=== PATIENT | female | born 1995 | race Caucasian/White ===

== ENCOUNTER 2017-02-10 19:13 | Emergency (ER) | payer MEDICAID ==
[~2017-02-10] VITALS: Ht 149.9 cm; Wt 43.1 kg
[2017-02-10 19:20] VITALS: BP 134/87
[2017-02-10] MEDS ORDERED: FAMOTIDINE 20 MG/2 ML VIAL IVP ONE (19:30)
[2017-02-10] MEDS ORDERED: ONDANSETRON 4 MG/2 ML VIAL IVP ONE (19:30)
[2017-02-10] MEDS ORDERED: NACL 0.9% 1,000 ML IV ONE (19:30)
--- NOTE | 2017-02-10 19:45 | NUR ---
BIBA BLS TO ER BED 7
--- NOTE | 2017-02-10 19:45 | NUR ---
PATIENT PRESENTS TO ED WITH C/O GENERAL WEAKNESS X 1 WEEK WITH NEAR SYNCOPE WHEN AT HOME. PT STATES SHE IS ALSO 7 WEEKS AND C/O RIB PAIN 9/10 . PT DENIES N/V/D; SKIN IS PINK/WARM/DRY; AAOX4 WITH EVEN AND STEADY GAIT; LUNGS CLEAR BL; HR EVEN AND REGULAR; PT DENIES ANY FEVER, CP, SOB, OR COUGH AT THIS TIME; PATIENT STATES PAIN OF 9/10 AT THIS TIME; VSS; PATIENT POSITIONED FOR COMFORT; HOB ELEVATED; BEDRAILS UP X2; BED DOWN. ER MD MADE AWARE OF PT STATUS.
--- NOTE | 2017-02-10 19:46 | NUR ---
PT JUST STATED SHE HAS TUMOR IS BILAT BREAST AND RIGHT ARMPIT
[2017-02-10 19:53] LABS: BASOPHILS # (AUTO) 0.1 K/uL (0.00-0.22); BASOPHILS % (AUTO) 0.8 % (0.0-2.0); EOSINOPHILS # (AUTO) 0.5 K/uL (0-0.4); EOSINOPHILS % (AUTO) 5.6 % (0.0-4.0); HEMATOCRIT 37.6 % (36-48); HEMOGLOBIN 12.5 g/dL (12.0-16.0); LYMPHOCYTES # (AUTO) 0.9 K/uL (2.5-16.5); LYMPHOCYTES % (AUTO) 10.7 % (20.5-51.1); MEAN CORPUSCULAR HEMOGLOBIN 30 pg (27-31); MEAN CORPUSCULAR HGB CONC 33 g/dL (33-37); MEAN CORPUSCULAR VOLUME 90 fL (80-94); MONOCYTES # (AUTO) 0.7 K/uL (0.8-1.0); MONOCYTES % (AUTO) 8.7 % (1.7-9.3); NEUTROPHILS # (AUTO) 6.1 K/uL (1.8-7.7); NEUTROPHILS % (AUTO) 74.2 % (42.2-75.2); PLATELET COUNT (AUTO) 191 K/uL (140-450); RED CELL DISTRIBUTION WIDTH 12.3 % (11.6-13.7); WHITE BLOOD COUNT (AUTO) 8.3 K/uL (4.5-11.0)
[2017-02-10 20:03] LABS: ANION GAP 12.7 (8-16); CARBON DIOXIDE 25.8 mmol/L (21-32); CREATININE 0.4 mg/dL (0.6-1.3); POTASSIUM 3.5 mmol/L (3.5-5.1)
--- NOTE | 2017-02-10 20:06 | NUR ---
PT LEFT FOR ULTRASOUND
--- NOTE | 2017-02-10 20:45 | NUR ---
Patient being evaluated by physician DR YEH at bedside.
[2017-02-10 21:15] VITALS: BP 127/74
--- NOTE | 2017-02-10 21:15 | NUR ---
Patient discharged with v/s stable. Written and verbal after care instructions given and explained. Patient alert, oriented and verbalized understanding of instructions. Ambulatory with steady gait. All questions addressed prior to discharge. ID band removed. Patient advised to follow up with PMD. Rx of Zofran and Macrobid given. Patient educated on indication of medication including possible reaction and side effects. Opportunity to ask questions provided and answered.
== END 2017-02-10 21:15 | disposition home or self-care (01) ==
LOC: MED 19:13
DX: O23.41 Unspecified infection of urinary tract in pregnancy, first trimester (principal); O21.0 Mild hyperemesis gravidarum; Z3A.01 Less than 8 weeks gestation of pregnancy
CPT/HCPCS: 36415; 76801; 76817; 80048; 81002; 81025; 84702; 85025; 86900; 86901; 96361; 96374; 96375; 99285; J2405; J3490; J7030

== ENCOUNTER 2020-06-09 15:27 | Emergency (ER) | payer MEDICAID, OTHER ==
[~2020-06-09] VITALS: Ht 162.6 cm; Wt 59.0 kg
[2020-06-09 15:31] VITALS: BP 161/92
--- NOTE | 2020-06-09 15:48 | NUR ---
C/O VOMITING SINCE THIS MORNING AT 4 AM, LOWER LEFT QUADRANT PAIN, PT FEELS WEAK, STATES "IT FEELS LIKE IM GONNA FAINT" LMP: 05/18/2020 NO PMH NKA
[2020-06-09] MEDS ORDERED: ONDANSETRON 4 MG/2 ML VIAL IVP ONE (16:45)
[2020-06-09] MEDS ORDERED: HALOPERIDOL IM 5 MG/ML VIAL IVP ONE (16:45)
[2020-06-09] MEDS ORDERED: NACL 0.9% 1,000 ML IV ONE (16:45)
[2020-06-09 17:09] LABS: BASOPHILS % (AUTO) 0.2 % (0.0-2.0); HEMOGLOBIN 13.5 g/dL (12.0-16.0); LYMPHOCYTES # (AUTO) 0.4 K/uL (2.5-16.5); MEAN CORPUSCULAR HEMOGLOBIN 32 pg (27-31); MEAN CORPUSCULAR HGB CONC 34 g/dL (33-37); MEAN CORPUSCULAR VOLUME 93.2 fL (80-94); MONOCYTES # (AUTO) 0.2 K/uL (0.8-1.0); MONOCYTES % (AUTO) 2.3 % (1.7-9.3); NEUTROPHILS % (AUTO) 92.5 % (42.2-75.2); PLATELET COUNT (AUTO) 204 K/uL (140-450); RED BLOOD CELL COUNT(AUTO) 4.29 MIL/uL (4.20-5.40); RED CELL DISTRIBUTION WIDTH 12.8 % (11.6-13.7); WHITE BLOOD COUNT (AUTO) 7.5 K/uL (4.8-10.8)
[2020-06-09 17:23] LABS: ALBUMIN 5.1 g/dL (3.4-5.0); ANION GAP 21.7 (8-16); CARBON DIOXIDE 18.9 mmol/L (21-32); CREATININE 0.5 mg/dL (0.6-1.3); POTASSIUM 3.6 mmol/L (3.5-5.1); TOTAL BILIRUBIN 1.1 mg/dL (0.0-1.0)
[2020-06-09 17:26] LABS: APPEARANCE,URINE CLEAR (CLEAR); BILIRUBIN,URINE NEGATIVE (NEGATIVE); BLOOD, URINE NEGATIVE (NEGATIVE); COLOR,URINE YELLOW (YELLOW); LEUKOCYTE ESTERASE ,URINE NEGATIVE (NEGATIVE); NITRITE, URINE NEGATIVE (NEGATIVE); PH,URINE 7.5 (5.0-9.0); UGLUCOSE NEGATIVE (NEGATIVE)
[2020-06-09 17:44] LABS: BARBITURATE, URINE NEGATIVE ng/ml (NEG <=200); BENZODIAZEPINE, URINE NEGATIVE ng/mL (NEG <=200); CANNABINOID, URINE POSITIVE ng/mL (NEG <=50); COCAINE, URINE NEGATIVE ng/mL (NEG <=300); OPIATE, URINE NEGATIVE ng/mL (NEG <=2000); PHENCYCLIDINE SCREEN,URINE NEGATIVE ng/mL (NEG <=25)
[2020-06-09 18:10] VITALS: BP 161/92
== END 2020-06-09 18:11 | disposition home or self-care (01) ==
LOC: MED 15:27
DX: R11.15 Cyclical vomiting syndrome unrelated to migraine (principal); F12.90 Cannabis use, unspecified, uncomplicated; R10.9 Unspecified abdominal pain; R11.2 Nausea with vomiting, unspecified
CPT/HCPCS: 36415; 80053; 80305; 81003; 82150; 83690; 85025; 96361; 96374; 96375; 99284; J1630; J2405; 81025

== ENCOUNTER 2020-06-11 09:05 | Emergency (ER) | payer OTHER ==
[~2020-06-11] VITALS: Ht 149.9 cm; Wt 44.9 kg
[2020-06-11 09:07] VITALS: BP 133/76
--- NOTE | 2020-06-11 09:13 | NUR ---
Pt ambulated to bed 07
--- NOTE | 2020-06-11 09:18 | NUR ---
PT C/O LOWER ABDOMINAL/SUPRAPUBIC PAIN WITH DYSURIA FOR 3 DAYS EXACERBATING TODAY AT 4AM ACCOMPANIED BY PERSISTANT N/V X 3 DAYS. PT WAS SEEN IN OUR ER 3 DAYS AGO AND TX WITH ZOFRAN ONLY WITH RELIEF ON THE FIRST DAY. PT STATES WARM SHOWER RELIEVES SYMPTOMS BUT ONLY WHILE IN SHOWER. NO CVAT JASPER ON PERCUSSION. ABDOMEN SOFT, FLAT, BUT TENDER TO LIGHT AND DEEP PALPATION. PT DENIES ANY FEVER, CP, SOB, OR COUGH AT THIS TIME; PATIENT STATES PAIN OF 7/10 AT THIS TIME; VSS; PATIENT POSITIONED FOR COMFORT; HOB ELEVATED; BEDRAILS UP X1; BED DOWN. ER MD MADE AWARE OF PT STATUS.
[2020-06-11] MEDS ORDERED: ONDANSETRON 4 MG/2 ML VIAL IVP ONE (09:40)
[2020-06-11] MEDS ORDERED: NACL 0.9% 1,000 ML IV ONE (09:40)
[2020-06-11] MEDS ORDERED: KETOROLAC 30 MG/ML VIAL IVP ONE (09:40)
--- NOTE | 2020-06-11 09:49 | NUR ---
20g IV placed to pts left AC. Blood drawn at this time.
[2020-06-11 10:09] LABS: APPEARANCE,URINE HAZY (CLEAR); BILIRUBIN,URINE 1+ (NEGATIVE); BLOOD, URINE NEGATIVE (NEGATIVE); COLOR,URINE YELLOW (YELLOW); LEUKOCYTE ESTERASE ,URINE TRACE (NEGATIVE); NITRITE, URINE NEGATIVE (NEGATIVE); PH,URINE 6.5 (5.0-9.0); UGLUCOSE NEGATIVE (NEGATIVE)
[2020-06-11 10:13] LABS: BASOPHILS % (AUTO) 0.5 % (0.0-2.0); HEMATOCRIT 40.8 % (36-48); HEMOGLOBIN 14.1 g/dL (12.0-16.0); LYMPHOCYTES # (AUTO) 0.6 K/uL (2.5-16.5); LYMPHOCYTES % (AUTO) 12.1 % (20.5-51.1); MEAN CORPUSCULAR HEMOGLOBIN 32 pg (27-31); MEAN CORPUSCULAR HGB CONC 35 g/dL (33-37); MEAN CORPUSCULAR VOLUME 92.4 fL (80-94); MONOCYTES # (AUTO) 0.1 K/uL (0.8-1.0); MONOCYTES % (AUTO) 2.7 % (1.7-9.3); NEUTROPHILS # (AUTO) 4.1 K/uL (1.8-7.7); NEUTROPHILS % (AUTO) 84.7 % (42.2-75.2); PLATELET COUNT (AUTO) 224 K/uL (140-450); RED BLOOD CELL COUNT(AUTO) 4.41 MIL/uL (4.20-5.40); RED CELL DISTRIBUTION WIDTH 12.8 % (11.6-13.7); WHITE BLOOD COUNT (AUTO) 4.9 K/uL (4.8-10.8)
--- NOTE | 2020-06-11 10:19 | NUR ---
U/S IS AT BEDSIDE.
[2020-06-11 10:21] LABS: ALBUMIN 5.1 g/dL (3.4-5.0); ANION GAP 18.6 (8-16); CARBON DIOXIDE 23.7 mmol/L (21-32); CREATININE 0.7 mg/dL (0.6-1.3); POTASSIUM 3.3 mmol/L (3.5-5.1)
[2020-06-11 10:22] LABS: RBC,URINE 0-5 /HPF (0-5)
--- NOTE | 2020-06-11 10:49 | NUR ---
2ND URINE SAMPLE OBTAINED AND SENT TO THE LAB.
[2020-06-11 11:50] VITALS: BP 122/71
--- NOTE | 2020-06-11 11:50 | NUR ---
Patient discharged with v/s stable. Written and verbal after care instructions given and explained. Patient alert, oriented and verbalized understanding of instructions. Ambulatory with steady gait. All questions addressed prior to discharge. ID band removed. Patient advised to follow up with PMD. Rx of Zofran, Naprosyn, and Macrobid given. Patient educated on indication of medication including possible reaction and side effects. Opportunity to ask questions provided and answered.
[2020-06-14 06:17] LABS: CHLAMYDIA TRACHOMATIS AMP DNA Negative (Negative)
== END 2020-06-11 11:50 | disposition home or self-care (01) ==
LOC: MED 09:05
DX: N83.201 Unspecified ovarian cyst, right side (principal); N39.0 Urinary tract infection, site not specified; K21.9 Gastro-esophageal reflux disease without esophagitis; F12.90 Cannabis use, unspecified, uncomplicated
CPT/HCPCS: 36415; 76830; 80053; 81001; 81025; 83690; 85025; 87086; 93976; 96361; 96374; 96375; 99284; J1885; J2405; J7030; Q0092

== ENCOUNTER 2020-09-16 08:57 | Emergency (ER) | payer OTHER ==
[~2020-09-16] VITALS: Ht 147.3 cm; Wt 45.4 kg
[2020-09-16 09:12] VITALS: BP 115/69
--- NOTE | 2020-09-16 09:16 | NUR ---
24 y/o female A&OX4 c/o N/V X1day. Pt states she has had this happen before, states she feels weak and dizziness present. Denies fever, chill. Abdomen is soft, flat, non-tender, bowel sounds active X4. PMH: R ovarian cyst Denies RX NKA
[2020-09-16] MEDS ORDERED: NACL 0.9% 1,000 ML IV ONE (09:30)
[2020-09-16] MEDS ORDERED: ONDANSETRON 4 MG/2 ML VIAL IVP ONE (09:30)
--- NOTE | 2020-09-16 09:30 | NUR ---
Established IV to right AC, good blood return noted. Pt tolerated procedure well.
[2020-09-16 09:51] LABS: BASOPHILS % (AUTO) 0.3 % (0.0-2.0); HEMATOCRIT 40.5 % (36-48); HEMOGLOBIN 13.8 g/dL (12.0-16.0); LYMPHOCYTES # (AUTO) 0.8 K/uL (2.5-16.5); LYMPHOCYTES % (AUTO) 7.1 % (20.5-51.1); MEAN CORPUSCULAR HEMOGLOBIN 31 pg (27-31); MEAN CORPUSCULAR HGB CONC 34 g/dL (33-37); MEAN CORPUSCULAR VOLUME 91.1 fL (80-94); MONOCYTES # (AUTO) 0.4 K/uL (0.8-1.0); MONOCYTES % (AUTO) 3.4 % (1.7-9.3); NEUTROPHILS # (AUTO) 10.1 K/uL (1.8-7.7); NEUTROPHILS % (AUTO) 89.2 % (42.2-75.2); PLATELET COUNT (AUTO) 202 K/uL (140-450); RED BLOOD CELL COUNT(AUTO) 4.44 MIL/uL (4.20-5.40); RED CELL DISTRIBUTION WIDTH 12.8 % (11.6-13.7); WHITE BLOOD COUNT (AUTO) 11.3 K/uL (4.8-10.8)
[2020-09-16] MEDS ORDERED: HALOPERIDOL IM 5 MG/ML VIAL IVP ONE (10:25)
[2020-09-16 10:44] LABS: ALBUMIN 5.3 g/dL (3.4-5.0); ANION GAP 20.5 (8-16); CARBON DIOXIDE 21.8 mmol/L (21-32); CREATININE 0.6 mg/dL (0.6-1.3); POTASSIUM 3.3 mmol/L (3.5-5.1); TOTAL BILIRUBIN 0.8 mg/dL (0.0-1.0)
--- NOTE | 2020-09-16 11:47 | NUR ---
Pt sleeping, visible rise and fall of chest VSS, will continue to monitor.
[2020-09-16 12:01] LABS: BILIRUBIN,URINE NEGATIVE (NEGATIVE); BLOOD, URINE NEGATIVE (NEGATIVE); COLOR,URINE YELLOW (YELLOW); LEUKOCYTE ESTERASE ,URINE NEGATIVE (NEGATIVE); NITRITE, URINE NEGATIVE (NEGATIVE); PH,URINE 7.5 (5.0-9.0); UGLUCOSE NEGATIVE (NEGATIVE)
[2020-09-16 12:11] LABS: BARBITURATE, URINE NEGATIVE ng/ml (NEG <=200); BENZODIAZEPINE, URINE NEGATIVE ng/mL (NEG <=200); CANNABINOID, URINE POS ng/mL (NEG <=50); COCAINE, URINE NEGATIVE ng/mL (NEG <=300); OPIATE, URINE NEGATIVE ng/mL (NEG <=2000); PHENCYCLIDINE SCREEN,URINE NEGATIVE ng/mL (NEG <=25)
[2020-09-16 12:13] LABS: RBC,URINE 0-5 /HPF (0-5); WBC,URINE 0-5 /HPF (0-5)
[2020-09-16 12:14] LABS: APPEARANCE,URINE SLIGHTLY HAZY (CLEAR)
--- NOTE | 2020-09-16 13:09 | NUR ---
Dr. Hunter at pt bedside.
[2020-09-16 13:26] VITALS: BP 104/58
--- NOTE | 2020-09-16 13:27 | NUR ---
Patient discharged with v/s stable. Written and verbal after care instructions given and explained. Patient alert, oriented and verbalized understanding of instructions. Ambulatory with steady gait. All questions addressed prior to discharge. ID band removed. Patient advised to follow up with PMD. Rx of Zofran 4mg given. Patient educated on indication of medication including possible reaction and side effects. Opportunity to ask questions provided and answered.
== END 2020-09-16 13:27 | disposition home or self-care (01) ==
LOC: MED 08:57
DX: R11.2 Nausea with vomiting, unspecified (principal); T40.7X5A Adverse effect of cannabis (derivatives), initial encounter; K21.9 Gastro-esophageal reflux disease without esophagitis; F12.90 Cannabis use, unspecified, uncomplicated; Y92.89 Other specified places as the place of occurrence of the external cause
CPT/HCPCS: 36415; 80053; 80305; 81001; 81025; 84702; 85025; 96361; 96374; 96375; 99284; J1630; J2405; J7030

== ENCOUNTER 2020-10-08 10:17 | Emergency (ER) | payer OTHER ==
[~2020-10-08] VITALS: Ht 149.9 cm; Wt 56.7 kg
[2020-10-08 10:27] VITALS: BP 137/84
--- NOTE | 2020-10-08 10:32 | NUR ---
PT AMB TO BED 12
--- NOTE | 2020-10-08 10:40 | NUR ---
PT C/O NAUSEA, VOMITING, AND UPPER ABDOMINAL PAIN 10/10 SINCE 5AM THIS MORNING. DENIES COVID EXPOSURE. ABDOMEN IS SOFT AND TENDER TO PALPATION. PMH: GERD
[2020-10-08] MEDS ORDERED: NACL 0.9% 1,000 ML IV SCH (10:45)
[2020-10-08] MEDS ORDERED: ONDANSETRON 4 MG/2 ML VIAL IVP ONE (10:45)
[2020-10-08] MEDS ORDERED: FAMOTIDINE 20 MG/2 ML VIAL IVP ONE (10:45)
[2020-10-08] MEDS ORDERED: HALOPERIDOL IM 5 MG/ML VIAL IM ONE (11:05)
[2020-10-08] MEDS ORDERED: HALOPERIDOL IM 5 MG/ML VIAL ONE (11:06)
[2020-10-08 11:23] LABS: BASOPHILS % (AUTO) 0.5 % (0.0-2.0); EOSINOPHILS % (AUTO) 0.1 % (0.0-4.0); HEMATOCRIT 40.1 % (36-48); HEMOGLOBIN 13.9 g/dL (12.0-16.0); LYMPHOCYTES # (AUTO) 0.7 K/uL (2.5-16.5); LYMPHOCYTES % (AUTO) 9.7 % (20.5-51.1); MEAN CORPUSCULAR HEMOGLOBIN 31 pg (27-31); MEAN CORPUSCULAR HGB CONC 35 g/dL (33-37); MEAN CORPUSCULAR VOLUME 89.4 fL (80-94); MONOCYTES # (AUTO) 0.1 K/uL (0.8-1.0); NEUTROPHILS # (AUTO) 6.2 K/uL (1.8-7.7); NEUTROPHILS % (AUTO) 87.7 % (42.2-75.2); PLATELET COUNT (AUTO) 236 K/uL (140-450); RED BLOOD CELL COUNT(AUTO) 4.49 MIL/uL (4.20-5.40); RED CELL DISTRIBUTION WIDTH 12.9 % (11.6-13.7); WHITE BLOOD COUNT (AUTO) 7.1 K/uL (4.8-10.8)
[2020-10-08 11:35] LABS: ALBUMIN 4.9 g/dL (3.4-5.0); ANION GAP 20.7 (8-16); CARBON DIOXIDE 18.4 mmol/L (21-32); CREATININE 0.7 mg/dL (0.6-1.3); POTASSIUM 3.1 mmol/L (3.5-5.1); TOTAL BILIRUBIN 0.7 mg/dL (0.0-1.0)
[2020-10-08] MEDS ORDERED: POTASSIUM CHLORIDE 10 MEQ TABER PO ONE (11:50)
[2020-10-08] MEDS ORDERED: MAGNESIUM OXIDE 400 MG TAB PO ONE (11:50)
[2020-10-08 12:31] VITALS: BP 125/85
--- NOTE | 2020-10-08 12:31 | NUR ---
Patient discharged with v/s stable. Written and verbal after care instructions given and explained. Patient alert, oriented and verbalized understanding of instructions. Ambulatory with steady gait. All questions addressed prior to discharge. ID band removed. Patient advised to follow up with PMD. Rx of ZOFRAN, PEPCID given. Patient educated on indication of medication including possible reaction and side effects. Opportunity to ask questions provided and answered.
== END 2020-10-08 12:31 | disposition home or self-care (01) ==
LOC: MED 10:17
DX: R11.2 Nausea with vomiting, unspecified (principal); F12.188 Cannabis abuse with other cannabis-induced disorder; E87.6 Hypokalemia; R03.0 Elevated blood-pressure reading, without diagnosis of hypertension
CPT/HCPCS: 36415; 80053; 81025; 83690; 85025; 96361; 96372; 96374; 96375; 99284; J1630; J2405; J3490; J7030

== ENCOUNTER 2020-10-11 11:41 | Emergency (ER) | payer OTHER ==
[2020-10-11] MEDS ORDERED: ONDANSETRON 4 MG ODT ONE (13:36)
[2020-10-11] MEDS ORDERED: KETOROLAC 30 MG/ML VIAL ONE (13:36)
[2020-10-11] MEDS ORDERED: HALOPERIDOL IM 5 MG/ML VIAL ONE (14:22)
== END 2020-10-11 14:56 | disposition home or self-care (01) ==
LOC: MED 11:41
DX: R11.10 Vomiting, unspecified (principal)
CPT/HCPCS: 96372; 99283; J1630; J1885; Q0162; 99281

== ENCOUNTER 2021-05-18 16:17 | Emergency (ER) | payer OTHER ==
[~2021-05-18] VITALS: Ht 149.9 cm; Wt 47.6 kg
[2021-05-18 16:49] VITALS: BP 146/93
--- NOTE | 2021-05-18 17:42 | NUR ---
25 Y/O FEMALE C/O VOMITING X1DAY PT STATES 10 TIMES WITH PELVIC PAIN 9/10 NON-RADIATING. PT STATES SHE SMOKED MARIJUANA A FEW DAYS AGO. DENIES FEVER/CHILLS. DENIES PMH NKA
[2021-05-18] MEDS ORDERED: KETOROLAC 15 MG/ML VIAL IVP ONE ×2 (17:50→18:40)
[2021-05-18] MEDS ORDERED: ONDANSETRON 4 MG/2 ML VIAL IVP ONE (17:50)
[2021-05-18] MEDS ORDERED: NACL 0.9% 1,000 ML IV ONE (17:50)
[2021-05-18] MEDS ORDERED: KETOROLAC 15 MG/ML VIAL ONE (17:55)
[2021-05-18] MEDS ORDERED: HALOPERIDOL IM 5 MG/ML VIAL IM ONE (18:25)
--- NOTE | 2021-05-18 19:03 | NUR ---
PT REFUSED PELVIC EXAM
[2021-05-18] MEDS ORDERED: ONDA-24 PO (19:11)
[2021-05-18] MEDS ORDERED: IBUP-2213 PO (19:11)
--- NOTE | 2021-05-18 19:12 | NUR ---
Pt report received from RUPERT Sol for continuation of care at this time.
--- NOTE | 2021-05-18 19:20 | NUR ---
ENDORSED TO DATABASE DBA FOR CONTINUOUS OF CARE
--- NOTE | 2021-05-18 19:48 | NUR ---
Patient reports she is allergic to ibuprofen. ERMD made aware.
[2021-05-18 19:50] VITALS: BP 138/87
[2021-05-19] MEDS ORDERED: CETI10SG1 PO (10:06)
[2021-05-19] MEDS ORDERED: FLUO0.0210 TP (10:06)
== END 2021-05-18 19:50 | disposition home or self-care (01) ==
LOC: MED 16:17
DX: N83.202 Unspecified ovarian cyst, left side (principal); G89.29 Other chronic pain; R11.2 Nausea with vomiting, unspecified; K21.9 Gastro-esophageal reflux disease without esophagitis; F12.90 Cannabis use, unspecified, uncomplicated; Z79.899 Other long term (current) drug therapy; Z88.6 Allergy status to analgesic agent
CPT/HCPCS: 36415; 76830; 81002; 81025; 87491; 96361; 96374; 96375; 96376; 99284; J1630; J1885; J2405; J7030; Q0163

== ENCOUNTER 2021-05-19 09:42 | Emergency (ER) | payer OTHER ==
[~2021-05-19] VITALS: Ht 149.9 cm; Wt 49.4 kg
[~2021-05-19 09:42] MED LIST: ONDA-24 PO
[2021-05-19 09:51] VITALS: BP 130/87
[2021-05-19] MEDS ORDERED: FLUO0.0210 TP (10:06)
[2021-05-19] MEDS ORDERED: CETI10SG1 PO (10:06)
[2021-05-19 10:19] VITALS: BP 130/87
--- NOTE | 2021-05-19 10:20 | NUR ---
Patient assessed, treated, and discharged with v/s stable by Dr Vasquez. Written and verbal after care instructions about contact dermatitis given and explained. Patient alert, oriented and verbalized understanding of instructions. Ambulatory with steady gait. All questions addressed prior to discharge. ID band removed. Patient advised to follow up with PMD. Rx of synalar, zyrtec given. Patient educated on indication of medication including possible reaction and side effects. Opportunity to ask questions provided and answered.
== END 2021-05-19 10:20 | disposition home or self-care (01) ==
LOC: MED 09:42
DX: L25.9 Unspecified contact dermatitis, unspecified cause (principal); K21.9 Gastro-esophageal reflux disease without esophagitis; Z88.6 Allergy status to analgesic agent; Z79.899 Other long term (current) drug therapy
CPT/HCPCS: 99283

== ENCOUNTER 2021-06-14 09:42 | Emergency (ER) | payer OTHER ==
[~2021-06-14 09:42] MED LIST changes: +CETI10SG1 PO; +FLUO0.0210 TP
--- NOTE | 2021-06-14 10:22 | NUR ---
CALLED AT 10.15 & 1022 .NO SHOW
--- NOTE | 2021-06-14 12:11 | NUR ---
LEFT WITHOUT BEING SEEN, NAME CALLED, NO ANSWER.
== END 2021-06-14 10:15 | disposition left against medical advice (07) ==
LOC: MED 09:42
DX: Z53.21 Procedure and treatment not carried out due to patient leaving prior to being seen by health care provider (principal)

== ENCOUNTER 2021-07-08 12:14 | Emergency (ER) | payer OTHER ==
[~2021-07-08] VITALS: Ht 149.9 cm; Wt 49.9 kg
--- NOTE | 2021-07-08 12:16 | NUR ---
PT BROUGHT TO BED 14 VIA [facility]
[2021-07-08 12:21] VITALS: BP 134/83
--- NOTE | 2021-07-08 13:56 | NUR ---
ADVISED RAMESH IQBAL OF PERSISTANT VOMITTING AND PATIENT'S COMPLAINT. NO ORDERS RECEIVED AT THIS TIME.
--- NOTE | 2021-07-08 14:00 | NUR ---
GWENDOLYN collected, walked to lab and handed to CPT. Marty
--- NOTE | 2021-07-08 14:09 | NUR ---
MD Busch evaluating pt at bedside
[2021-07-08] MEDS ORDERED: diphenhydrAMINE 50 MG/ML VIAL IVP ONE (14:15)
[2021-07-08] MEDS ORDERED: HALOPERIDOL IM 5 MG/ML VIAL IM ONE (14:15)
[2021-07-08] MEDS ORDERED: NACL 0.9% 1,000 ML IV ONE (14:15)
--- NOTE | 2021-07-08 16:51 | NUR ---
Patient does not wish to proceed with medical care recommended by DR ADAMSON. Patient given information related to possible complications, up to and including , which could occur as a result of leaving hospital at this time. Patient verbalizes understanding of risks involved leaving against medical advice. Patient has signed AMA form.IV REMOVED
[2021-07-08 16:52] VITALS: BP 134/83
== END 2021-07-08 16:51 | disposition left against medical advice (07) ==
LOC: MED 12:14
DX: R10.30 Lower abdominal pain, unspecified (principal); R19.7 Diarrhea, unspecified; R11.2 Nausea with vomiting, unspecified; F12.10 Cannabis abuse, uncomplicated; K21.9 Gastro-esophageal reflux disease without esophagitis; Z88.6 Allergy status to analgesic agent
CPT/HCPCS: 81002; 81025; 96372; 96374; 99284; J1200; J1630; J7030

== ENCOUNTER 2021-07-10 05:10 | Emergency (ER) | payer OTHER ==
[~2021-07-10] VITALS: Ht 149.9 cm; Wt 49.9 kg
--- NOTE | 2021-07-10 05:28 | NUR ---
[facility] TO ER BED 4
[2021-07-10 05:32] VITALS: BP 128/82
--- NOTE | 2021-07-10 05:40 | NUR ---
25 YO FEMALE BIBA TO BED 4 WITH C/O VOMITING AND ABDOMINAL PAIN X 3 DAYS. IS AWAKE AND ALERT, VERY RESTLESS. IS VOMITING UPON ARRIVAL MED HX: OVARIAN CYSTS, ABDOMINAL SURGERIES, SIEZURES, MUSCLE SPASMS ALLERGIES: IBUPROFEN
[2021-07-10 06:22] LABS: BASOPHILS % (AUTO) 0.5 % (0.0-2.0); EOSINOPHILS % (AUTO) 0.1 % (0.0-4.0); HEMATOCRIT 35.2 % (36-48); HEMOGLOBIN 12.2 g/dL (12.0-16.0); LYMPHOCYTES # (AUTO) 0.7 K/uL (2.5-16.5); LYMPHOCYTES % (AUTO) 12.7 % (20.5-51.1); MEAN CORPUSCULAR HEMOGLOBIN 31 pg (27-31); MEAN CORPUSCULAR HGB CONC 35 g/dL (33-37); MEAN CORPUSCULAR VOLUME 89.9 fL (80-94); MONOCYTES # (AUTO) 0.2 K/uL (0.8-1.0); MONOCYTES % (AUTO) 4.2 % (1.7-9.3); NEUTROPHILS # (AUTO) 4.8 K/uL (1.8-7.7); NEUTROPHILS % (AUTO) 82.5 % (42.2-75.2); PLATELET COUNT (AUTO) 224 K/uL (140-450); RED BLOOD CELL COUNT(AUTO) 3.92 MIL/uL (4.20-5.40); WHITE BLOOD COUNT (AUTO) 5.8 K/uL (4.8-10.8)
[2021-07-10] MEDS: diphenhydrAMINE 50 MG/ML VIAL IVP ONE (06:24)
[2021-07-10] MEDS: ONDANSETRON 4 MG/2 ML VIAL IVP ONE (06:25)
[2021-07-10] MEDS: HALOPERIDOL IM 5 MG/ML VIAL IVP ONE (06:27)
[2021-07-10 06:50] LABS: ANION GAP 18.3 (8-16); CARBON DIOXIDE 20.8 mmol/L (21-32); CREATININE 0.6 mg/dL (0.6-1.3); POTASSIUM 3.1 mmol/L (3.5-5.1)
[2021-07-10 06:59] LABS: ALBUMIN 4.8 g/dL (3.4-5.0); TOTAL BILIRUBIN 0.7 mg/dL (0.0-1.0)
--- NOTE | 2021-07-10 07:19 | NUR ---
RECEIVED REPORT FROM MARGOTH EMERY. ASSUMED CARE AT THIS TIME.
--- NOTE | 2021-07-10 07:21 | NUR ---
Patient appears to be resting with eyes closed. Respirations even and unlabored, on bedside bus driver/monitor. VSS. Will continue to monitor.
[2021-07-10] MEDS ORDERED: LOPE-289 PO (07:36)
[2021-07-10] MEDS ORDERED: ONDA8TAB87 PO (07:36)
[2021-07-10 07:54] VITALS: BP 110/56
--- NOTE | 2021-07-10 07:54 | NUR ---
Patient discharged with v/s stable. Written and verbal after care instructions given and explained. Patient alert, oriented and verbalized understanding of instructions. Ambulatory with steady gait. All questions addressed prior to discharge. ID band removed. Patient advised to follow up with PMD. Rx of Immodium and Zofran given. Patient educated on indication of medication including possible reaction and side effects. Opportunity to ask questions provided and answered.
[2021-07-10] MEDS ORDERED: BACL10TA4 PO (17:32)
[2021-07-11] MEDS ORDERED: ATA25 PO (18:09)
== END 2021-07-10 07:54 | disposition home or self-care (01) ==
LOC: MED 05:10
DX: R10.30 Lower abdominal pain, unspecified (principal); R11.2 Nausea with vomiting, unspecified; R19.7 Diarrhea, unspecified; K21.9 Gastro-esophageal reflux disease without esophagitis; F12.90 Cannabis use, unspecified, uncomplicated; Z98.890 Other specified postprocedural states; Z79.899 Other long term (current) drug therapy; Z88.6 Allergy status to analgesic agent
CPT/HCPCS: 36415; 80053; 81002; 81025; 83690; 85025; 96374; 96375; 99284; J1200; J1630; J2405; 99283

== ENCOUNTER 2021-07-10 15:08 | Emergency (ER) | payer OTHER ==
[~2021-07-10] VITALS: Ht 149.9 cm; Wt 49.9 kg
[~2021-07-10 15:08] MED LIST changes: +LOPE-289 PO; +ONDA8TAB87 PO
[2021-07-10 15:36] VITALS: BP 138/96
[2021-07-10] MEDS: BENZTROPINE 2 MG/2 ML AMP IM ONE (15:54)
[2021-07-10] MEDS: LORazepam 1 MG TAB PO ONE (15:55)
--- NOTE | 2021-07-10 15:57 | NUR ---
25 Y/O FEMALE C/O ANXIETY, "SHAKINESS AND NERVOUSNESS". PT STATES SHE WAS SEEN AT [facility] EARLIER THIS WEEK AND WAS TOLD "SHE DIDN'T HAVE ANYTHING". PT SEEN HERE IN ER X6HRS AGO STATES SHE IS FEELING SYMPTOMS AGAIN. DENIES N/V, DENIES FEVER/CHILLS. DENIES PMH ALLERGIES: IBUPROFEN
[2021-07-10] MEDS ORDERED: BACL10TA4 PO (17:32)
[2021-07-10 17:41] VITALS: BP 138/96
--- NOTE | 2021-07-10 17:42 | NUR ---
Patient discharged with v/s stable. Written and verbal after care instructions given and explained. Patient alert, oriented and verbalized understanding of instructions. Ambulatory with steady gait. All questions addressed prior to discharge. ID band removed. Patient advised to follow up with PMD. Rx of BACLOFEN given. Patient educated on indication of medication including possible reaction and side effects. Opportunity to ask questions provided and answered.
[2021-07-11] MEDS ORDERED: ATA25 PO (18:09)
== END 2021-07-10 17:42 | disposition home or self-care (01) ==
LOC: MED 15:08
DX: R25.8 Other abnormal involuntary movements (principal); M62.838 Other muscle spasm; R11.0 Nausea; K21.9 Gastro-esophageal reflux disease without esophagitis; F12.90 Cannabis use, unspecified, uncomplicated; Z79.899 Other long term (current) drug therapy; Z88.6 Allergy status to analgesic agent
CPT/HCPCS: 93005; 96372; 99283; J0515

== ENCOUNTER 2021-07-11 15:50 | Emergency (ER) | payer OTHER ==
[~2021-07-11] VITALS: Ht 149.9 cm; Wt 49.9 kg
[~2021-07-11 15:50] MED LIST changes: +BACL10TA4 PO
[2021-07-11 15:57] VITALS: BP 125/92
--- NOTE | 2021-07-11 16:03 | NUR ---
PT SENT TO LOBBY
[2021-07-11] MEDS ORDERED: LORazepam 1 MG TAB PO ONE (16:25)
--- NOTE | 2021-07-11 16:40 | NUR ---
25/F PRESENTS TO ED WITH C/O SHAKING AND PALPITATIONS. PATIENT STATES SHES BEEN FEELING ANXIOUS SINCE THIS MORNING STATING "I FEEL LIKE SOMETHING IS CRAWLING ON MY SKIN." DENIES ALCOHOL OR DRUG USE. STATES SHE WAS SEEN HERE YESTERDAY FOR THE SAME SYMPTOMS BUT STATES SYMPTOMS REOCCURED THIS MORNING. ALSO C/O 4/10 LEFT SIDED ABDOMINAL PAIN, DENIES N/V/D, DENIES CP, SOB, FEVER, CHILLS.
[2021-07-11 16:56] LABS: BASOPHILS % (AUTO) 0.6 % (0.0-2.0); EOSINOPHILS % (AUTO) 0.1 % (0.0-4.0); HEMATOCRIT 38.4 % (36-48); HEMOGLOBIN 13.1 g/dL (12.0-16.0); LYMPHOCYTES # (AUTO) 1.2 K/uL (2.5-16.5); LYMPHOCYTES % (AUTO) 15.5 % (20.5-51.1); MEAN CORPUSCULAR HEMOGLOBIN 31 pg (27-31); MEAN CORPUSCULAR HGB CONC 34 g/dL (33-37); MEAN CORPUSCULAR VOLUME 91.5 fL (80-94); MONOCYTES # (AUTO) 0.4 K/uL (0.8-1.0); NEUTROPHILS # (AUTO) 6.1 K/uL (1.8-7.7); NEUTROPHILS % (AUTO) 78.8 % (42.2-75.2); PLATELET COUNT (AUTO) 302 K/uL (140-450); RED CELL DISTRIBUTION WIDTH 12.9 % (11.6-13.7); WHITE BLOOD COUNT (AUTO) 7.8 K/uL (4.8-10.8)
[2021-07-11] MEDS ORDERED: BENZTROPINE 2 MG/2 ML AMP IM ONE (17:05)
[2021-07-11 17:16] LABS: ANION GAP 19.4 (8-16); CARBON DIOXIDE 22.5 mmol/L (21-32); CREATININE 0.7 mg/dL (0.6-1.3)
[2021-07-11 17:21] LABS: POTASSIUM 2.9 mmol/L (3.5-5.1)
[2021-07-11] MEDS ORDERED: ATA25 PO (18:09)
[2021-07-11 19:00] VITALS: BP 111/76
--- NOTE | 2021-07-11 19:00 | NUR ---
Patient discharged with v/s stable. Written and verbal after care instructions given and explained. Patient alert, oriented and verbalized understanding of instructions. Ambulatory with steady gait. All questions addressed prior to discharge. ID band removed. Patient advised to follow up with PMD. Rx of Atarax given. Patient educated on indication of medication including possible reaction and side effects. Opportunity to ask questions provided and answered.
[2021-07-12] MEDS ORDERED: LORA-476 PO (21:27)
== END 2021-07-11 19:00 | disposition home or self-care (01) ==
LOC: MED 15:50
DX: E87.6 Hypokalemia (principal); F41.9 Anxiety disorder, unspecified; K21.9 Gastro-esophageal reflux disease without esophagitis; Z88.6 Allergy status to analgesic agent; Z79.899 Other long term (current) drug therapy
CPT/HCPCS: 36415; 80048; 84484; 85025; 93005; 96372; 99284; J0515

== ENCOUNTER 2021-07-12 18:37 | Emergency (ER) | payer OTHER ==
[~2021-07-12] VITALS: Ht 149.9 cm; Wt 49.9 kg
[~2021-07-12 18:37] MED LIST changes: +ATA25 PO
[2021-07-12 18:44] VITALS: BP 113/68
--- NOTE | 2021-07-12 19:09 | NUR ---
BIB BOYFRIEND C/O ANXIETY, 05/03 RIVERA, BODY SHAKING X TODAY. PMH: ANXIETY, DEPRESSION, BIPOLAR.
--- NOTE | 2021-07-12 19:11 | NUR ---
PATIENT AMBULATED TO BED4.
--- NOTE | 2021-07-12 19:38 | NUR ---
Dr. Willis examining patient.
--- NOTE | 2021-07-12 19:40 | NUR ---
Patient presents c/o feeling anxious and reports similiar symptoms in the past. Seen here at [facility] Wednesday and states medication provided in ER alleviated symptoms. States left-sided chest tenderness that radiates to sternal, /10, "tender/sharp/intermittent" pain. Denies any medications prior to arrival. States recent stressors of of grandpa. Pt in no distress at this time. VSS; respirations even/unlabored. Bed locked in lowest position, side rails x 1, call light in reach. PMH: Seizures, anxiety, depression Meds: Abilify, prozac, gabapentin Sx: ovarian cyst 06/14
[2021-07-12] MEDS ORDERED: LORazepam 1 MG TAB PO ONE (19:55)
--- NOTE | 2021-07-12 20:07 | NUR ---
Lab at bedside
[2021-07-12 20:14] LABS: BASOPHILS % (AUTO) 0.8 % (0.0-2.0); EOSINOPHILS % (AUTO) 0.5 % (0.0-4.0); HEMATOCRIT 34.3 % (36-48); HEMOGLOBIN 11.9 g/dL (12.0-16.0); LYMPHOCYTES # (AUTO) 1.4 K/uL (2.5-16.5); LYMPHOCYTES % (AUTO) 23.8 % (20.5-51.1); MEAN CORPUSCULAR HEMOGLOBIN 31 pg (27-31); MEAN CORPUSCULAR HGB CONC 35 g/dL (33-37); MEAN CORPUSCULAR VOLUME 89.4 fL (80-94); MONOCYTES # (AUTO) 0.5 K/uL (0.8-1.0); MONOCYTES % (AUTO) 8.1 % (1.7-9.3); NEUTROPHILS # (AUTO) 3.9 K/uL (1.8-7.7); NEUTROPHILS % (AUTO) 66.8 % (42.2-75.2); PLATELET COUNT (AUTO) 256 K/uL (140-450); RED BLOOD CELL COUNT(AUTO) 3.83 MIL/uL (4.20-5.40); RED CELL DISTRIBUTION WIDTH 12.9 % (11.6-13.7); WHITE BLOOD COUNT (AUTO) 5.8 K/uL (4.8-10.8)
[2021-07-12 20:37] LABS: ALBUMIN 4.8 g/dL (3.4-5.0); ANION GAP 15.4 (8-16); CARBON DIOXIDE 24.1 mmol/L (21-32); CREATININE 0.6 mg/dL (0.6-1.3); POTASSIUM 3.5 mmol/L (3.5-5.1); TOTAL BILIRUBIN 0.7 mg/dL (0.0-1.0)
--- NOTE | 2021-07-12 20:37 | NUR ---
Patient reports positive relief after Ativan PO. "I feel a little better now." All pt needs met at this time.
[2021-07-12 20:47] LABS: FREE T4 (FREE THYROXINE) 1.43 ng/dL (0.76-1.46); THYROID STIMULATING HORMONE 0.69 uIU/mL (0.34-3.74)
[2021-07-12 21:00] VITALS: BP 108/72
[2021-07-12] MEDS ORDERED: LORA-476 PO (21:27)
== END 2021-07-12 21:33 | disposition home or self-care (01) ==
LOC: MED 18:37
DX: F41.0 Panic disorder [episodic paroxysmal anxiety] (principal); F32.9 Major depressive disorder, single episode, unspecified; F43.21 Adjustment disorder with depressed mood; K21.9 Gastro-esophageal reflux disease without esophagitis; Z88.6 Allergy status to analgesic agent; Z79.899 Other long term (current) drug therapy
CPT/HCPCS: 36415; 80053; 84439; 84443; 85025; 99283

== ENCOUNTER 2021-07-21 19:24 | Emergency (ER) | payer OTHER ==
[~2021-07-21] VITALS: Ht 149.9 cm; Wt 49.9 kg
[~2021-07-21 19:24] MED LIST changes: +LORA-476 PO
[2021-07-21 19:54] VITALS: BP 122/59
--- NOTE | 2021-07-21 19:57 | NUR ---
TO LOBBY A/W BED AMBULATORY
[2021-07-21] MEDS ORDERED: HYDROXYZINE HYDROCHLORIDE 25 MG TAB PO STA (20:36)
[2021-07-21] MEDS ORDERED: diphenhydrAMINE 50 MG/ML VIAL IM ONE (20:40)
--- NOTE | 2021-07-21 20:59 | NUR ---
PT TAKEN TO XRAY
--- NOTE | 2021-07-21 21:04 | NUR ---
PT RETURN TO [facility]
[2021-07-21] MEDS ORDERED: diphenhydrAMINE 50 MG/ML VIAL ONE (21:43)
[2021-07-21] MEDS ORDERED: HYDROXYZINE HYDROCHLORIDE 25 MG TAB ONE (21:43)
[2021-07-21] MEDS ORDERED: ATA25 PO (22:51)
--- NOTE | 2021-07-21 23:01 | NUR ---
Patient discharged with v/s stable. Written and verbal after care instructions given and explained. Patient alert, oriented and verbalized understanding of instructions. Ambulatory with steady gait. All questions addressed prior to discharge. ID band removed. Patient advised to follow up with PMD. Rx of ATARAX given. Patient educated on indication of medication including possible reaction and side effects. Opportunity to ask questions provided and answered.
== END 2021-07-21 23:01 | disposition home or self-care (01) ==
LOC: MED 19:24
DX: F41.9 Anxiety disorder, unspecified (principal); K21.9 Gastro-esophageal reflux disease without esophagitis; F12.90 Cannabis use, unspecified, uncomplicated; F14.90 Cocaine use, unspecified, uncomplicated; Z79.899 Other long term (current) drug therapy; Z88.8 Allergy status to other drugs, medicaments and biological substances
CPT/HCPCS: 36415; 71045; 84484; 96372; 99284; J1200

== ENCOUNTER 2021-07-23 07:17 | Emergency (ER) | payer OTHER ==
[~2021-07-23] VITALS: Ht 149.9 cm; Wt 46.7 kg
[2021-07-23 07:22] VITALS: BP 111/62
--- NOTE | 2021-07-23 07:35 | NUR ---
DR. KLINE BEDSIDE EVALUATING PT
--- NOTE | 2021-07-23 07:37 | NUR ---
25 Y F C/O CHEST PAIN SINCE LAST NIGHT THAT IS NON-RADIATING. PT STATED PAIN IS FELT LIKE "FLUTTERING IN THE MIDDLE AND RIGHT UNDER HER L BREAST." PT HAS ALSO FELT N/V AND ABDOMINAL PAIN X 4 HOURS. UPON ASSSESSMENT PT HAS TENDERNESS WITH PALPATION, BREATH SOUNDS HEARD, AND S1/S2 HEARD. PMH: ANXIETY MEDS: ATARAX ALLERGY: IBUPROFEN
[2021-07-23] MEDS ORDERED: LORazepam 2 MG/ML VIAL IM ONE (07:50)
[2021-07-23] MEDS ORDERED: ONDANSETRON 4 MG ODT PO ONE (07:50)
[2021-07-23] MEDS ORDERED: hydrOXYzine PAMOATE 25 MG CAP PO STA (07:55)
[2021-07-23 08:24] VITALS: BP 111/62
--- NOTE | 2021-07-23 08:25 | NUR ---
Patient discharged with v/s stable. Written and verbal after care instructions given and explained. Patient verbalized understanding. Ambulatory with steady gait. All questions addressed prior to discharge. Advised to follow up with PMD.
--- NOTE | 2021-07-23 08:31 | NUR ---
PT PROVIDED WITH MENTAL HEALTH RESOURCE PACKET WITH DISCHARGE PACKET
== END 2021-07-23 08:24 | disposition home or self-care (01) ==
LOC: MED 07:17
DX: F41.0 Panic disorder [episodic paroxysmal anxiety] (principal); R11.0 Nausea; K21.9 Gastro-esophageal reflux disease without esophagitis; Z86.69 Personal history of other diseases of the nervous system and sense organs; Z79.899 Other long term (current) drug therapy; Z88.6 Allergy status to analgesic agent
CPT/HCPCS: 96372; 99283; J2060; Q0162; Q0177

== ENCOUNTER 2021-07-30 07:05 | Emergency (ER) | payer OTHER ==
[~2021-07-30] VITALS: Ht 149.9 cm; Wt 52.2 kg
[2021-07-30 07:09] VITALS: BP 111/84
--- NOTE | 2021-07-30 07:09 | NUR ---
TO BED AMBULATORY
--- NOTE | 2021-07-30 07:20 | NUR ---
25 Y/O FEMALE C/O LOWER ABD PAIN, NAUSEA, AND SOB XTHIS MORNING. PT REPORTS HAVING SEVERE ANXIETY AND STATES SHE FEELS VERY ANXIOUS. PT ADMITS TO SMOKING MARIJUANA AND SNORTING COCAINE LAST NIGHT. PT STATES THAT HER PCP CHANGED HER ANXIETY MEDICATION AND SHE HASNT BEEN TAKING ANYTHING. PT A/O X4 WITH EVEN AND UNLABORED RESPIRATIONS. PMH:SEIZURES, ANXIETY ALLERGIES:IBUPROFEN
--- NOTE | 2021-07-30 07:23 | NUR ---
DR ANVARRO AT BEDSIDE EVALUATING PT
[2021-07-30] MEDS ORDERED: LORazepam 2 MG/ML VIAL IM ONE (07:35)
--- NOTE | 2021-07-30 07:38 | NUR ---
PT AMBULATED TO RESTROOM FOR URINE SAMPLE
--- NOTE | 2021-07-30 09:05 | NUR ---
PT LAYING IN BED WITH EVEN AND UNLABORED RESPIRATIONS. PT STATES ANXIETY AND NAUSEA IS MUCH BETTER
[2021-07-30 09:21] LABS: COCAINE, URINE POSITIVE ng/mL (NEG <=300)
[2021-07-30 09:22] LABS: BARBITURATE, URINE NEGATIVE ng/ml (NEG <=200); BENZODIAZEPINE, URINE NEGATIVE ng/mL (NEG <=200); CANNABINOID, URINE POSITIVE ng/mL (NEG <=50); OPIATE, URINE NEGATIVE ng/mL (NEG <=2000); PHENCYCLIDINE SCREEN,URINE NEGATIVE ng/mL (NEG <=25)
--- NOTE | 2021-07-30 10:20 | NUR ---
Patient discharged with v/s stable. Written and verbal after care instructions ABOUT PANIC ATTACK AND FINDING TREATMENT FOR ADDICTION given and explained. Patient verbalized understanding. Ambulatory with steady gait. All questions addressed prior to discharge. Advised to follow up with PMD.
[2021-07-30 10:22] VITALS: BP 128/69
[2021-07-31] MEDS ORDERED: ONDA-24 PO (11:34)
== END 2021-07-30 10:20 | disposition home or self-care (01) ==
LOC: MED 07:05
DX: F41.9 Anxiety disorder, unspecified (principal); F19.10 Other psychoactive substance abuse, uncomplicated; K21.9 Gastro-esophageal reflux disease without esophagitis; Z86.69 Personal history of other diseases of the nervous system and sense organs; Z98.890 Other specified postprocedural states; Z79.899 Other long term (current) drug therapy; Z88.6 Allergy status to analgesic agent
CPT/HCPCS: 80305; 81025; 96372; 99283; J2060

== ENCOUNTER 2021-07-31 08:16 | Emergency (ER) | payer OTHER ==
[~2021-07-31] VITALS: Ht 149.9 cm; Wt 49.9 kg
[2021-07-31 08:26] VITALS: BP 129/75
--- NOTE | 2021-07-31 08:32 | NUR ---
PATIENT AMBULATED TO BED 8.
--- NOTE | 2021-07-31 08:36 | NUR ---
Patient being evaluated by DR HORAN at bedside.
--- NOTE | 2021-07-31 08:40 | NUR ---
Lucas hanna in ED - 07/31/21 at 0904 by [email or web address] 20 G IV ESTABLISHED ON R AC. BLOOD WORK COLLECTED FROM IV
--- NOTE | 2021-07-31 08:42 | NUR ---
25 Y FEMALE WITH C/O ABDOMINAL PAIN AND N/V FOR THE PAST 2 DAYS. PER PT SHE HAS HAD SOME ANXIETY THE PAST FEW DAYS AND SMOKED SOME MARIJUANA TO HELP WITH HER ANXIETY. PT ALSO STATED SHE LAST HAD DIARRHEA YESTERDAY. BOWEL SOUNDS ARE HYPOACTIVE AND ABDOMEN IS TENDER TO TOUCH. PMH:SEVERE ANXIETY, GERD, SEIZURE, MARIJUANA SMOKING ALLERGIES: IBUPROFEN
--- NOTE | 2021-07-31 08:50 | NUR ---
20 G IV ESTABLISHED ON R AC. BLOOD WORK COLLECTED FROM IV
--- NOTE | 2021-07-31 09:03 | NUR ---
BLOOD WORK COLLECTED AND WALKED OVER TO LAB
[2021-07-31] MEDS: METOCLOPRAMIDE 10 MG/2 ML INJ VIAL IVP ONE (09:05)
[2021-07-31] MEDS: FAMOTIDINE 20 MG/2 ML VIAL IVP ONE (09:05)
[2021-07-31] MEDS: NACL 0.9% 1,000 ML IV ONE (09:06)
[2021-07-31] MEDS: diphenhydrAMINE 50 MG/ML VIAL IVP ONE ×2 (09:06→10:17)
--- NOTE | 2021-07-31 09:20 | NUR ---
UA COLLECTED AND WALKED OVER TO LAB BY RUPERT PERALTA
[2021-07-31 09:31] LABS: BILIRUBIN,URINE NEGATIVE (NEGATIVE); BLOOD, URINE NEGATIVE (NEGATIVE); COLOR,URINE YELLOW (YELLOW); LEUKOCYTE ESTERASE ,URINE 1+ (NEGATIVE); NITRITE, URINE NEGATIVE (NEGATIVE); UGLUCOSE NEGATIVE (NEGATIVE)
[2021-07-31 09:33] LABS: ANION GAP 14.5 (8-16); CARBON DIOXIDE 23.4 mmol/L (21-32); CREATININE 0.4 mg/dL (0.6-1.3); POTASSIUM 3.9 mmol/L (3.5-5.1)
[2021-07-31] MEDS: HALOPERIDOL IM 5 MG/ML VIAL IM ONE (09:35)
--- NOTE | 2021-07-31 09:35 | NUR ---
PT ACTIVELY STATING SHE IS HAVING AN AXIETY ATTACK AT THE MOMENT. PT STATED "HER HEART IS BEATING FAST AND SHE DOES NOT KNOW WHY HER ANXIETY IS GETTING WORSE AT THE MOMENT." INSTRUCTED PATIENT TO FOCUS ON BREATHING AND INFORMED ER MD
--- NOTE | 2021-07-31 09:37 | NUR ---
PT ACTIVELY VOMITTING BEDSIDE
[2021-07-31 09:43] LABS: RBC,URINE 0-5 /HPF (0-5)
[2021-07-31 09:44] LABS: WBC,URINE 0-5 /HPF (0-5)
[2021-07-31 09:45] LABS: APPEARANCE,URINE HAZY (CLEAR)
--- NOTE | 2021-07-31 09:59 | NUR ---
Patient appears to be resting comfortably in bed with eyes closed and lights off. Vital Signs within normal limits. Respirations even and unlabored. Pt anxiety seems to have resolved itself. Will continue to monitor pt status
--- NOTE | 2021-07-31 10:14 | NUR ---
PT ACTIVELY HAVING ANXIETY ATTACK IN BED. PT IS SHAKING AND STATING "SHE IS HAVING MUSCLE SPAMS AND SHE CANNOT FEEL HER FEET." PT INFORMED TO BREATH TO STRAW, BUT NON-COMPLIANT IN CALMING DOWN. ER MD MADE AWARE AND PRESCRIBED MEDICATION TO HELP
[2021-07-31] MEDS ORDERED: ONDA-24 PO (11:34)
[2021-07-31 11:39] VITALS: BP 117/64
[2021-08-01] MEDS ORDERED: BACL10TA4 PO (20:05)
== END 2021-07-31 11:40 | disposition home or self-care (01) ==
LOC: MED 08:16
DX: R11.10 Vomiting, unspecified (principal); F41.9 Anxiety disorder, unspecified; F14.90 Cocaine use, unspecified, uncomplicated; F12.90 Cannabis use, unspecified, uncomplicated; Z79.899 Other long term (current) drug therapy; Z88.6 Allergy status to analgesic agent; Z98.890 Other specified postprocedural states
CPT/HCPCS: 36415; 80048; 81001; 81025; 87086; 96361; 96372; 96374; 96375; 96376; 99284; J1200; J1630; J2765; J3490; J7030

== ENCOUNTER 2021-08-01 18:09 | Emergency (ER) | payer OTHER ==
[~2021-08-01] VITALS: Ht 149.9 cm; Wt 49.9 kg
[2021-08-01 18:43] VITALS: BP 128/89
--- NOTE | 2021-08-01 18:48 | NUR ---
PT IN LOBBY
--- NOTE | 2021-08-01 18:51 | NUR ---
PT AMBULATED TO CHAIR B.
[2021-08-01] MEDS ORDERED: LORazepam 1 MG TAB PO ONE (19:20)
--- NOTE | 2021-08-01 19:20 | NUR ---
MEDICATED PER ERMDS ORDER, TOLERATED WELL
[2021-08-01 20:05] VITALS: BP 119/81
[2021-08-01] MEDS ORDERED: BACL10TA4 PO (20:05)
== END 2021-08-01 20:05 | disposition home or self-care (01) ==
LOC: MED 18:09
DX: M62.838 Other muscle spasm (principal); K21.9 Gastro-esophageal reflux disease without esophagitis; F12.90 Cannabis use, unspecified, uncomplicated; Z79.899 Other long term (current) drug therapy; Z88.6 Allergy status to analgesic agent
CPT/HCPCS: 99283

== ENCOUNTER 2021-08-05 12:17 | Emergency (ER) | payer OTHER ==
[~2021-08-05] VITALS: Ht 149.9 cm; Wt 49.9 kg
[2021-08-05 12:32] VITALS: BP 113/62
--- NOTE | 2021-08-05 12:43 | NUR ---
PATIENT AMBULATED TO BED 6.
--- NOTE | 2021-08-05 12:49 | NUR ---
EMT AT BEDSIDE FOR EKG.
--- NOTE | 2021-08-05 12:50 | NUR ---
25 YO FEMALE BIBS WITH C/O DIFFICULTY BREATHING, 8/10 LEFT CHEST PAIN, RUNNY NOSE X TODAY. PT GOT COVID VACCINE MODERNA 2ND DOSE YESTERDAY AND FEELS S/S ARE RELATED TO VACCINE. CHEST PAIN 8/10 DESCRIBES TIGHTNESS AND CONSTANT. EKG DONE: SINUS TACHYCARDIA 104. PATIENT A&OX4, VS STABLE WITH HR OF 94 AT THIS TIME. RR EVEN AND UNLABORED. LUNG SOUNDS CLEAR THROUGHOUT. PLACED ON MONITOR FOR CONT OBSERVATION. PMH: SEIZURE, ANXIETY ALLERGY IBUPROFEN
--- NOTE | 2021-08-05 12:51 | NUR ---
DR WALKER AT BEDSIDE EVALUATING PATIENT
[2021-08-05] MEDS ORDERED: NACL 0.9% 1,000 ML IV ONE (13:00)
--- NOTE | 2021-08-05 13:15 | NUR ---
PATIENT TAKEN TO XRAY VIA W/C
[2021-08-05] MEDS ORDERED: diphenhydrAMINE 50 MG/ML VIAL IVP ONE (13:30)
[2021-08-05] MEDS ORDERED: HALOPERIDOL IM 5 MG/ML VIAL IM ONE (13:30)
[2021-08-05 13:51] LABS: BASOPHILS % (AUTO) 0.4 % (0.0-2.0); EOSINOPHILS % (AUTO) 0.1 % (0.0-4.0); HEMATOCRIT 35.3 % (36-48); HEMOGLOBIN 12.1 g/dL (12.0-16.0); LYMPHOCYTES # (AUTO) 0.4 K/uL (2.5-16.5); LYMPHOCYTES % (AUTO) 5.2 % (20.5-51.1); MEAN CORPUSCULAR HEMOGLOBIN 31 pg (27-31); MEAN CORPUSCULAR HGB CONC 34 g/dL (33-37); MEAN CORPUSCULAR VOLUME 90.8 fL (80-94); MONOCYTES # (AUTO) 0.4 K/uL (0.8-1.0); MONOCYTES % (AUTO) 4.9 % (1.7-9.3); NEUTROPHILS # (AUTO) 6.8 K/uL (1.8-7.7); NEUTROPHILS % (AUTO) 89.4 % (42.2-75.2); PLATELET COUNT (AUTO) 168 K/uL (140-450); RED BLOOD CELL COUNT(AUTO) 3.89 MIL/uL (4.20-5.40); RED CELL DISTRIBUTION WIDTH 13.2 % (11.6-13.7); WHITE BLOOD COUNT (AUTO) 7.6 K/uL (4.8-10.8)
[2021-08-05 14:06] LABS: ANION GAP 14.9 (8-16); CARBON DIOXIDE 22.6 mmol/L (21-32); CREATININE 0.5 mg/dL (0.6-1.3); POTASSIUM 3.5 mmol/L (3.5-5.1)
[2021-08-05] MEDS ORDERED: ACET-10509 PO (14:59)
[2021-08-05] MEDS ORDERED: ONDA4TAB PO (14:59)
[2021-08-05 15:42] VITALS: BP 123/84
--- NOTE | 2021-08-05 15:42 | NUR ---
Patient discharged with v/s stable. Written and verbal after care instructions given and explained. Patient alert, oriented and verbalized understanding of instructions. Ambulatory with BOYFRIEND to car. All questions addressed prior to discharge. ID band removed. Patient advised to follow up with PMD. Rx of ACETAMINOPHEN, ONDANSETRON given. Patient educated on indication of medication including possible reaction and side effects. Opportunity to ask questions provided and answered.
[2021-08-06] MEDS ORDERED: BENZ-203 PO (11:18)
== END 2021-08-05 15:42 | disposition home or self-care (01) ==
LOC: MED 12:17
DX: R07.9 Chest pain, unspecified (principal); F41.0 Panic disorder [episodic paroxysmal anxiety]; K21.9 Gastro-esophageal reflux disease without esophagitis; Z88.6 Allergy status to analgesic agent; Z79.899 Other long term (current) drug therapy
CPT/HCPCS: 36415; 71045; 80048; 81002; 81025; 82550; 84484; 85025; 93005; 96361; 96372; 96374; 99285; J1200; J1630; J7030

== ENCOUNTER 2021-08-06 08:54 | Emergency (ER) | payer OTHER ==
[~2021-08-06] VITALS: Ht 149.9 cm; Wt 45.8 kg
[~2021-08-06 08:54] MED LIST changes: +ACET-10509 PO; +ONDA4TAB PO
[2021-08-06 08:58] VITALS: BP 109/77
--- NOTE | 2021-08-06 09:05 | NUR ---
PT AMBULATED TO BED 12
--- NOTE | 2021-08-06 09:09 | NUR ---
SAID AT BEDSIDE EVALUATING PT
--- NOTE | 2021-08-06 09:10 | NUR ---
25 Y/O FEMALE BIB BOYFRIEND WITH C/O MUSCLE SPASMS THROUGHOUT BODY SINCE THIS MORNING AFTER TAKING ANXIETY MEDICATION, ATARAX. PT STATES SHE HAS HX OF SPONTANEOUS MUSCLE SPASMS IN THE PAST. PT IS DIAPHORETIC AND APPEARS VERY ANXIOUS. PT IS EXPERIENCING ACTIVE MUSCLE SPAMS/TREMORS. PT DENIES CHEST PAIN, SOB, N/V. PT WAS SEEN HERE YESTERDAY FOR HEADACHE AND WAS GIVEN HALDOL. PT REPORTS THIS HAS HAPPENED BEFORE. PT C/O 9/10 FULL BODY PAIN. PT DENIES DRUG USE. PT A/O X4. PT PLACED ON DRY MOP MAKER. MEDHX: ANXIETY ALLERGIES: IBUPROFEN
[2021-08-06] MEDS ORDERED: NACL 0.9% 1,000 ML IV ONE (09:15)
[2021-08-06] MEDS ORDERED: LORazepam 2 MG/ML VIAL IVP ONE (09:15)
[2021-08-06] MEDS ORDERED: BENZTROPINE 2 MG/2 ML AMP IVP ONE (09:15)
[2021-08-06] MEDS ORDERED: diphenhydrAMINE 50 MG/ML VIAL IVP ONE (09:15)
--- NOTE | 2021-08-06 10:15 | NUR ---
PT RESTING IN BED WITH EVEN AND UNLABORED RESPIRATIONS. PT NO LONGER HAS TREMORS. PT ON SUPERVISOR COMPONENT ASSEMBLER, VSS. WILL CONTINUE TO MONITOR
--- NOTE | 2021-08-06 10:32 | NUR ---
PT AMBULATED TO RESTROOM FOR URINE SAMPLE
[2021-08-06 11:11] LABS: BARBITURATE, URINE NEGATIVE ng/ml (NEG <=200); BENZODIAZEPINE, URINE POSITIVE ng/mL (NEG <=200); CANNABINOID, URINE POSITIVE ng/mL (NEG <=50); COCAINE, URINE POSITIVE ng/mL (NEG <=300); OPIATE, URINE NEGATIVE ng/mL (NEG <=2000); PHENCYCLIDINE SCREEN,URINE NEGATIVE ng/mL (NEG <=25)
[2021-08-06] MEDS ORDERED: BENZ-203 PO (11:18)
[2021-08-06 11:28] VITALS: BP 118/70
--- NOTE | 2021-08-06 11:28 | NUR ---
Patient discharged with v/s stable. 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 Patient alert, oriented and verbalized understanding of instructions. Ambulatory with steady gait. All questions addressed prior to discharge. ID band removed. Patient advised to follow up with PMD. Rx of COGENTIN given. Patient educated on indication of medication including possible reaction and side effects. Opportunity to ask questions provided and answered.
== END 2021-08-06 11:28 | disposition home or self-care (01) ==
LOC: MED 08:54
DX: G24.9 Dystonia, unspecified (principal); F12.90 Cannabis use, unspecified, uncomplicated; F14.90 Cocaine use, unspecified, uncomplicated; F41.9 Anxiety disorder, unspecified; K21.9 Gastro-esophageal reflux disease without esophagitis; Z88.6 Allergy status to analgesic agent; Z79.899 Other long term (current) drug therapy
CPT/HCPCS: 80305; 81025; 96361; 96374; 96375; 99284; J0515; J1200; J2060; J7030

== ENCOUNTER 2021-08-21 07:38 | Emergency (ER) | payer OTHER ==
[~2021-08-21] VITALS: Ht 149.9 cm; Wt 49.9 kg
[~2021-08-21 07:38] MED LIST changes: +BENZ-315 PO; +ONDA-188 PO; -ONDA-24 PO
[2021-08-21 07:52] VITALS: BP 105/68
--- NOTE | 2021-08-21 07:56 | NUR ---
PATIENT AMBULATED TO BED 12.
--- NOTE | 2021-08-21 08:01 | NUR ---
25 Y/O FEMALE C/O N/V/D AND ABDOMINAL PAIN XLAST NIGHT. PT REPORTS THAT SHE WAS HOMELESS FOR OVER A MONTH AND RECENTLY MOVED BACK IN WITH HER MOTHER AND NOW IS "OVER EATING" AND "EATING TOO MUCH" WHICH IS CAUSING HER TO BLOAT/PAIN. PT REPORTS SMOKING MARIJUANA XLAST NIGHT AND USING COCAINE X3 WEEKS AGO. PT REPORTS FEELING ANXIOUS. PT DENIES TAKING ANYTHING FOR ANXIETY BECAUSE SHE RAN OUT OF MEDICATION AND IS NOT ABLE TO SEE PCP. PT A/O X4 WITH EVEN AND UNLABORED RESPIRATIONS. PMH: SEIZURE, ANXIETY, GERD ALLERGIES:IBUPROFEN
--- NOTE | 2021-08-21 08:05 | NUR ---
DR CORTEZ AT BEDSIDE EVALUATING PT
--- NOTE | 2021-08-21 08:10 | NUR ---
PT IS NOW C/O L RING FINGER PAIN XYESTERDAY. PT STATES THAT SHE SLAMMED IT WHILE PLAYING WITH HER DAUGHTER YESTERDAY. NO SWELLING OR OBVIOUS DEFORMITY NOTED. PT STATES SHE IS NOT ABLE TO BEND FINGER. DR CORTEZ MADE AWARE
[2021-08-21] MEDS ORDERED: ONDANSETRON 4 MG/2 ML VIAL IVP ONE (08:15)
[2021-08-21] MEDS ORDERED: diphenhydrAMINE 50 MG/ML VIAL IVP ONE (08:15)
[2021-08-21] MEDS ORDERED: NACL 0.9% 1,000 ML IV ONE (08:15)
[2021-08-21] MEDS ORDERED: KETOROLAC 30 MG/ML VIAL IVP ONE (08:15)
[2021-08-21] MEDS ORDERED: HALOPERIDOL IM 5 MG/ML VIAL IVP ONE (08:15)
--- NOTE | 2021-08-21 08:18 | NUR ---
URINE SAMPLE COLLECTED AND WALKED TO LAB, HANDED TO CIRCULAR TANK COOPER
[2021-08-21 08:52] LABS: BASOPHILS % (AUTO) 0.4 % (0.0-2.0); EOSINOPHILS % (AUTO) 0.5 % (0.0-4.0); HEMATOCRIT 36.5 % (36-48); HEMOGLOBIN 12.3 g/dL (12.0-16.0); LYMPHOCYTES % (AUTO) 12.6 % (20.5-51.1); MEAN CORPUSCULAR HEMOGLOBIN 31 pg (27-31); MEAN CORPUSCULAR HGB CONC 34 g/dL (33-37); MEAN CORPUSCULAR VOLUME 91.7 fL (80-94); MONOCYTES # (AUTO) 0.4 K/uL (0.8-1.0); MONOCYTES % (AUTO) 4.3 % (1.7-9.3); NEUTROPHILS # (AUTO) 6.7 K/uL (1.8-7.7); NEUTROPHILS % (AUTO) 82.2 % (42.2-75.2); PLATELET COUNT (AUTO) 266 K/uL (140-450); RED BLOOD CELL COUNT(AUTO) 3.98 MIL/uL (4.20-5.40); RED CELL DISTRIBUTION WIDTH 13.2 % (11.6-13.7); WHITE BLOOD COUNT (AUTO) 8.1 K/uL (4.8-10.8)
[2021-08-21] MEDS ORDERED: LORazepam 2 MG/ML VIAL IVP ONE (09:00)
[2021-08-21 09:01] LABS: BARBITURATE, URINE NEGATIVE ng/ml (NEG <=200); BENZODIAZEPINE, URINE NEGATIVE ng/mL (NEG <=200); CANNABINOID, URINE POSITIVE ng/mL (NEG <=50); COCAINE, URINE NEGATIVE ng/mL (NEG <=300); OPIATE, URINE NEGATIVE ng/mL (NEG <=2000); PHENCYCLIDINE SCREEN,URINE NEGATIVE ng/mL (NEG <=25)
[2021-08-21 09:10] LABS: ALBUMIN 4.2 g/dL (3.4-5.0); ANION GAP 17.9 (8-16); CARBON DIOXIDE 23.9 mmol/L (21-32); CREATININE 0.5 mg/dL (0.6-1.3); POTASSIUM 3.8 mmol/L (3.5-5.1); TOTAL BILIRUBIN 0.4 mg/dL (0.0-1.0)
--- NOTE | 2021-08-21 09:50 | NUR ---
Metal finger splint placed to left ring finger.
[2021-08-21] MEDS ORDERED: METO-486 PO (10:11)
[2021-08-21] MEDS ORDERED: ACET-10509 PO (10:11)
[2021-08-21] MEDS ORDERED: IBUP-1842 PO (10:11)
[2021-08-21] MEDS ORDERED: ONDA4TAB PO (10:11)
[2021-08-21 10:55] VITALS: BP 119/60
--- NOTE | 2021-08-21 10:55 | NUR ---
Patient discharged with v/s stable. 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 Patient alert, oriented and verbalized understanding of instructions. Ambulatory with steady gait. All questions addressed prior to discharge. ID band removed. Patient advised to follow up with PMD. Rx of TYLENOL, MOTRIN, REGLAN, AND ZOFRAN given. Patient educated on indication of medication including possible reaction and side effects. Opportunity to ask questions provided and answered.
== END 2021-08-21 10:55 | disposition home or self-care (01) ==
LOC: MED 07:38
DX: S69.92XA Unspecified injury of left wrist, hand and finger(s), initial encounter (principal); R11.2 Nausea with vomiting, unspecified; F41.9 Anxiety disorder, unspecified; F12.90 Cannabis use, unspecified, uncomplicated; F14.90 Cocaine use, unspecified, uncomplicated; Z79.899 Other long term (current) drug therapy; X58.XXXA Exposure to other specified factors, initial encounter; Y93.89 Activity, other specified; Y92.89 Other specified places as the place of occurrence of the external cause; Y99.8 Other external cause status
CPT/HCPCS: 36415; 73140; 80053; 80305; 81025; 83690; 85025; 96361; 96374; 96375; 99284; J1885; J2060; J2405; J7030; Q0092; J1200; J1630

== ENCOUNTER 2021-08-22 10:21 | Emergency (ER) | payer OTHER ==
[~2021-08-22] VITALS: Ht 149.9 cm; Wt 48.1 kg
[~2021-08-22 10:21] MED LIST changes: +IBUP-1842 PO; +METO-486 PO
--- NOTE | 2021-08-22 11:26 | NUR ---
DR ADAMSON EVALUATING PT IN CHAIR A AT THIS TIME
[2021-08-22] MEDS ORDERED: diphenhydrAMINE 50 MG CAP PO ONE (11:30)
--- NOTE | 2021-08-22 12:35 | NUR ---
Patient discharged with v/s stable. Written and verbal after care instructions given and explained. Patient alert, oriented and verbalized understanding of instructions. Ambulatory with steady gait. All questions addressed prior to discharge. ID band removed. Patient advised to follow up with PMD. Opportunity to ask questions provided and answered.
== END 2021-08-22 12:35 | disposition home or self-care (01) ==
LOC: MED 10:21
DX: F41.1 Generalized anxiety disorder (principal); Z88.6 Allergy status to analgesic agent; Z79.899 Other long term (current) drug therapy
CPT/HCPCS: 99282; Q0163

== ENCOUNTER 2021-08-26 00:45 | Emergency (ER) | payer OTHER ==
--- NOTE | 2021-08-26 01:08 | NUR ---
Called pt name x3 no response at this time
--- NOTE | 2021-08-26 02:11 | NUR ---
PATIENT LEFT WITHOUT BEING SEEN BY DR. GREEN. NO FURTHER CARE PROVIDED FOR PATIENT.
== END 2021-08-26 01:08 | disposition left against medical advice (07) ==
LOC: MED 00:45
DX: Z53.21 Procedure and treatment not carried out due to patient leaving prior to being seen by health care provider (principal)

== ENCOUNTER 2021-09-25 07:28 | Emergency (ER) | payer OTHER ==
[~2021-09-25] VITALS: Ht 149.9 cm; Wt 54.4 kg
[2021-09-25 07:34] VITALS: BP 121/62
--- NOTE | 2021-09-25 07:38 | NUR ---
PT TAKEN TO ER BED 12.
[2021-09-25] MEDS ORDERED: LORazepam 2 MG/ML VIAL IVP ONE (07:40)
[2021-09-25] MEDS ORDERED: PROCHLORPERAZINE 10 MG/2 ML VIAL IVP ONE (07:40)
[2021-09-25] MEDS ORDERED: NACL 0.9% 1,000 ML IV ONE (07:40)
[2021-09-25] MEDS ORDERED: PANTOPRAZOLE 40 MG INJ VIAL IVP ONE (07:40)
--- NOTE | 2021-09-25 07:50 | NUR ---
25 Y/O FEMALE PATIENT PRESENTS TO ED WITH ABD PAIN X1 DAY. BIB BOYFRIEND. PT STATES SHE ATE SOME FOOD LAST NIGHT AND STARTED TO HAVE PAIN BEHIND HER UMBILICUS, SHARP, NON RADIATING. DENIES DIARRHEA OR BLOOD IN VOMIT OR STOOL; SKIN IS PINK/WARM/DRY; AAOX4 WITH EVEN AND STEADY GAIT; LUNGS CLEAR BL; HR EVEN AND REGULAR; PT DENIES ANY FEVER, CP, SOB, OR COUGH AT THIS TIME; PATIENT STATES PAIN OF 8/10 AT THIS TIME; VSS; PATIENT POSITIONED FOR COMFORT WITH BLANKETS; HOB ELEVATED; BEDRAILS UP X2; BED DOWN. ER MD MADE AWARE OF PT STATUS. HX: SZR, ETOH, COCAINE USE, OVARIAN CYST ALLERGY TO IBUPROFEN MED: GABAPENTIN.
[2021-09-25] MEDS ORDERED: FAMO-92 PO (09:01)
[2021-09-25] MEDS ORDERED: ONDA-188 SL (09:01)
[2021-09-25 10:03] VITALS: BP 111/84
--- NOTE | 2021-09-25 10:03 | NUR ---
Patient discharged with v/s stable. Written and verbal after care instructions given and explained. Patient alert, oriented and verbalized understanding of instructions. Ambulatory with steady gait. All questions addressed prior to discharge. ID band removed. Patient advised to follow up with PMD. Rx of Famotadine and Ondansetron given. Patient educated on indication of medication including possible reaction and side effects. Opportunity to ask questions provided and answered. pt had calm demaeano, breathing unlabored with equal chest rise and fall, pt ambulated w/o assistance.
[2021-09-25] MEDS ORDERED: ACET-8386 PO (21:08)
[2021-09-26] MEDS ORDERED: ONDA-188 SL (09:08)
[2021-09-26] MEDS ORDERED: METO-486 PO (09:08)
== END 2021-09-25 10:03 | disposition home or self-care (01) ==
LOC: MED 07:28
DX: K29.70 Gastritis, unspecified, without bleeding (principal); R11.2 Nausea with vomiting, unspecified; F12.90 Cannabis use, unspecified, uncomplicated; F14.90 Cocaine use, unspecified, uncomplicated; F41.9 Anxiety disorder, unspecified; Z79.899 Other long term (current) drug therapy
CPT/HCPCS: 81002; 81025; 96374; 96375; 99284; C9113; J0780; J2060

== ENCOUNTER 2021-09-25 19:00 | Emergency (ER) | payer OTHER ==
[~2021-09-25] VITALS: Ht 149.9 cm; Wt 54.4 kg
[~2021-09-25 19:00] MED LIST changes: +FAMO-92 PO; +ONDA-188 SL
[2021-09-25 19:20] VITALS: BP 98/71
[2021-09-25] MEDS ORDERED: NACL 0.9% 1,000 ML IV SCH (19:30)
[2021-09-25] MEDS ORDERED: ONDANSETRON 4 MG/2 ML VIAL IVP ONE (19:30)
--- NOTE | 2021-09-25 19:30 | NUR ---
PT C/O MUSCLE CRAMPING, DENIES V/N/D. PT WAS HERE IN ER EARLIER TODAY FOR VOMITING AND ABDOMINAL PAIN. PT STATES SHE IS CRAMPING IN KNEES AND TONGUE AND IS 7/10. MEDICAL HX:SEIZURES AND ANXIETY ALLERGIES: IBUPROFEN NO MEDICATIONS.
[2021-09-25 19:52] LABS: BASOPHILS % (AUTO) 0.1 % (0.0-2.0); HEMATOCRIT 35.4 % (36-48); HEMOGLOBIN 12.1 g/dL (12.0-16.0); LYMPHOCYTES # (AUTO) 0.5 K/uL (2.5-16.5); LYMPHOCYTES % (AUTO) 5.5 % (20.5-51.1); MEAN CORPUSCULAR HEMOGLOBIN 30 pg (27-31); MEAN CORPUSCULAR HGB CONC 34 g/dL (33-37); MEAN CORPUSCULAR VOLUME 88.1 fL (80-94); MONOCYTES # (AUTO) 0.4 K/uL (0.8-1.0); MONOCYTES % (AUTO) 3.7 % (1.7-9.3); NEUTROPHILS # (AUTO) 8.9 K/uL (1.8-7.7); NEUTROPHILS % (AUTO) 90.7 % (42.2-75.2); PLATELET COUNT (AUTO) 241 K/uL (140-450); RED BLOOD CELL COUNT(AUTO) 4.01 MIL/uL (4.20-5.40); RED CELL DISTRIBUTION WIDTH 13.8 % (11.6-13.7); WHITE BLOOD COUNT (AUTO) 9.8 K/uL (4.8-10.8)
[2021-09-25 20:01] LABS: ALBUMIN 4.4 g/dL (3.4-5.0); ANION GAP 16.5 (8-16); CARBON DIOXIDE 23.2 mmol/L (21-32); CREATININE 0.5 mg/dL (0.6-1.3); POTASSIUM 3.7 mmol/L (3.5-5.1); TOTAL BILIRUBIN 0.7 mg/dL (0.0-1.0)
[2021-09-25] MEDS ORDERED: MORPHINE SULFATE 4 MG/ML SYR IVP ONE (20:15)
--- NOTE | 2021-09-25 20:45 | NUR ---
Patient appears to be resting comfortably in bed. Vital Signs within normal limits. Respirations even and unlabored. BOTH BED RAILS DOWN AND BED AT LOWEST POSITION.
[2021-09-25] MEDS ORDERED: ACET-8386 PO (21:08)
[2021-09-25 21:27] VITALS: BP 101/45
--- NOTE | 2021-09-25 21:27 | NUR ---
Patient discharged with v/s stable. Written and verbal after care instructions given and explained. Patient alert, oriented and verbalized understanding of instructions. Ambulatory with steady gait. All questions addressed prior to discharge. ID band removed. Patient advised to follow up with PMD. Rx of HYDROCODONE/ACETAMINOPHEN given. Patient educated on indication of medication including possible reaction and side effects. Opportunity to ask questions provided and answered.
[2021-09-26] MEDS ORDERED: METO-486 PO (09:08)
[2021-09-26] MEDS ORDERED: ONDA-188 SL (09:08)
== END 2021-09-25 21:27 | disposition home or self-care (01) ==
LOC: MED 19:00
DX: M25.561 Pain in right knee (principal); M25.562 Pain in left knee; R11.2 Nausea with vomiting, unspecified; F41.9 Anxiety disorder, unspecified; Z88.6 Allergy status to analgesic agent; Z79.899 Other long term (current) drug therapy; Z98.890 Other specified postprocedural states
CPT/HCPCS: 36415; 80053; 81002; 81025; 83690; 85025; 96361; 96374; 96375; 99285; J2270; J2405; J7030

== ENCOUNTER 2021-09-26 07:13 | Emergency (ER) | payer OTHER ==
[~2021-09-26] VITALS: Ht 149.9 cm; Wt 49.4 kg
[~2021-09-26 07:13] MED LIST changes: -ACET-10509 PO; +ACET-8386 PO; -BACL10TA4 PO; -BENZ-315 PO; -FLUO0.0210 TP; -METO-486 PO; -ONDA-188 PO; -ONDA4TAB PO; -ONDA8TAB87 PO
[2021-09-26 07:20] VITALS: BP 114/81
--- NOTE | 2021-09-26 07:28 | NUR ---
PT AMBULATED WITH EVEN AND STEADY GAIT TO BED 3
--- NOTE | 2021-09-26 07:40 | NUR ---
25 Y/O F BIB SELF FROM HOME, PATIENT PRESENTS TO ED WITH BILATERAL LOWER QUADRANT ABD PAIN THAT STARTED THIS MORNING WITH N&V, 2 EMESIS EPISODES. PT STATES SHE HAS NOT TAKEN ANYTHING FOR PAIN RELIEF. DENIES DIARRHEA, CONSTIPATION, DYSURIA, HEMATURIA; SKIN IS PINK/WARM/DRY; AAOX4 WITH EVEN AND STEADY GAIT; LUNGS CLEAR BL; HR EVEN AND REGULAR; PT DENIES ANY FEVER, CP, SOB, OR COUGH AT THIS TIME; PATIENT STATES PAIN OF 10/10 AT THIS TIME; VSS; PATIENT POSITIONED FOR COMFORT; HOB ELEVATED; BEDRAILS UP X2; BED DOWN. ER MD MADE AWARE OF PT STATUS. ABD IS SOFT/TENDER WITH PALPATION/FLAT. PMH: SEIZURES, ANXIETY NKA MED: GABAPENTIN
[2021-09-26] MEDS ORDERED: ONDANSETRON 4 MG ODT PO ONE (08:00)
[2021-09-26] MEDS ORDERED: HALOPERIDOL IM 5 MG/ML VIAL IM ONE (08:00)
[2021-09-26] MEDS ORDERED: METOCLOPRAMIDE 10 MG TAB PO ONE (08:00)
[2021-09-26] MEDS ORDERED: LORazepam 2 MG/ML VIAL IM ONE (08:00)
[2021-09-26] MEDS ORDERED: ONDA-188 SL (09:08)
[2021-09-26] MEDS ORDERED: METO-486 PO (09:08)
[2021-09-26 09:16] VITALS: BP 114/81
--- NOTE | 2021-09-26 09:16 | NUR ---
PT UNABLE TO PROVIDE ENOUGH URINE AT THIS TIME
--- NOTE | 2021-09-26 09:16 | NUR ---
Patient discharged with v/s stable. Written and verbal after care instructions given and explained. Patient alert, oriented and verbalized understanding of instructions. Ambulatory with steady gait. All questions addressed prior to discharge. ID band removed. Patient advised to follow up with PMD. Rx of BLAKE DE DIOS (SENT) given. Patient educated on indication of medication including possible reaction and side effects. Opportunity to ask questions provided and answered.
[2021-09-26 13:04] LABS: BARBITURATE, URINE NEGATIVE ng/ml (NEG <=200); BENZODIAZEPINE, URINE POSITIVE ng/mL (NEG <=200); CANNABINOID, URINE POSITIVE ng/mL (NEG <=50); OPIATE, URINE POSITIVE ng/mL (NEG <=2000)
[2021-09-26 13:05] LABS: COCAINE, URINE NEGATIVE ng/mL (NEG <=300); PHENCYCLIDINE SCREEN,URINE NEGATIVE ng/mL (NEG <=25)
[2021-09-27] MEDS ORDERED: COG1 PO (07:57)
[2021-09-27] MEDS ORDERED: PHE25S RC (07:57)
== END 2021-09-26 09:16 | disposition home or self-care (01) ==
LOC: MED 07:13
DX: F12.188 Cannabis abuse with other cannabis-induced disorder (principal); F41.9 Anxiety disorder, unspecified; F17.200 Nicotine dependence, unspecified, uncomplicated; Z86.69 Personal history of other diseases of the nervous system and sense organs; Z79.891 Long term (current) use of opiate analgesic; Z79.1 Long term (current) use of non-steroidal anti-inflammatories (NSAID); Z79.899 Other long term (current) drug therapy
CPT/HCPCS: 80305; 81002; 81025; 96372; 99284; J1630; J2060; J8597; Q0162

== ENCOUNTER 2021-09-27 06:14 | Emergency (ER) | payer OTHER ==
[~2021-09-27] VITALS: Ht 149.9 cm; Wt 54.0 kg
[~2021-09-27 06:14] MED LIST changes: +METO-486 PO
[2021-09-27 06:19] VITALS: BP 117/86
--- NOTE | 2021-09-27 06:34 | NUR ---
25 Y/O F BIB SELF WITH C/O VOMITING SINCE 4 AM AND NAUSEA. PT HAS ABOUT 100 CC OF VOMIT IN EMESIS BAG. PT HAS BEEN HAVING MUSCLE SPASMS SINCE THIS MORNING WELL. PT HAS A HX OF ANXIETY AND DRUG (MARIJUANA) USE. PT DENIES FEVER/COUGH/SOB/CHEST PAIN. PT IS AX0X4. PT IS VERY ANXIOUS AND APPEARS TO BE TREMBLING .
[2021-09-27] MEDS ORDERED: BENZTROPINE 2 MG/2 ML AMP IVP ONE (06:55)
[2021-09-27] MEDS ORDERED: NACL 0.9% 1,500 ML IV ONE (06:55)
[2021-09-27] MEDS ORDERED: ONDANSETRON 4 MG/2 ML VIAL IVP ONE (06:55)
[2021-09-27] MEDS ORDERED: LORazepam 2 MG/ML VIAL IVP ONE (06:55)
[2021-09-27 07:28] LABS: ANION GAP 23.8 (8-16); CARBON DIOXIDE 15.3 mmol/L (21-32); CREATININE 0.6 mg/dL (0.6-1.3); POTASSIUM 4.1 mmol/L (3.5-5.1)
--- NOTE | 2021-09-27 07:50 | NUR ---
Pt report given to ASHWIN. Transfer of care at this time.
--- NOTE | 2021-09-27 07:51 | NUR ---
RECEIVED REPORT FROM DICTATING TRANSCRIBING MACHINE SERVICER NURSE. PT IS A&O X 4. PT WAS IN NO SIGN OF DISTRESS. ALL SAFETY PRECAUTIONS ARE IN PLACE. WILL CONTINUE CARE.
[2021-09-27] MEDS ORDERED: PHE25S RC (07:57)
[2021-09-27] MEDS ORDERED: COG1 PO (07:57)
--- NOTE | 2021-09-27 08:42 | NUR ---
Patient discharged with v/s stable. Written and verbal after care instructions ABOUT CYCLIC VOMITING SYNDROME AND DYSTONIC REACTIONS given and explained. Patient alert, oriented and verbalized understanding of instructions. Ambulatory with steady gait. All questions addressed prior to discharge. ID band removed. Patient advised to follow up with PMD. Rx of BENZTROPINE AND PROMETHAZINE given. Patient educated on indication of medication including possible reaction and side effects. Opportunity to ask questions provided and answered.
== END 2021-09-27 08:42 | disposition home or self-care (01) ==
LOC: MED 06:14
DX: G24.09 Other drug induced dystonia (principal); T43.4X5A Adverse effect of butyrophenone and thiothixene neuroleptics, initial encounter; R11.2 Nausea with vomiting, unspecified; M62.838 Other muscle spasm; Z88.6 Allergy status to analgesic agent; Z79.899 Other long term (current) drug therapy; Y92.89 Other specified places as the place of occurrence of the external cause
CPT/HCPCS: 36415; 80048; 96361; 96374; 96375; 99284; J0515; J2060; J2405; J7030

== ENCOUNTER 2021-09-30 06:40 | Emergency (ER) | payer OTHER ==
[~2021-09-30] VITALS: Ht 149.9 cm; Wt 54.0 kg
[~2021-09-30 06:40] MED LIST changes: +COG1 PO; +PHE25S RC
[2021-09-30 06:44] VITALS: BP 116/80
--- NOTE | 2021-09-30 06:50 | NUR ---
AMBULATED TO BR FOR UA
[2021-09-30] MEDS ORDERED: NACL 0.9% 1,000 ML IV ONE (06:55)
[2021-09-30] MEDS ORDERED: ONDANSETRON 4 MG/2 ML VIAL IVP ONE (06:55)
--- NOTE | 2021-09-30 06:57 | NUR ---
Dr. Zaidi examining patient.
--- NOTE | 2021-09-30 06:58 | NUR ---
25 YO/F BIB SELF W C/O NAUSEA X1 DAY, + VOMITING SINCE THIS MORNING X7 EPISODES YELLOW/WHITE LIQUID, +DIZZYNESS AND LOWER BACK PAIN 8/10 SHARP WHICH PT RELATES TO VOMITING. PT DENIES ANY FEVER/CHILLS, URINE OR BOWEL PROBLEMS. PT DENIES ANY BLOOD IN VOMIT. PT REPORTS HX OF MARIGUANA USE CAUSING SAME SYMPTOMS BUT LAST USE WAS X1 WEEK AGO (GUMMY). PT DENIES OTHER DRUG USE. PT TOOK .5MG OF ZOFRAN THIS MORNING W/O RELIEF OF SYMPTOMS. PT SITTING IN BED LOCKED IN LOWEST POSITION W X2 SIDERAILS UP FOR PT SAFETY. ERMD ASSISSING PT AT THIS TIME. NAD NOTED, WILL CONTINUE TO MONITOR. VSS PMH:SEIZURES ALLERGIES: IBUPROFEN
[2021-09-30] MEDS ORDERED: FAMOTIDINE 20 MG/2 ML VIAL IVP ONE (07:10)
[2021-09-30] MEDS ORDERED: METOCLOPRAMIDE 10 MG/2 ML INJ VIAL IVP ONE (07:10)
[2021-09-30] MEDS ORDERED: ALUMINUM HYD/MAG/SIMETHICONE 30 ML, DICYCLOMINE HCL LIQUID 20 MG, LIDOCAINE VISCOUS 2% ... PO ONE ×3 (07:10)
--- NOTE | 2021-09-30 07:10 | NUR ---
BLOOD WORK COLLECTED AND HANDED TO BRENDA FROM LAB.
--- NOTE | 2021-09-30 07:17 | NUR ---
Pt report given to RUPERT LEONARD. Transfer of care at this time.
--- NOTE | 2021-09-30 07:20 | NUR ---
RECEIVED REPORT FROM RUPERT SALAZAR. ASSUMED CARE AT THIS TIME.
[2021-09-30] MEDS ORDERED: ALUMINUM HYD/MAG/SIMETHICONE 30 ML UDC ONE (07:21)
[2021-09-30] MEDS ORDERED: DICYCLOMINE HCL LIQUID 10 MG/5 ML UDC ONE (07:21)
[2021-09-30 07:33] LABS: BASOPHILS % (AUTO) 0.5 % (0.0-2.0); EOSINOPHILS # (AUTO) 0.1 K/uL (0-0.4); EOSINOPHILS % (AUTO) 1.4 % (0.0-4.0); HEMATOCRIT 35.1 % (36-48); HEMOGLOBIN 11.9 g/dL (12.0-16.0); LYMPHOCYTES # (AUTO) 1.2 K/uL (2.5-16.5); MEAN CORPUSCULAR HEMOGLOBIN 30 pg (27-31); MEAN CORPUSCULAR HGB CONC 34 g/dL (33-37); MEAN CORPUSCULAR VOLUME 88.3 fL (80-94); MONOCYTES # (AUTO) 0.3 K/uL (0.8-1.0); MONOCYTES % (AUTO) 6.4 % (1.7-9.3); NEUTROPHILS # (AUTO) 2.6 K/uL (1.8-7.7); NEUTROPHILS % (AUTO) 62.7 % (42.2-75.2); PLATELET COUNT (AUTO) 224 K/uL (140-450); RED BLOOD CELL COUNT(AUTO) 3.98 MIL/uL (4.20-5.40); RED CELL DISTRIBUTION WIDTH 14.2 % (11.6-13.7); WHITE BLOOD COUNT (AUTO) 4.2 K/uL (4.8-10.8)
[2021-09-30] MEDS ORDERED: ONDA-188 PO (07:36)
[2021-09-30] MEDS ORDERED: FAMO-90 PO (07:37)
[2021-09-30] MEDS ORDERED: BEN10 PO (07:38)
[2021-09-30 07:58] LABS: ALBUMIN 4.6 g/dL (3.4-5.0); ANION GAP 13.5 (8-16); CARBON DIOXIDE 26.8 mmol/L (21-32); CREATININE 0.5 mg/dL (0.6-1.3); POTASSIUM 3.3 mmol/L (3.5-5.1); TOTAL BILIRUBIN 0.5 mg/dL (0.0-1.0)
[2021-09-30] MEDS ORDERED: KETOROLAC 30 MG/ML VIAL IVP ONE (08:00)
--- NOTE | 2021-09-30 08:00 | NUR ---
PATIENT APPEARS TO BE RESTING IN BED, PLACED ON BEDSIDE MONITOR. ALL NEEDS MET AT THIS TIME.
[2021-09-30] MEDS ORDERED: PROMETHAZINE 25 MG/ML VIAL IM ONE (08:10)
[2021-09-30] MEDS ORDERED: MORPHINE SULFATE 2 MG/ML SYR IVP ONE (08:15)
[2021-09-30 09:31] VITALS: BP 104/60
--- NOTE | 2021-09-30 09:31 | NUR ---
Patient discharged with v/s stable. Written and verbal after care instructions ABOUT CYCLIC VOMITING SYDNROME given and explained. Patient alert, oriented and verbalized understanding of instructions. Ambulatory with steady gait. All questions addressed prior to discharge. ID band removed. Patient advised to follow up with PMD. Rx of BENTYL, PEPCID AND ZOFRAN given. Patient educated on indication of medication including possible reaction and side effects. Opportunity to ask questions provided and answered.
== END 2021-09-30 09:31 | disposition home or self-care (01) ==
LOC: MED 06:40
DX: R11.15 Cyclical vomiting syndrome unrelated to migraine (principal); E87.6 Hypokalemia; Z86.69 Personal history of other diseases of the nervous system and sense organs; Z79.899 Other long term (current) drug therapy; Z79.891 Long term (current) use of opiate analgesic; Z79.1 Long term (current) use of non-steroidal anti-inflammatories (NSAID); Z88.6 Allergy status to analgesic agent
CPT/HCPCS: 36415; 80053; 81002; 81025; 83690; 85025; 96361; 96372; 96374; 96375; 99284; J2270; J2405; J2550; J2765; J3490; J7030; J1885

== ENCOUNTER 2021-10-03 03:28 | Observation (INO) | payer OTHER ==
[~2021-10-03] VITALS: Ht 147.3 cm; Wt 54.0 kg
[~2021-10-03 03:28] MED LIST changes: +BEN10 PO; +FAMO-90 PO; +ONDA-188 PO
[2021-10-03 03:32] VITALS: BP 149/79
[2021-10-03] MEDS ORDERED: LORazepam 2 MG/ML VIAL IVP ONE (03:45)
[2021-10-03] MEDS ORDERED: diphenhydrAMINE 50 MG/ML VIAL IVP ONE (03:45)
[2021-10-03] MEDS ORDERED: NACL 0.9% 1,500 ML IV ONE (03:45)
[2021-10-03] MEDS ORDERED: HALOPERIDOL IM 5 MG/ML VIAL IVP ONE (03:45)
--- NOTE | 2021-10-03 04:09 | NUR ---
patient ambulated to the bathroom for urine collection and to have a bm
[2021-10-03 04:56] LABS: BASOPHILS % (AUTO) 0.2 % (0.0-2.0); EOSINOPHILS # (AUTO) 0.1 K/uL (0-0.4); EOSINOPHILS % (AUTO) 0.6 % (0.0-4.0); HEMATOCRIT 35.2 % (36-48); HEMOGLOBIN 11.7 g/dL (12.0-16.0); LYMPHOCYTES % (AUTO) 5.8 % (20.5-51.1); MEAN CORPUSCULAR HEMOGLOBIN 30 pg (27-31); MEAN CORPUSCULAR HGB CONC 33 g/dL (33-37); MEAN CORPUSCULAR VOLUME 89.5 fL (80-94); MONOCYTES # (AUTO) 0.7 K/uL (0.8-1.0); MONOCYTES % (AUTO) 4.2 % (1.7-9.3); NEUTROPHILS # (AUTO) 14.6 K/uL (1.8-7.7); NEUTROPHILS % (AUTO) 89.2 % (42.2-75.2); PLATELET COUNT (AUTO) 221 K/uL (140-450); RED BLOOD CELL COUNT(AUTO) 3.93 MIL/uL (4.20-5.40); RED CELL DISTRIBUTION WIDTH 13.9 % (11.6-13.7); WHITE BLOOD COUNT (AUTO) 16.3 K/uL (4.8-10.8)
[2021-10-03 05:09] LABS: ALBUMIN 4.7 g/dL (3.4-5.0); ANION GAP 15.2 (8-16); ASPARTATE AMINOTRANSFERASE 17 U/L (15-37); CARBON DIOXIDE 25.6 mmol/L (21-32); CHLORIDE 101 mmol/L (98-107); CREATININE 0.6 mg/dL (0.6-1.3); GFR ARICAN-AMERICAN 159 mL/min (>90); GLUCOSE 138 mg/dL (74-106); POTASSIUM 3.8 mmol/L (3.5-5.1); SODIUM SERUM 138 mmol/L (136-145); TOTAL BILIRUBIN 0.5 mg/dL (0.0-1.0); UREA NITROGEN, BLOOD 11 mg/dL (7-18)
--- NOTE | 2021-10-03 05:12 | NUR ---
patient dry heaving, and vomiting in the emesis bag even with medication ordered. ERMD made aware
[2021-10-03] MEDS ORDERED: METOCLOPRAMIDE 10 MG/2 ML INJ VIAL IVP ONE (05:20)
[2021-10-03] MEDS ORDERED: ACET-8386 PO (05:47)
[2021-10-03] MEDS ORDERED: ARIP5TAB8 PO (05:47)
[2021-10-03] MEDS ORDERED: GABA-636 PO (05:47)
[2021-10-03] MEDS ORDERED: ACETAMINOPHEN 325 MG TAB PO PRN (05:55)
--- NOTE | 2021-10-03 06:20 | NUR ---
patient ambulated to the bathroom
--- NOTE | 2021-10-03 06:23 | NUR ---
ASSISTED PT BACK TO [facility] FROM BATHROOM. HOOKED UP LEADS AND BP PULSE OX
--- NOTE | 2021-10-03 06:26 | NUR ---
paged MD Davila for medication orders-- will receive a call back.
[2021-10-03] MEDS: NACL 0.9% 1,000 ML IV SCH ×2 (06:51→15:55)
--- NOTE | 2021-10-03 06:58 | NUR ---
paged MD Davila but referral and information aide is now MD Cochran for medication orders-- will receive a call back.
--- NOTE | 2021-10-03 07:14 | NUR ---
MD Cochran called back for patient-- received orders for Morphine 2mg Q4hr PRN for severe pain
--- NOTE | 2021-10-03 07:29 | NUR ---
REPORT RECEIVED FROM HOLGER RN FOR CONTINUITY OF CARE
--- NOTE | 2021-10-03 07:29 | NUR ---
Pt report given to Ki EMERY. Transfer of care at this time.
--- NOTE | 2021-10-03 07:30 | NUR ---
pt c/o stabbing abd pain 10/10. 2 mg Morphine adminstered.
[2021-10-03] MEDS ORDERED: MORPHINE SULFATE 2 MG/ML SYR ONE (07:36)
[2021-10-03] MEDS: MORPHINE SULFATE 2 MG/ML SYR IVP PRN (07:40)
[2021-10-03 08:00] VITALS: BP 120/76
--- NOTE | 2021-10-03 08:00 | NUR ---
Patient will be admitted to care of DR MOON MCKEON. Admited to [facility]. Will go to room 104B. Belongings list completed. Report to NIRU EMERY.
--- NOTE | 2021-10-03 08:00 | NUR ---
PATIENT ADMITTED INTO ROOM 104B FROM ED VIA WHEELCHAIR. PT ABLE TO AMBULATE FROM WHEELCHAIR TO BED WITH STEADY GAIT. CONT TO C/O NAUSEA, NO EPISODE OF VOMITING AT THIS TIME. PT C/O ABD PAIN. INFORMED PATIENT SHE HAD MORPHINE ABOUT 30-40MINS AGO. PATIENT VERBALIZED UNDERSTANDING AND STATES PAIN IS TOLERABLE AT THIS TIME. EMESIS BAG PROVIDED. ORIENTED PATIENT TO ROOM AND UNIT, VERBALIZED UNDERSTANDING. CALL LIGHT WITHIN REACH. LEFT AC IV 20G INTACT WITH ONGOING NS @ 100ML/HR.
[2021-10-03] MEDS: METOCLOPRAMIDE 10 MG/2 ML INJ VIAL IVP PRN (09:50)
[2021-10-03] MEDS: LORazepam 2 MG/ML VIAL IVP PRN ×2 (09:55→15:25)
--- NOTE | 2021-10-03 09:55 | NUR ---
PT C/O FEELING ANXIOUS. REASSURANCE PROVIDED. ATIVAN ADMINISTERED.
[2021-10-03] MEDS: ENOXAPARIN 40 MG/0.4 ML SYR SUBQ SCH (10:24)
--- NOTE | 2021-10-03 10:30 | NUR ---
PATIENT ASLEEP AT THIS TIME, RESPIRATIONS EVEN & NONLABORED, FLACC 0.
--- NOTE | 2021-10-03 10:37 | NUR ---
PATIENT HAS BEEN SCREENED AND CATEGORIZED HIGH NUTRITION RISK. PATIENT WILL BE SEEN WITHIN 1-2 DAYS OF ADMISSION. 10/02/21-10/03/[address]
[2021-10-03] MEDS: ONDANSETRON 4 MG/2 ML VIAL IVP PRN ×2 (15:24→21:26)
--- NOTE | 2021-10-03 15:25 | NUR ---
PATIENT C/O FEELING ANXIOUS AND NAUSEATED. ATIVAN AND ZOFRAN.
--- NOTE | 2021-10-03 15:58 | NUR ---
DC PLANNING: THE PATIENT PRESENTED TO ED WITH C/O INTRACTABLE N/V. H/O DAILY MARIJUANA USE, PATIENT WITH ELEVATED B/P AND HR. GIVEN IVF'S, ZOFRAN, REGLAN AND ATIVAN. B/P REMAINS ELEVATED AT 147/109. CM ATTEMPTED TO SPEAK WITH THE PATIENT AT BEDSIDE BUT SHE WAS NOT ABLE TO STAY AWAKE AND WAS NOT ABLE TO SPEAK CLEARLY DURING THE SHORT TIME SHE WAS AWAKE. CM WILL TRY TO F/U WHEN PATIENT IS MORE ALERT.
[2021-10-03 16:00] VITALS: BP 127/65
--- NOTE | 2021-10-03 16:13 | NUR ---
10/03/21 RD INITIAL ASSESSMENT COMPLETED PLEASE REFER TO NUTRITION ASSESSMENT UNDER CARE ACTIVITY FOR ESTIMATED NUTRITIONAL NEEDS. 1. RECOMMEND FULL LIQUID DIET -WHEN/IF MEDICALLY APPROPRIATE, ADVANCE TO REGULAR DIET -RECOMMEND SWALLOW EVAL BEFORE ADVANCE TO REGULAR DIET 2. RD TO FOLLOW-UP 2-3 DAYS, HIGH RISK JORJE PARKS, RD
--- NOTE | 2021-10-03 16:25 | NUR ---
PATIENT ASLEEP, FLACC 0, RESPIRATIONS EVEN & NONLABORED.
--- NOTE | 2021-10-03 19:25 | NUR ---
RECEIVED REPORT FROM AM SHIFT NURSE FOR CONTINUITY OF CARE. PT ON BED, SLEEPING. NO S/S OF DISTRESS. ON ROOM AIR. RESPIRATIONS EVEN AND UNLABORED. SKIN IS WARM, DRY AND INTACT. IV ON LEFT AC 20G RUNNING NS @ 100ML/HR. CALL LIGHT WITHIN REACH. ALL SAFETY MEASURES IN PLACE. WILL CONTINUE TO MONITOR.
[2021-10-03 20:00] VITALS: BP 126/75
--- NOTE | 2021-10-03 21:26 | NUR ---
PT HAD EPISODE OF VOMITING, ZOFRAN IVP ADMINISTERED ORDERED. NEW EMESIS BAG PROVIDED TO PT. WILL CONTINUE TO MONITOR.
[2021-10-03 22:20] LABS: BARBITURATE, URINE NEGATIVE ng/ml (NEG <=200); BENZODIAZEPINE, URINE NEGATIVE ng/mL (NEG <=200); CANNABINOID, URINE POSITIVE ng/mL (NEG <=50); COCAINE, URINE NEGATIVE ng/mL (NEG <=300); PHENCYCLIDINE SCREEN,URINE NEGATIVE ng/mL (NEG <=25)
[2021-10-03 22:21] LABS: OPIATE, URINE POSITIVE ng/mL (NEG <=2000)
[2021-10-04] MEDS: LORazepam 2 MG/ML VIAL IVP PRN ×2 (00:23→12:41)
--- NOTE | 2021-10-04 00:23 | NUR ---
PT C/O FEELING ANXIOUS. ADMINISTERED ATIVAN ORDERED. WILL CONTINUE TO MONITOR.
[2021-10-04] MEDS: NACL 0.9% 1,000 ML IV SCH ×3 (01:55→22:09)
--- NOTE | 2021-10-04 02:30 | NUR ---
MADE ROUNDS ON PT, SLEEPING. NO S/S OF DISTRESS. RESPIRATIONS EVEN AND UNLABORED. ALL SAFETY MEASURES IN PLACE. WILL CONTINUE TO MONITOR.
[2021-10-04 04:00] VITALS: BP 127/87
[2021-10-04] MEDS: ONDANSETRON 4 MG/2 ML VIAL IVP PRN ×3 (04:05→13:10)
[2021-10-04] MEDS: MORPHINE SULFATE 2 MG/ML SYR IVP PRN ×4 (04:31→21:32)
--- NOTE | 2021-10-04 04:31 | NUR ---
PT C/O OF ABDOMINAL PAIN, PT IS CRYING AND REQUESTED PAIN MEDICATION. ADMINISTERED MORPHINE ORDERED. PT TOLERATED IT WELL. WILL CONTINUE TO MONITOR.
--- NOTE | 2021-10-04 06:32 | NUR ---
MADE ROUNDS ON PT, PT IS SLEEPING. NO S/S OF DISTRESS. RESPIRATIONS EVEN AND UNLABORED. CALL LIGHT WITHIN REACH. ALL SAFETY PRECAUTIONS IN PLACE.
[2021-10-04 06:56] LABS: BASOPHILS % (AUTO) 0.1 % (0.0-2.0); HEMATOCRIT 33.8 % (36-48); HEMOGLOBIN 11.6 g/dL (12.0-16.0); LYMPHOCYTES # (AUTO) 0.6 K/uL (2.5-16.5); LYMPHOCYTES % (AUTO) 9.7 % (20.5-51.1); MEAN CORPUSCULAR HEMOGLOBIN 30 pg (27-31); MEAN CORPUSCULAR HGB CONC 34 g/dL (33-37); MEAN CORPUSCULAR VOLUME 87.8 fL (80-94); MONOCYTES # (AUTO) 0.4 K/uL (0.8-1.0); MONOCYTES % (AUTO) 6.6 % (1.7-9.3); NEUTROPHILS # (AUTO) 4.8 K/uL (1.8-7.7); NEUTROPHILS % (AUTO) 83.6 % (42.2-75.2); PLATELET COUNT (AUTO) 231 K/uL (140-450); RED BLOOD CELL COUNT(AUTO) 3.86 MIL/uL (4.20-5.40); RED CELL DISTRIBUTION WIDTH 14.3 % (11.6-13.7); WHITE BLOOD COUNT (AUTO) 5.7 K/uL (4.8-10.8)
[2021-10-04 07:06] LABS: ANION GAP 17.2 (8-16); CARBON DIOXIDE 24.4 mmol/L (21-32); CREATININE 0.6 mg/dL (0.6-1.3); PHOSPHORUS 3.6 mg/dL (2.5-4.9); POTASSIUM 3.6 mmol/L (3.5-5.1); TOTAL BILIRUBIN 0.6 mg/dL (0.0-1.0)
--- NOTE | 2021-10-04 07:10 | NUR ---
ENDORSED PT TO AM SHIFT NURSE FOR CONTINUITY OF CARE. PT IS STABLE.
--- NOTE | 2021-10-04 07:57 | NUR ---
RECEIVED REPORT FROM DIE MOUNTER AT BEDSIDE FOR CONTINUITY OF CARE. PATIENT ALERT AWAKE ORIENTED X4, COMPLAINING OF ABDOMINAL PAIN AND NAUSEA, NO VOMITING NOTED. WITH IVF ON GOING AND INFUSING WELL. DISCUSSED THE PLAN OF CARE. NEEDS ATTENDED. WILL CONTINUE TO MONITOR.
[2021-10-04 08:00] VITALS: BP 121/69
[2021-10-04] MEDS: ENOXAPARIN 40 MG/0.4 ML SYR SUBQ SCH (08:12)
--- NOTE | 2021-10-04 12:00 | NUR ---
SEEN BY DR. MUSTAFA AND DISCUSSED THE PLAN OF CARE.
--- NOTE | 2021-10-04 12:41 | NUR ---
PATIENT VERY ANXIOUS, MEDICATED WITH ATIVAN ORDER. WILL CONTINUE TO MONITOR.
[2021-10-04 16:00] VITALS: BP 127/87
--- NOTE | 2021-10-04 18:20 | NUR ---
PATIENT TOLERATING DIET, NO NAUSEA AND VOMITING NOTED. WILL CONTINUE TO MONITOR.
--- NOTE | 2021-10-04 19:28 | NUR ---
REPORT GIVEN TO THE NEXT SHIFT FOR CONTINUITY OF CARE. PATIENT IN STABLE CONDITION.
--- NOTE | 2021-10-04 19:29 | NUR ---
RECEIVED REPORT FROM MORNING SHIFT NURSE FOR CONTINUITY OF CARE. PT IS AWAKE AND ALERT. A&OX4. VERBALLY RESPONSIVE AND ABLE TO COMMUNICATE NEEDS. DENIES PAIN AT THIS TIME. NO APPARENT S/SX OF ACUTE DISTRESS. ON RA WITH BREATHING UNLABORED. PT IS AMBULATORY. CONTINENT OF BOWEL AND BLADDER. SKIN IS WARM AND DRY. IV SITE IS ON THE LEFT AC 20G PATENT/INTACT. PLAN OF CARE AND WHITE COMMUNICATION BOARD UPDATED. BED IN LOW/LOCKED POSITION. CALL LIGHT WITHIN REACH. WILL CONTINUE TO MONITOR.
--- NOTE | 2021-10-04 19:45 | NUR ---
PATIENT PLAN OF CARE DISCUSSED AND REVIEWED WITH CALDERON DOW.
--- NOTE | 2021-10-04 21:05 | NUR ---
ANSWERED CALL LIGHT. PATIENT IS C/O GENERALIZED PAIN 06/03. WILL ENDORSE TO RN REHAN REGARDING PRN IVP. RESPIRATIONS EVEN AND UNLABORED. NO APPARENT S/SX OF ACUTE DISTRESS. WHITE BOARD COMMUNICATION UPDATED. ALL SAFETY MEASURES IN PLACE. CALL LIGHT WITHIN REACH. WILL CONTINUE TO MONITOR.
--- NOTE | 2021-10-04 23:05 | NUR ---
CHECKED PATIENT. STABLE AND RESTING COMFORTABLY IN BED. CHEST IS RISING AND FALLING. RESPIRATIONS EVEN AND UNLABORED. NO APPARENT S/SX OF ACUTE DISTRESS. WHITE COMMUNICATION BOARD UPDATED. ALL SAFETY MEASURES IN PLACE. CALL LIGHT WITHIN REACH. WILL CONTINUE TO MONITOR.
--- NOTE | 2021-10-05 01:05 | NUR ---
ROUNDED ON PATIENT. STABLE AND SLEEPING COMFORTABLY IN BED. CHEST IS RISING AND FALLING. RESPIRATIONS EVEN AND UNLABORED. NO APPARENT S/SX OF ACUTE DISTRESS. WHITE COMMUNICATION BOARD UPDATED. ALL SAFETY MEASURES IN PLACE. CALL LIGHT WITHIN REACH. WILL CONTINUE TO MONITOR.
--- NOTE | 2021-10-05 03:05 | NUR ---
CHECKED PATIENT. STABLE AND SLEEPING COMFORTABLY IN BED. CHEST RISING AND FALLING. RESPIRATIONS EVEN AND UNLABORED. NO APPARENT S/SX OF ACUTE DISTRESS. WHITE COMMUNICATION BOARD UPDATED. ALL SAFETY MEASURES IN PLACE. CALL LIGHT WITHIN REACH. WILL CONTINUE TO MONITOR.
[2021-10-05 04:00] VITALS: BP 115/75
[2021-10-05] MEDS: MORPHINE SULFATE 2 MG/ML SYR IVP PRN (06:31)
[2021-10-05] MEDS: METOCLOPRAMIDE 10 MG/2 ML INJ VIAL IVP PRN (06:33)
--- NOTE | 2021-10-05 07:05 | NUR ---
ENDORSED PATIENT TO MORNING SHIFT NURSE FOR CONTINUITY OF CARE. PATIENT IS STABLE.
--- NOTE | 2021-10-05 07:20 | NUR ---
RECEIVED REPORT FROM PM SHIFT RN FOR CONTINUITY OF CARE. PT. ALERT AND ORIENTED. RESP. NORMAL ON ROOM AIR. SAFETY MEASURES IN PLACED . WILL CONTINUE TO MONITOR THE PT. DURING SHIFT.
[2021-10-05] MEDS ORDERED: ACET-1182 PO (07:39)
[2021-10-05] MEDS ORDERED: METO-485 PO (07:39)
[2021-10-05] MEDS ORDERED: ONDA4TAB PO (07:39)
[2021-10-05] MEDS ORDERED: LORA-476 PO (07:41)
[2021-10-05] MEDS ORDERED: ACET-8386 PO (07:43)
[2021-10-05 08:00] VITALS: BP 126/58
[2021-10-05] MEDS: ENOXAPARIN 40 MG/0.4 ML SYR SUBQ SCH (08:32)
--- NOTE | 2021-10-05 09:05 | NUR ---
PATIENT IS DISCHARGED AT HOME TODAY@0905. WITH FAMILY (PRIYANK).IN STABLE CONDITION . PT. ALERT AND ORIENTED. NOT IN DISTRESSON ROOM AIR. ALL DISCHARGE INSTRUCTION AND EDUCATION PROVIDED. . VERBALIZED FULL UNDERSTANDING. D/C PIV ACCESS. DRY GAUZE DRESSING APPLIED. NO BLEEDING AT SITE. BELONGINGS HAND OVER TO PT. . PATIENT LEFT UNIT @0905..
== END 2021-10-05 10:04 | disposition home or self-care (01) ==
LOC: MED 03:28 → MMU 05:58 → UNDOADMIN 05:58 → MTU 06:21
PROVIDERS: ADMIT Student in an Organized Health Care Education/Training Program; ATTEND Student in an Organized Health Care Education/Training Program
DX: R11.2 Nausea with vomiting, unspecified (principal); F12.129 Cannabis abuse with intoxication, unspecified; D72.829 Elevated white blood cell count, unspecified; E86.1 Hypovolemia; R00.0 Tachycardia, unspecified; Z79.899 Other long term (current) drug therapy
CPT/HCPCS: 36415; 80053; 80305; 83735; 84100; 85025; 87081; 96361; 96372; 96374; 96375; 96376; G0378; G0482; J1200; J1630; J1650; J2060; J2270; J2405; J2765

== ENCOUNTER 2021-10-15 06:37 | Emergency (ER) | payer OTHER ==
[~2021-10-15] VITALS: Ht 147.3 cm; Wt 49.9 kg
[~2021-10-15 06:37] MED LIST changes: +ACET-1182 PO; +ARIP5TAB8 PO; -COG1 PO; -FAMO-90 PO; +GABA-636 PO; -IBUP-1842 PO; +METO-485 PO; -METO-486 PO; -ONDA-188 PO; -ONDA-188 SL; +ONDA4TAB PO; -PHE25S RC
[2021-10-15 06:50] VITALS: BP 126/75
--- NOTE | 2021-10-15 06:50 | NUR ---
TO BED AMBULATORY
[2021-10-15] MEDS ORDERED: ACETAMINOPHEN 325 MG TAB PO ONE (07:10)
[2021-10-15] MEDS ORDERED: METOCLOPRAMIDE 10 MG/2 ML INJ VIAL IM ONE (07:10)
[2021-10-15] MEDS ORDERED: LORazepam 1 MG TAB PO ONE (07:10)
--- NOTE | 2021-10-15 07:20 | NUR ---
Report and continuation of care received from RUPERT Boston
--- NOTE | 2021-10-15 07:30 | NUR ---
25 y/o F BIB self from home c/o anxiety, suprapubic pain x 2 days. Patient A&Ox4 ambulatory, reports low abdomen pain x 2 days 05/03, sharp/stabbing/intermittent, non-radiating. Patient also reports nausea + 4 episodes of vomiting today -blood. Abd soft/round/tender to palpation. Denies dysuria, chest pain, back pain, headache, dysuria. Denies meds prior to arrival. Bed locked in lowest position, side rails x 1. PMH: severe anxiety, muscle spasms, seizures Meds: gabapentin, ativan A: ibuprofen
[2021-10-15] MEDS ORDERED: MORPHINE SULFATE 4 MG/ML SYR IM ONE (08:05)
--- NOTE | 2021-10-15 08:12 | NUR ---
Pt states still feels nauseous and is in pain. Morphine IM to be given.
--- NOTE | 2021-10-15 08:35 | NUR ---
Pt states + relief to pain 05/03. Denies nausea/vomiting.
--- NOTE | 2021-10-15 08:40 | NUR ---
Pt states pain 5/10 + relief
[2021-10-15 08:45] VITALS: BP 126/75
== END 2021-10-15 08:42 | disposition home or self-care (01) ==
LOC: MED 06:37
DX: F41.9 Anxiety disorder, unspecified (principal); R10.30 Lower abdominal pain, unspecified; F12.10 Cannabis abuse, uncomplicated; Z88.6 Allergy status to analgesic agent
CPT/HCPCS: 81002; 81025; 96372; 99284; J2270; J2765; 96374; 96375

== ENCOUNTER 2021-11-04 21:04 | Emergency (ER) | payer OTHER ==
[~2021-11-04] VITALS: Ht 149.9 cm; Wt 49.9 kg
[2021-11-04 21:10] VITALS: BP 117/80
--- NOTE | 2021-11-04 21:21 | NUR ---
TO TENT FOLLOWING TRIAGE
--- NOTE | 2021-11-04 22:43 | NUR ---
PT CAME UP TO SAY SHE WAS IN TENT
[2021-11-05] MEDS ORDERED: ONDANSETRON 4 MG TAB PO ONE (01:55)
[2021-11-05] MEDS ORDERED: NAPR-54 PO (01:55)
[2021-11-05] MEDS ORDERED: KETOROLAC 60 MG/2 ML VIAL IM ONE (01:55)
[2021-11-05] MEDS ORDERED: MORPHINE SULFATE 2 MG/ML SYR IM ONE (01:55)
[2021-11-05] MEDS ORDERED: ACETAMINOPHEN EXTRA STRENGTH 500 MG TAB PO ONE (02:40)
[2021-11-05] MEDS ORDERED: ACETAMINOPHEN EXTRA STRENGTH 500 MG TAB ONE (02:41)
[2021-11-05 02:46] VITALS: BP 128/79
== END 2021-11-05 02:49 | disposition home or self-care (01) ==
LOC: MED 21:04
DX: R10.32 Left lower quadrant pain (principal); R11.2 Nausea with vomiting, unspecified; Z88.5 Allergy status to narcotic agent; Z88.6 Allergy status to analgesic agent; Z88.8 Allergy status to other drugs, medicaments and biological substances; Z79.899 Other long term (current) drug therapy
CPT/HCPCS: 99283; Q0162; J1885

== ENCOUNTER 2021-11-17 02:30 | Emergency (ER) | payer OTHER ==
[~2021-11-17] VITALS: Ht 149.9 cm; Wt 49.9 kg
[~2021-11-17 02:30] MED LIST changes: +NAPR-54 PO
[2021-11-17 02:37] VITALS: BP 155/117
--- NOTE | 2021-11-17 02:42 | NUR ---
PATIENT TO THE LOBBY
[2021-11-17] MEDS ORDERED: ONDANSETRON 4 MG/2 ML VIAL IVP ONE (02:45)
[2021-11-17] MEDS ORDERED: NACL 0.9% 1,000 ML IV ONE ×2 (02:45→04:40)
--- NOTE | 2021-11-17 02:55 | NUR ---
PATIENT TO CHAIR D
[2021-11-17] MEDS ORDERED: diphenhydrAMINE 50 MG/ML VIAL IVP ONE (03:05)
[2021-11-17] MEDS ORDERED: FAMOTIDINE 20 MG/2 ML VIAL ONE (03:11)
[2021-11-17] MEDS ORDERED: FAMOTIDINE 20 MG/2 ML VIAL IVP ONE (03:15)
[2021-11-17 03:18] LABS: BASOPHILS # (AUTO) 0.1 K/uL (0.00-0.22); BASOPHILS % (AUTO) 0.6 % (0.0-2.0); EOSINOPHILS # (AUTO) 0.1 K/uL (0-0.4); EOSINOPHILS % (AUTO) 0.6 % (0.0-4.0); HEMATOCRIT 38.1 % (36-48); HEMOGLOBIN 12.7 g/dL (12.0-16.0); LYMPHOCYTES # (AUTO) 1.5 K/uL (2.5-16.5); LYMPHOCYTES % (AUTO) 13.7 % (20.5-51.1); MEAN CORPUSCULAR HEMOGLOBIN 29 pg (27-31); MEAN CORPUSCULAR HGB CONC 33 g/dL (33-37); MEAN CORPUSCULAR VOLUME 86.7 fL (80-94); MONOCYTES # (AUTO) 0.4 K/uL (0.8-1.0); MONOCYTES % (AUTO) 3.5 % (1.7-9.3); NEUTROPHILS # (AUTO) 9.1 K/uL (1.8-7.7); NEUTROPHILS % (AUTO) 81.6 % (42.2-75.2); PLATELET COUNT (AUTO) 265 K/uL (140-450); RED CELL DISTRIBUTION WIDTH 14.9 % (11.6-13.7); WHITE BLOOD COUNT (AUTO) 11.1 K/uL (4.8-10.8)
--- NOTE | 2021-11-17 03:54 | NUR ---
Dr. Bond examining patient.
[2021-11-17] MEDS ORDERED: LORazepam 2 MG/ML VIAL IVP ONE (03:55)
[2021-11-17 04:16] LABS: ALBUMIN 4.9 g/dL (3.4-5.0); ANION GAP 18.2 (8-16); CARBON DIOXIDE 24.5 mmol/L (21-32); CREATININE 0.6 mg/dL (0.6-1.3); POTASSIUM 3.7 mmol/L (3.5-5.1); TOTAL BILIRUBIN 0.3 mg/dL (0.0-1.0)
[2021-11-17] MEDS ORDERED: METOCLOPRAMIDE 10 MG/2 ML INJ VIAL IVP ONE (04:25)
[2021-11-17 04:35] VITALS: BP 149/100
[2021-11-17] MEDS ORDERED: ONDA4TAB PO (05:21)
[2021-11-17 05:29] LABS: BARBITURATE, URINE NEGATIVE ng/ml (NEG <=200); BENZODIAZEPINE, URINE NEGATIVE ng/mL (NEG <=200); COCAINE, URINE NEGATIVE ng/mL (NEG <=300)
[2021-11-17 05:30] LABS: CANNABINOID, URINE POSITIVE ng/mL (NEG <=50); OPIATE, URINE NEGATIVE ng/mL (NEG <=2000); PHENCYCLIDINE SCREEN,URINE NEGATIVE ng/mL (NEG <=25)
--- NOTE | 2021-11-17 05:38 | NUR ---
d/c with VSS. d/c education given. opportunity to ask questions given and answered. rx of zofran given. IV site removed, bleeding controlled with sterile gauze and reinforced with tape.
== END 2021-11-17 05:38 | disposition home or self-care (01) ==
LOC: MED 02:30
DX: R11.15 Cyclical vomiting syndrome unrelated to migraine (principal); F12.10 Cannabis abuse, uncomplicated; Z88.6 Allergy status to analgesic agent; Z88.8 Allergy status to other drugs, medicaments and biological substances; Z79.899 Other long term (current) drug therapy
CPT/HCPCS: 36415; 80053; 80305; 85025; 96361; 96374; 96375; 99284; J1200; J2060; J2405; J2765; J3490; J7030

== ENCOUNTER 2021-11-19 14:27 | Emergency (ER) | payer OTHER ==
--- NOTE | 2021-11-19 14:43 | NUR ---
PT STATES SHE IS LEAVING BECAUSE SHE DOES NOT WANT TO WAIT.
== END 2021-11-19 14:43 | disposition left against medical advice (07) ==
LOC: MED 14:27
DX: R10.9 Unspecified abdominal pain (principal); Z53.21 Procedure and treatment not carried out due to patient leaving prior to being seen by health care provider

== ENCOUNTER 2021-12-12 06:40 | Emergency (ER) | payer OTHER ==
[~2021-12-12] VITALS: Ht 147.3 cm; Wt 49.9 kg
[2021-12-12 06:44] VITALS: BP 150/91
[2021-12-12] MEDS ORDERED: diphenhydrAMINE 50 MG/ML VIAL IVP ONE (06:50)
[2021-12-12] MEDS ORDERED: LORazepam 2 MG/ML VIAL IVP ONE (06:50)
[2021-12-12] MEDS ORDERED: METOCLOPRAMIDE 10 MG/2 ML INJ VIAL IVP ONE (06:50)
[2021-12-12] MEDS ORDERED: NACL 0.9% 1,000 ML IV ONE (06:50)
--- NOTE | 2021-12-12 06:58 | NUR ---
PT TAKEN TO BED 04.
--- NOTE | 2021-12-12 07:04 | NUR ---
26 YO F BIB SELF WITH C/C OF VOMITING X 4 HRS , ABDOMINAL PAIN, MUSCLE SPASMS , AND ANXIETY. "I HAVE SEVERE ANXIETY". HX:SEIZURES, ANXIETY ALLERGIES:HALOPERIDOL, IBUPROFEN AND TORADOL
--- NOTE | 2021-12-12 07:15 | NUR ---
Report and continuation of care received from RUPERT Boston.
--- NOTE | 2021-12-12 07:18 | NUR ---
Received patient in semi-fowlers position. Pt with one episode of muscle spasms. Reports 05/03 abdominal pain x 1 day and states vomiting since 299. quality assurance monitor chassis in place, HR 114. Bed locked in lowest position, side rails x 2. Seizure precautions in place.
[2021-12-12] MEDS ORDERED: GABAPENTIN 300 MG CAP PO ONE (07:45)
--- NOTE | 2021-12-12 08:05 | NUR ---
Dr. Singer is evaluating patient at bedside Addendum: 12/12/[address] Singer is reevaluating patient at bedside
[2021-12-12 08:06] VITALS: BP 118/75
== END 2021-12-12 08:11 | disposition home or self-care (01) ==
LOC: MED 06:40
DX: M62.838 Other muscle spasm (principal); E86.0 Dehydration; F41.9 Anxiety disorder, unspecified; R11.2 Nausea with vomiting, unspecified; F12.90 Cannabis use, unspecified, uncomplicated; Z79.899 Other long term (current) drug therapy; Z88.5 Allergy status to narcotic agent; Z88.6 Allergy status to analgesic agent; Z88.8 Allergy status to other drugs, medicaments and biological substances
CPT/HCPCS: 96361; 96374; 96375; 99284; J1200; J2060; J2765; J7030

== ENCOUNTER 2021-12-26 13:49 | Emergency (ER) | payer OTHER ==
[~2021-12-26] VITALS: Ht 149.9 cm; Wt 49.0 kg
[2021-12-26 13:54] VITALS: BP 135/100
--- NOTE | 2021-12-26 14:18 | NUR ---
VERÓNICA LITTLEJOHN AT BEDSIDE EXAMINING PT
[2021-12-26] MEDS ORDERED: ONDANSETRON 4 MG ODT PO ONE (14:20)
[2021-12-26] MEDS ORDERED: NACL 0.9% 1,000 ML IV ONE (14:20)
[2021-12-26] MEDS ORDERED: LORazepam 2 MG/ML VIAL IVP ONE (14:20)
[2021-12-26] MEDS ORDERED: diphenhydrAMINE 50 MG/ML VIAL IVP ONE (14:20)
--- NOTE | 2021-12-26 14:25 | NUR ---
26 y/o female bib self c/o anxiety, and lower right leg muscle spasm x 1 day. Pt reports taking benadryl yesterday but has run out of medication. PT reports feeling anxious due to family . Pt is A&Ox4 with steady gait. Pt denies n/v/d, fever, chest pain, sob at this time. PEMEDHX: anxiety, mdd Allergies: haloperidol, ibuprofen, ketorolac
--- NOTE | 2021-12-26 14:26 | NUR ---
urine collected and walked to lab
[2021-12-26] MEDS ORDERED: ONDA-188 SL (15:27)
[2021-12-26] MEDS ORDERED: ATA25 PO (15:27)
[2021-12-26 15:50] VITALS: BP 106/61
--- NOTE | 2021-12-26 15:51 | NUR ---
Patient discharged with v/s stable. Written and verbal after care instructions given and explained about generalized anxiety disorder. Patient alert, oriented and verbalized understanding of instructions. Ambulatory with steady gait. All questions addressed prior to discharge. ID band removed. Patient advised to follow up with PMD. Rx of atarax and zofran given. Patient educated on indication of medication including possible reaction and side effects. Opportunity to ask questions provided and answered.
== END 2021-12-26 15:50 | disposition home or self-care (01) ==
LOC: MED 13:49
DX: F41.9 Anxiety disorder, unspecified (principal); R11.2 Nausea with vomiting, unspecified; M62.838 Other muscle spasm; F17.200 Nicotine dependence, unspecified, uncomplicated; F12.90 Cannabis use, unspecified, uncomplicated; Z79.899 Other long term (current) drug therapy; Z88.5 Allergy status to narcotic agent; Z88.6 Allergy status to analgesic agent; Z88.8 Allergy status to other drugs, medicaments and biological substances
CPT/HCPCS: 81002; 81025; 96361; 96374; 96375; 99284; J1200; J2060; Q0162

== ENCOUNTER 2021-12-29 06:33 | Emergency (ER) | payer OTHER ==
[~2021-12-29] VITALS: Ht 149.9 cm; Wt 49.9 kg
[~2021-12-29 06:33] MED LIST changes: +ONDA-188 SL
[2021-12-29 06:37] VITALS: BP 137/86
--- NOTE | 2021-12-29 06:47 | NUR ---
Ambulatory to bed 4.
--- NOTE | 2021-12-29 06:56 | NUR ---
Dr. Knowles examining patient.
[2021-12-29] MEDS ORDERED: ONDANSETRON 4 MG ODT PO ONE (07:00)
[2021-12-29] MEDS ORDERED: LORazepam 2 MG/ML VIAL IM ONE (07:00)
[2021-12-29] MEDS ORDERED: ACETAMINOPHEN 325 MG TAB PO ONE (07:05)
--- NOTE | 2021-12-29 07:25 | NUR ---
RECEIVED 26 Y/O F IN BED 4, C/O Anxiety and muscle spasms x 1 day Hx: Seizure, Anxiety ALLERGIES: HADOL, TRAMDOL, MOTRIN
[2021-12-29] MEDS ORDERED: ONDA-188 PO (08:12)
--- NOTE | 2021-12-29 08:22 | NUR ---
Patient discharged with v/s stable. Written and verbal after care instructions ABOUT PANIC ATTACK AND CYCLIC VOMITING SYNDROME given and explained. Patient alert, oriented and verbalized understanding of instructions. Ambulatory with steady gait. All questions addressed prior to discharge. ID band removed. Patient advised to follow up with PMD. Rx of ZOFRAN given. Patient educated on indication of medication including possible reaction and side effects. Opportunity to ask questions provided and answered.
== END 2021-12-29 08:22 | disposition home or self-care (01) ==
LOC: MED 06:33
DX: F41.9 Anxiety disorder, unspecified (principal); R11.15 Cyclical vomiting syndrome unrelated to migraine; F12.10 Cannabis abuse, uncomplicated; Z88.8 Allergy status to other drugs, medicaments and biological substances; Z88.6 Allergy status to analgesic agent; Z79.899 Other long term (current) drug therapy
CPT/HCPCS: 81025; 96372; 99283; J2060; Q0162

== ENCOUNTER 2022-01-06 07:46 | Emergency (ER) | payer OTHER ==
[~2022-01-06] VITALS: Ht 149.9 cm; Wt 50.1 kg
[~2022-01-06 07:46] MED LIST changes: +ONDA-188 PO
[2022-01-06 07:49] VITALS: BP 126/84
--- NOTE | 2022-01-06 07:53 | NUR ---
PATIENT AMBULATED TO BED 11.
--- NOTE | 2022-01-06 08:09 | NUR ---
PATIENT PRESENTS TO ED WITH C/O 8/10 LOWER AND UPPER ABD PAIN, N/V X TODAY. DENIES DYSURIA. AAOX4 WITH EVEN AND STEADY GAIT;SKIN IS PINK/WARM/DRY;VSS; PATIENT POSITIONED FOR COMFORT; HOB ELEVATED; BEDRAILS UP X2; BED DOWN. ER MD MADE AWARE OF PT STATUS. PMH: SEVERE ANXIETY, SEIZURE.
[2022-01-06] MEDS: FAMOTIDINE 20 MG TAB PO ONE (08:12)
[2022-01-06] MEDS: ACETAMINOPHEN 325 MG TAB PO ONE (08:12)
[2022-01-06] MEDS: ONDANSETRON 4 MG ODT PO ONE (08:13)
--- NOTE | 2022-01-06 09:25 | NUR ---
PATIENT ELOPED FROM FACILITY. DISCHARGE INSTRUCTIONS NOT GIVEN TO PATIENT. DR. HORAN NOTIFIED.
== END 2022-01-06 09:25 | disposition left against medical advice (07) ==
LOC: MED 07:46
DX: R11.2 Nausea with vomiting, unspecified (principal); R19.7 Diarrhea, unspecified; Z88.8 Allergy status to other drugs, medicaments and biological substances; Z88.6 Allergy status to analgesic agent; Z79.899 Other long term (current) drug therapy
CPT/HCPCS: 81002; 81025; 99284; Q0162

== ENCOUNTER 2022-01-20 07:29 | Emergency (ER) | payer OTHER ==
[~2022-01-20] VITALS: Ht 149.9 cm; Wt 50.1 kg
[2022-01-20 07:34] VITALS: BP 114/74
--- NOTE | 2022-01-20 07:40 | NUR ---
26 Y/O F AMBULATED TO BED 7, C/O ABD 06/03 PAIN WITH N/V SINCE 3AM, TOOK ZOFRAN AT 4AM BEFORE COMINIG WITH NO RELEIF. MEDHX: ANXIETY, CYCLIC VOMITING, SEIZURE, MUSCLE SPAMS ALLERIGES: IBUPROFEN, HALDOL, TORADOL
--- NOTE | 2022-01-20 08:01 | NUR ---
UA SAMPLE WALKED TO LAB, HANDED TO ABAD
--- NOTE | 2022-01-20 08:18 | NUR ---
DR FELIPE AT BEDSIDE\
[2022-01-20] MEDS ORDERED: MORPHINE SULFATE 4 MG/ML SYR IVP ONE (08:20)
[2022-01-20] MEDS ORDERED: NACL 0.9% 1,000 ML IV ONE (08:20)
[2022-01-20] MEDS ORDERED: ONDANSETRON 4 MG/2 ML VIAL IVP ONE (08:20)
[2022-01-20 08:28] LABS: APPEARANCE,URINE SL CLOUDY (CLEAR); BILIRUBIN,URINE NEGATIVE (NEGATIVE); BLOOD, URINE TRACE-I (NEGATIVE); COLOR,URINE ORANGE (YELLOW); LEUKOCYTE ESTERASE ,URINE 2+ (NEGATIVE); NITRITE, URINE NEGATIVE (NEGATIVE); UGLUCOSE NEGATIVE (NEGATIVE)
[2022-01-20 09:13] LABS: RBC,URINE 0-5 /HPF (0-5)
[2022-01-20 09:15] LABS: TRICHOMONAS,URINE None Seen /HPF (None Seen); YEAST,URINE None Seen /HPF (None Seen)
[2022-01-20 09:16] LABS: CALCIUM OXALATE CRYSTALS,UR None Seen /HPF (None Seen); FINE GRANULAR CASTS,URINE None Seen /LPF (None Seen); HYALINE CASTS, URINE None Seen /LPF (None Seen); OTHER CRYSTALS,URINE None Seen /HPF (None Seen); TRIPLE PHOSPHATE CRYSTAL,UR None Seen /HPF (None Seen); URIC ACID CRYSTALS,URINE None Seen /HPF (None Seen); URINE AMORPHOUS URATE None Seen /HPF (None Seen)
[2022-01-20 09:17] LABS: COARSE GRANULAR CASTS,URINE None Seen /LPF (None Seen); RED BLOOD CELL CASTS,URINE None Seen /LPF (None Seen); WAXY CASTS,URINE None Seen /LPF (None Seen)
--- NOTE | 2022-01-20 09:25 | NUR ---
NOTED DECREASE IN PAIN 02/01
[2022-01-20] MEDS ORDERED: ONDA8TAB87 PO (10:07)
[2022-01-20] MEDS ORDERED: LOPE-289 PO (10:09)
[2022-01-20] MEDS ORDERED: CIPR500T4 PO (10:09)
[2022-01-20 10:18] VITALS: BP 109/62
--- NOTE | 2022-01-20 10:20 | NUR ---
Patient discharged with v/s stable. Written and verbal after care instructions given and explained. Patient alert, oriented and verbalized understanding of instructions. Ambulatory with steady gait. All questions addressed prior to discharge. ID band removed. Patient advised to follow up with PMD. Rx of CIPROFLOXACIN, LOPERAMIDE, ZOFRAN given. Patient educated on indication of medication including possible reaction and side effects. Opportunity to ask questions provided and answered.
--- NOTE | 2022-01-23 12:39 | NUR ---
LATE ENTRY, POSITIVE URINE CULTURE. DISCREPANCY CALL BACK LOG SIGNED BY DR FELIPE, TREATMENT APPROPRIATE. FORM SENT TO INFECTION CONTROL AND PLACED IN BINDER.
== END 2022-01-20 10:18 | disposition home or self-care (01) ==
LOC: MED 07:29
DX: R11.2 Nausea with vomiting, unspecified (principal); R19.7 Diarrhea, unspecified; N39.0 Urinary tract infection, site not specified; Z86.69 Personal history of other diseases of the nervous system and sense organs; Z98.890 Other specified postprocedural states; Z79.899 Other long term (current) drug therapy; Z79.1 Long term (current) use of non-steroidal anti-inflammatories (NSAID); Z79.891 Long term (current) use of opiate analgesic; Z88.6 Allergy status to analgesic agent; Z88.8 Allergy status to other drugs, medicaments and biological substances
CPT/HCPCS: 81001; 81025; 87086; 96361; 96374; 96375; 99284; J2270; J2405; J7030

== ENCOUNTER 2022-01-21 07:18 | Emergency (ER) | payer OTHER ==
[~2022-01-21] VITALS: Ht 149.9 cm; Wt 49.9 kg
[~2022-01-21 07:18] MED LIST changes: +CIPR500T4 PO; +ONDA8TAB87 PO
[2022-01-21 07:21] VITALS: BP 131/73
--- NOTE | 2022-01-21 07:29 | NUR ---
PATIENT AMBULATED TO BED 8.
--- NOTE | 2022-01-21 07:39 | NUR ---
PLACED PT ON BEDSIDE MONITOR, SEIZURE PRECAUTIONS PUT INTO PLACE, WILL CONTINUE TO MONITOR
--- NOTE | 2022-01-21 07:45 | NUR ---
26 Y/O FEMALE C/O N/V, 05/03 MID CHEST PAIN X TODAY. PT STATED SHE HAD LAST SEIZURE AT HOME 5 MINS THIS AM. DENIES LOC, RIVERA. PT DENIES DIARRHEA, CONSTIPATION. PMH: SEIZURE, ANXIETY MEDS: GABAPENTIN, ATIVAN ALLERGIES: IBUPROFEN, HALADOL, TERMIDAL
[2022-01-21] MEDS ORDERED: NACL 0.9% 1,000 ML IV ONE (07:50)
[2022-01-21] MEDS ORDERED: LORazepam 2 MG/ML VIAL IVP ONE (07:50)
--- NOTE | 2022-01-21 08:35 | NUR ---
LAB AT PATIENT BEDSIDE, URINE SAMPLE HANDED TO ABAD.
[2022-01-21] MEDS ORDERED: ONDANSETRON 4 MG/2 ML VIAL IVP ONE (08:40)
--- NOTE | 2022-01-21 08:40 | NUR ---
PATIENT REPORTS INCREASE IN NAUSEA, REQUESTING MEDS FOR SYMPTOM RELIEF. MD MADE AWARE.
[2022-01-21 08:53] LABS: APPEARANCE,URINE SL CLOUDY (CLEAR); BILIRUBIN,URINE NEGATIVE (NEGATIVE); BLOOD, URINE TRACE-L (NEGATIVE); COLOR,URINE AMBER (YELLOW); LEUKOCYTE ESTERASE ,URINE 1+ (NEGATIVE); NITRITE, URINE NEGATIVE (NEGATIVE); UGLUCOSE NEGATIVE (NEGATIVE)
--- NOTE | 2022-01-21 08:55 | NUR ---
MEDICATED PT PER ORDER, PT TOLERATED WELL, WILL REASSESS.
[2022-01-21 09:06] LABS: BASOPHILS % (AUTO) 0.3 % (0.0-2.0); EOSINOPHILS % (AUTO) 0.2 % (0.0-4.0); HEMATOCRIT 31.2 % (36-48); HEMOGLOBIN 10.6 g/dL (12.0-16.0); LYMPHOCYTES # (AUTO) 0.5 K/uL (2.5-16.5); LYMPHOCYTES % (AUTO) 9.3 % (20.5-51.1); MEAN CORPUSCULAR HEMOGLOBIN 29 pg (27-31); MEAN CORPUSCULAR HGB CONC 34 g/dL (33-37); MEAN CORPUSCULAR VOLUME 86.1 fL (80-94); MONOCYTES # (AUTO) 0.2 K/uL (0.8-1.0); NEUTROPHILS % (AUTO) 86.2 % (42.2-75.2); PLATELET COUNT (AUTO) 187 K/uL (140-450); RED BLOOD CELL COUNT(AUTO) 3.63 MIL/uL (4.20-5.40); WHITE BLOOD COUNT (AUTO) 5.7 K/uL (4.8-10.8)
--- NOTE | 2022-01-21 09:15 | NUR ---
REASSESSED PT, PT RESTING, NAUSEA SYMPTOMS SUBSIDED
[2022-01-21 09:16] LABS: ALBUMIN 3.8 g/dL (3.4-5.0); ANION GAP 12.9 (8-16); CARBON DIOXIDE 24.7 mmol/L (21-32); CREATININE 0.5 mg/dL (0.6-1.3); POTASSIUM 3.6 mmol/L (3.5-5.1); TOTAL BILIRUBIN 0.5 mg/dL (0.0-1.0)
[2022-01-21 09:39] LABS: RBC,URINE 0-5 /HPF (0-5)
[2022-01-21 09:41] LABS: CALCIUM OXALATE CRYSTALS,UR None Seen /HPF (None Seen); TRICHOMONAS,URINE None Seen /HPF (None Seen); TRIPLE PHOSPHATE CRYSTAL,UR None Seen /HPF (None Seen); URIC ACID CRYSTALS,URINE None Seen /HPF (None Seen); YEAST,URINE Few /HPF (None Seen)
[2022-01-21 09:42] LABS: FINE GRANULAR CASTS,URINE None Seen /LPF (None Seen); HYALINE CASTS, URINE None Seen /LPF (None Seen); OTHER CRYSTALS,URINE None Seen /HPF (None Seen); URINE AMORPHOUS URATE None Seen /HPF (None Seen)
[2022-01-21 09:43] LABS: COARSE GRANULAR CASTS,URINE None Seen /LPF (None Seen); OTHER CASTS, URINE None Seen /LPF (None Seen); RED BLOOD CELL CASTS,URINE None Seen /LPF (None Seen); WAXY CASTS,URINE None Seen /LPF (None Seen)
[2022-01-21] MEDS ORDERED: FLUCONAZOLE 100 MG TAB PO ONE (09:55)
--- NOTE | 2022-01-21 10:12 | NUR ---
PATIENT AMBULATED TO RESTROOM W/ STEADY GAIT.
--- NOTE | 2022-01-21 10:15 | NUR ---
PATIENT AMBULATED TO BED W/ STEADY GAIT.
[2022-01-21 10:32] VITALS: BP 113/66
== END 2022-01-21 10:32 | disposition home or self-care (01) ==
LOC: MED 07:18
DX: F41.9 Anxiety disorder, unspecified (principal); R07.89 Other chest pain; R56.9 Unspecified convulsions; R11.15 Cyclical vomiting syndrome unrelated to migraine; R00.0 Tachycardia, unspecified; Z98.890 Other specified postprocedural states; Z79.899 Other long term (current) drug therapy; Z79.2 Long term (current) use of antibiotics; Z79.891 Long term (current) use of opiate analgesic; Z79.1 Long term (current) use of non-steroidal anti-inflammatories (NSAID); Z88.8 Allergy status to other drugs, medicaments and biological substances; Z88.6 Allergy status to analgesic agent
CPT/HCPCS: 36415; 80053; 81001; 81025; 85025; 87086; 96361; 96374; 96375; 99284; J2060; J2405; J7030

== ENCOUNTER 2022-01-23 07:06 | Emergency (ER) | payer OTHER ==
[~2022-01-23] VITALS: Ht 149.9 cm; Wt 49.0 kg
[2022-01-23 07:15] VITALS: BP 120/68
--- NOTE | 2022-01-23 07:19 | NUR ---
Patient ambulated with steady gait to bed 4.
[2022-01-23] MEDS ORDERED: NACL 0.9% 1,000 ML IV ONE (07:30)
[2022-01-23] MEDS ORDERED: ONDANSETRON 4 MG/2 ML VIAL IVP ONE (07:30)
--- NOTE | 2022-01-23 07:40 | NUR ---
DOCTOR FELIPE AT BEDSIDE
[2022-01-23] MEDS ORDERED: LORazepam 2 MG/ML VIAL IVP ONE (08:05)
[2022-01-23] MEDS ORDERED: PROM25TA27 PO (08:09)
[2022-01-23] MEDS ORDERED: ATA25 PO (08:09)
--- NOTE | 2022-01-23 09:33 | NUR ---
Patient discharged with v/s stable. Written and verbal after care instructions given and explained. Patient alert, oriented and verbalized understanding of instructions. Ambulatory with steady gait. All questions addressed prior to discharge. ID band removed. IV DISCONTINUED AND REMOVED, TRIPP APPLIED WITH TAPE. Patient advised to follow up with PMD. Rx of ATARAX HCL AND PROMETHAZINE HCL given. Patient educated on indication of medication including possible reaction and side effects. Opportunity to ask questions provided and answered.
[2022-01-23 09:35] VITALS: BP 120/68
== END 2022-01-23 09:33 | disposition home or self-care (01) ==
LOC: MED 07:06
DX: R11.2 Nausea with vomiting, unspecified (principal); R19.7 Diarrhea, unspecified; Z88.5 Allergy status to narcotic agent; Z88.6 Allergy status to analgesic agent; Z88.8 Allergy status to other drugs, medicaments and biological substances; Z79.899 Other long term (current) drug therapy; Z98.890 Other specified postprocedural states
CPT/HCPCS: 81002; 81025; 96361; 96374; 96375; 99284; J2060; J2405; J7030

== ENCOUNTER 2022-02-17 10:26 | Emergency (ER) | payer OTHER ==
[~2022-02-17] VITALS: Ht 147.3 cm; Wt 50.8 kg
[~2022-02-17 10:26] MED LIST changes: +PROM25TA27 PO
[2022-02-17 10:31] VITALS: BP 114/44
[2022-02-17] MEDS ORDERED: BEN10 PO (11:05)
[2022-02-17] MEDS: NACL 0.9% 1,000 ML IV ONE (11:20)
[2022-02-17] MEDS: ONDANSETRON 4 MG/2 ML VIAL IVP ONE (11:27)
[2022-02-17] MEDS: MORPHINE SULFATE 4 MG/ML SYR IVP ONE (11:28)
[2022-02-17] MEDS: LORazepam 2 MG/ML VIAL IVP ONE (11:30)
[2022-02-17 12:15] VITALS: BP 114/44
== END 2022-02-17 12:15 | disposition home or self-care (01) ==
LOC: MED 10:26
DX: R10.2 Pelvic and perineal pain (principal); F17.200 Nicotine dependence, unspecified, uncomplicated; Z86.69 Personal history of other diseases of the nervous system and sense organs; Z98.890 Other specified postprocedural states; Z79.899 Other long term (current) drug therapy; Z79.2 Long term (current) use of antibiotics; Z79.1 Long term (current) use of non-steroidal anti-inflammatories (NSAID); Z88.8 Allergy status to other drugs, medicaments and biological substances; Z88.6 Allergy status to analgesic agent
CPT/HCPCS: 81002; 81025; 96361; 96374; 96375; 99284; J2060; J2270; J2405; J7030

== ENCOUNTER 2022-03-03 05:57 | Emergency (ER) | payer OTHER ==
[~2022-03-03] VITALS: Ht 147.3 cm; Wt 50.8 kg
[2022-03-03 06:01] VITALS: BP 116/79
--- NOTE | 2022-03-03 06:11 | NUR ---
PT TAKEN TO BED 12
--- NOTE | 2022-03-03 06:13 | NUR ---
26 YO F BIB SELF WITH C/C OF 9/10 PELVIC PAIN X3DAYS. PT REPORTS N/V XTHIS MORNING, STATES SHE THREW UP 4-5TIMES ALREADY. PT DENIES FEVER AND DIARRHEA. PT STATES SHE HAS ANXIETY WELL. PT STATES SHE HAS 2 OVARIAN CYSTS, ONE IN EACH OVARY. HX:OVARIAN CYSTS ALLERGY:HALOPERIDOL, IBUPROFEN AND TORADOL
--- NOTE | 2022-03-03 06:22 | NUR ---
Dr. Knowles examining patient.
[2022-03-03] MEDS ORDERED: ONDANSETRON 4 MG TAB PO ONE (06:30)
[2022-03-03] MEDS ORDERED: LORazepam 2 MG/ML VIAL IM ONE (06:30)
[2022-03-03] MEDS ORDERED: FAMOTIDINE 20 MG TAB PO ONE (06:30)
[2022-03-03] MEDS ORDERED: ACETAMINOPHEN EXTRA STRENGTH 500 MG TAB PO ONE (06:30)
[2022-03-03] MEDS ORDERED: ONDANSETRON 4 MG/2 ML VIAL ONE (06:38)
[2022-03-03] MEDS ORDERED: ONDANSETRON 4 MG/2 ML VIAL IM ONE (06:40)
--- NOTE | 2022-03-03 07:10 | NUR ---
Pt report given to mervat gonzalez. Transfer of care at this time.
--- NOTE | 2022-03-03 07:11 | NUR ---
RECEIVED REPORT FROM RUPERT ROUSSEAU. TRANSFER OF CARE AT THIS TIME.
[2022-03-03 08:14] VITALS: BP 102/57
--- NOTE | 2022-03-03 08:15 | NUR ---
Patient discharged with v/s stable. Written and verbal after care instructions given FOR PANIC ATTACKS AND CANNIBINOID HYPEREMESIS SYNDROME and explained. Patient verbalized understanding. Ambulatory with steady gait. All questions addressed prior to discharge. Advised to follow up with PMD.
== END 2022-03-03 08:14 | disposition home or self-care (01) ==
LOC: MED 05:57
DX: R11.2 Nausea with vomiting, unspecified (principal); F41.9 Anxiety disorder, unspecified; F12.10 Cannabis abuse, uncomplicated; Z88.5 Allergy status to narcotic agent; Z88.6 Allergy status to analgesic agent; Z88.8 Allergy status to other drugs, medicaments and biological substances; Z79.899 Other long term (current) drug therapy
CPT/HCPCS: 81002; 81025; 96372; 99284; J2060; J2405; Q0162

== ENCOUNTER 2022-03-04 08:36 | Emergency (ER) | payer OTHER ==
[~2022-03-04] VITALS: Ht 160 cm; Wt 60.3 kg
[2022-03-04 08:41] VITALS: BP 113/90
--- NOTE | 2022-03-04 08:47 | NUR ---
26 Y/O FEMALE BIBA FROM HOME PER EMT STATED PT HAD A SEIZURE AND WAS POSTICTAL [id number]. UPON EMS ARRIVAL NO INCONTINENCE NOTED, PT A&OX3, GCS14. DENIES FEVER/CHILLS. DENIES N/V/D. PMH: SEIZURES, HYPEREMESIS CANNIBINOID SYNDROME ALLERGIES: IBUPROFEN, HALDOL, AND TORADOL
[2022-03-04] MEDS ORDERED: METOCLOPRAMIDE 10 MG/2 ML INJ VIAL IVP ONE (09:20)
[2022-03-04] MEDS ORDERED: diphenhydrAMINE 50 MG/ML VIAL IVP ONE (09:20)
--- NOTE | 2022-03-04 09:23 | NUR ---
LAB AT PT BEDSIDE
[2022-03-04 09:43] LABS: BASOPHILS % (AUTO) 0.1 % (0.0-2.0); EOSINOPHILS % (AUTO) 0.1 % (0.0-4.0); HEMATOCRIT 37.7 % (36-48); HEMOGLOBIN 12.5 g/dL (12.0-16.0); LYMPHOCYTES # (AUTO) 0.7 K/uL (2.5-16.5); LYMPHOCYTES % (AUTO) 10.8 % (20.5-51.1); MEAN CORPUSCULAR HEMOGLOBIN 29 pg (27-31); MEAN CORPUSCULAR HGB CONC 33 g/dL (33-37); MEAN CORPUSCULAR VOLUME 86.7 fL (80-94); MONOCYTES # (AUTO) 0.3 K/uL (0.8-1.0); MONOCYTES % (AUTO) 3.9 % (1.7-9.3); NEUTROPHILS # (AUTO) 5.7 K/uL (1.8-7.7); NEUTROPHILS % (AUTO) 85.1 % (42.2-75.2); PLATELET COUNT (AUTO) 257 K/uL (140-450); RED BLOOD CELL COUNT(AUTO) 4.35 MIL/uL (4.20-5.40); RED CELL DISTRIBUTION WIDTH 15.5 % (11.6-13.7); WHITE BLOOD COUNT (AUTO) 6.7 K/uL (4.8-10.8)
--- NOTE | 2022-03-04 09:52 | NUR ---
US AT PT BEDSIDE
[2022-03-04 09:56] LABS: ALBUMIN 4.8 g/dL (3.4-5.0); CARBON DIOXIDE 22.8 mmol/L (21-32); CREATININE 0.6 mg/dL (0.6-1.3); POTASSIUM 3.8 mmol/L (3.5-5.1); TOTAL BILIRUBIN 0.9 mg/dL (0.0-1.0)
--- NOTE | 2022-03-04 10:16 | NUR ---
Patient does not wish to proceed with medical care recommended by . Patient given information related to possible complications, up to and including , which could occur as a result of leaving hospital at this time. Patient verbalizes understanding of risks involved leaving against medical advice. Patient has signed AMA form.
[2022-03-04 14:05] LABS: APPEARANCE,URINE CLEAR (CLEAR); COLOR,URINE YELLOW (YELLOW)
[2022-03-04 14:06] LABS: UGLUCOSE NEGATIVE (NEGATIVE)
[2022-03-04 14:07] LABS: BLOOD, URINE TRACE (NEGATIVE)
[2022-03-04 14:12] LABS: BILIRUBIN,URINE NEGATIVE (NEGATIVE); LEUKOCYTE ESTERASE ,URINE TRACE (NEGATIVE); NITRITE, URINE NEGATIVE (NEGATIVE)
[2022-03-04 14:13] LABS: RBC,URINE 0-5 /HPF (0-5); YEAST,URINE Moderate /HPF (None Seen)
[2022-03-04 14:14] LABS: CALCIUM OXALATE CRYSTALS,UR None Seen /HPF (None Seen); COARSE GRANULAR CASTS,URINE None Seen /LPF (None Seen); FINE GRANULAR CASTS,URINE None Seen /LPF (None Seen); HYALINE CASTS, URINE None Seen /LPF (None Seen); OTHER CASTS, URINE None Seen /LPF (None Seen); OTHER CRYSTALS,URINE None Seen /HPF (None Seen); RED BLOOD CELL CASTS,URINE None Seen /LPF (None Seen); TRICHOMONAS,URINE None Seen /HPF (None Seen); TRIPLE PHOSPHATE CRYSTAL,UR None Seen /HPF (None Seen); URIC ACID CRYSTALS,URINE None Seen /HPF (None Seen); URINE AMORPHOUS URATE None Seen /HPF (None Seen); WAXY CASTS,URINE None Seen /LPF (None Seen)
== END 2022-03-04 10:15 | disposition left against medical advice (07) ==
LOC: MED 08:36
DX: R10.31 Right lower quadrant pain (principal); R56.9 Unspecified convulsions; Z79.899 Other long term (current) drug therapy; Z88.5 Allergy status to narcotic agent; Z88.6 Allergy status to analgesic agent; Z88.8 Allergy status to other drugs, medicaments and biological substances
CPT/HCPCS: 36415; 80053; 81001; 81025; 82948; 83690; 85025; 87086; 96374; 96375; 99284; J1200; J2765

== ENCOUNTER 2022-06-13 04:54 | Emergency (ER) | payer OTHER ==
[~2022-06-13] VITALS: Ht 147.3 cm; Wt 49.9 kg
[2022-06-13 04:54] VITALS: BP 110/65
--- NOTE | 2022-06-13 04:59 | NUR ---
PT BIBA BLS ER BED 6
[2022-06-13] MEDS ORDERED: ONDANSETRON 4 MG/2 ML VIAL IVP ONE (05:25)
[2022-06-13] MEDS ORDERED: NACL 0.9% 1,000 ML IV ONE (05:25)
--- NOTE | 2022-06-13 06:00 | NUR ---
PATIENT ELOPED FROM FACILITY. DISCHARGE INSTRUCTIONS NOT GIVEN TO PATIENT. DR. NAVARRO NOTIFIED.
== END 2022-06-13 06:00 | disposition left against medical advice (07) ==
LOC: MED 04:54
DX: R11.2 Nausea with vomiting, unspecified (principal); F10.10 Alcohol abuse, uncomplicated; Z53.21 Procedure and treatment not carried out due to patient leaving prior to being seen by health care provider
CPT/HCPCS: 81002; 81025; 96361; 96374; 99283; J2405; J7030

== ENCOUNTER 2023-03-30 19:07 | Emergency (ER) | payer OTHER ==
[~2023-03-30] VITALS: Ht 147.3 cm; Wt 49.9 kg
[~2023-03-30 19:07] MED LIST changes: -ACET-8386 PO; +ACET-8905 PO
[2023-03-30 19:16] VITALS: BP 157/77
--- NOTE | 2023-03-30 19:21 | NUR ---
TO LOBBY FOLLOWING TRIAGE
[2023-03-30] MEDS ORDERED: ONDANSETRON 4 MG/2 ML VIAL IVP ONE (20:25)
[2023-03-30] MEDS ORDERED: NACL 0.9% 1,000 ML IV ONE (20:25)
--- NOTE | 2023-03-30 20:26 | NUR ---
Dr. Thomason examining patient.
--- NOTE | 2023-03-30 20:31 | NUR ---
PT TAKEN TO BED 11
[2023-03-30] MEDS ORDERED: LORazepam 2 MG/ML VIAL IVP ONE (20:50)
[2023-03-30 20:54] LABS: BASOPHILS % (AUTO) 0.1 % (0.0-2.0); HEMATOCRIT 36.9 % (36-48); HEMOGLOBIN 12.8 g/dL (12.0-16.0); LYMPHOCYTES # (AUTO) 0.4 K/uL (2.5-16.5); LYMPHOCYTES % (AUTO) 3.6 % (20.5-51.1); MEAN CORPUSCULAR HEMOGLOBIN 31 pg (27-31); MEAN CORPUSCULAR HGB CONC 35 g/dL (33-37); MEAN CORPUSCULAR VOLUME 88.9 fL (80-94); MONOCYTES # (AUTO) 0.2 K/uL (0.8-1.0); MONOCYTES % (AUTO) 1.6 % (1.7-9.3); NEUTROPHILS # (AUTO) 10.6 K/uL (1.8-7.7); NEUTROPHILS % (AUTO) 94.7 % (42.2-75.2); PLATELET COUNT (AUTO) 226 K/uL (140-450); RED BLOOD CELL COUNT(AUTO) 4.15 MIL/uL (4.20-5.40); RED CELL DISTRIBUTION WIDTH 14.1 % (11.6-13.7); WHITE BLOOD COUNT (AUTO) 11.2 K/uL (4.8-10.8)
[2023-03-30 21:14] LABS: ALBUMIN 5.3 g/dL (3.4-5.0); ANION GAP 18.3 (8-16); CARBON DIOXIDE 22.2 mmol/L (21-32); CREATININE 0.5 mg/dL (0.6-1.3); POTASSIUM 3.5 mmol/L (3.5-5.1); TOTAL BILIRUBIN 0.8 mg/dL (0.0-1.0)
--- NOTE | 2023-03-30 21:30 | NUR ---
PT RESTING, CALM. NO S/S OF DISTRESS NOTED.
[2023-03-30] MEDS ORDERED: ONDA-188 SL (21:58)
[2023-03-30 22:16] VITALS: BP 127/84
--- NOTE | 2023-03-30 22:16 | NUR ---
Patient discharged with v/s stable. Written and verbal after care instructions given and explained. Patient alert, oriented and verbalized understanding of instructions. Ambulatory with steady gait. All questions addressed prior to discharge. ID band removed. Patient advised to follow up with PMD. Rx of ZOFRAN ODT given. Patient educated on indication of medication including possible reaction and side effects. Opportunity to ask questions provided and answered.
--- NOTE | 2023-03-30 22:16 | NUR ---
IV DC'D, CATHETER INTACT. SMALL PRESSURE DRESSING APPLIED.
== END 2023-03-30 22:16 | disposition home or self-care (01) ==
LOC: MED 19:07
DX: R11.2 Nausea with vomiting, unspecified (principal); F41.9 Anxiety disorder, unspecified; R19.7 Diarrhea, unspecified; F12.90 Cannabis use, unspecified, uncomplicated; Z86.69 Personal history of other diseases of the nervous system and sense organs; Z79.899 Other long term (current) drug therapy; Z79.2 Long term (current) use of antibiotics; Z88.8 Allergy status to other drugs, medicaments and biological substances; Z88.6 Allergy status to analgesic agent
CPT/HCPCS: 36415; 80053; 83690; 84703; 85025; 96361; 96374; 96375; 99284; J2060; J2405; J7030

== ENCOUNTER 2023-04-01 13:22 | Emergency (ER) | payer OTHER ==
[~2023-04-01] VITALS: Ht 147.3 cm; Wt 47.6 kg
[2023-04-01 14:27] VITALS: BP 147/84
[2023-04-01] MEDS ORDERED: LORazepam 2 MG/ML VIAL IM ONE (15:10)
[2023-04-01] MEDS ORDERED: ONDANSETRON 4 MG/2 ML VIAL IM ONE (15:10)
[2023-04-01 15:31] LABS: HEMATOCRIT 35.8 % (36-48); HEMOGLOBIN 12.6 g/dL (12.0-16.0); MEAN CORPUSCULAR HEMOGLOBIN 31 pg (27-31); MEAN CORPUSCULAR HGB CONC 35 g/dL (33-37); PLATELET COUNT (AUTO) 231 K/uL (140-450); RED BLOOD CELL COUNT(AUTO) 4.06 MIL/uL (4.20-5.40); WHITE BLOOD COUNT (AUTO) 9.1 K/uL (4.8-10.8)
[2023-04-01 15:54] LABS: ALBUMIN 4.6 g/dL (3.4-5.0); ANION GAP 16.1 (8-16); CARBON DIOXIDE 22.5 mmol/L (21-32); CREATININE 0.4 mg/dL (0.6-1.3); POTASSIUM 3.6 mmol/L (3.5-5.1); TOTAL BILIRUBIN 0.9 mg/dL (0.0-1.0)
[2023-04-01 16:12] LABS: BASOPHILS % (MANUAL) 1 % (0-2); EOSINOPHILS % (MANUAL) 0 % (0-4); LYMPHOCYTES % (MANUAL) 8 % (20-46); MONOCYTES % (MANUAL) 3 % (5-12)
[2023-04-01] MEDS ORDERED: MORPHINE SULFATE 4 MG/ML SYR IM ONE (16:20)
[2023-04-01 16:34] LABS: APPEARANCE,URINE CLEAR (CLEAR); BILIRUBIN,URINE NEGATIVE (NEGATIVE); BLOOD, URINE TRACE-I (NEGATIVE); COLOR,URINE YELLOW (YELLOW); LEUKOCYTE ESTERASE ,URINE NEGATIVE (NEGATIVE); NITRITE, URINE NEGATIVE (NEGATIVE); UGLUCOSE NEGATIVE (NEGATIVE)
[2023-04-01 16:44] LABS: RBC,URINE 0-5 /HPF (0-5)
[2023-04-01] MEDS ORDERED: LID5T TP (17:14)
[2023-04-01] MEDS ORDERED: ATA25 PO (17:14)
[2023-04-01] MEDS ORDERED: ACET-10509 PO (17:14)
[2023-04-01] MEDS ORDERED: LIDOCAINE 5% 1 EA PATCH TP ONE (17:15)
[2023-04-01 18:37] VITALS: BP 118/76
--- NOTE | 2023-04-01 18:40 | NUR ---
Patient discharged with v/s stable. Written and verbal after care instructions given and explained. Patient alert, oriented and verbalized understanding of instructions. Ambulatory with steady gait. All questions addressed prior to discharge. ID band removed. Patient advised to follow up with PMD. Rx of TYLENOL, ATARAX, LIDODERM given. Patient educated on indication of medication including possible reaction and side effects. Opportunity to ask questions provided and answered.
== END 2023-04-01 18:40 | disposition home or self-care (01) ==
LOC: MED 13:22
DX: R10.32 Left lower quadrant pain (principal); R11.2 Nausea with vomiting, unspecified; F41.9 Anxiety disorder, unspecified; Z86.69 Personal history of other diseases of the nervous system and sense organs; Z98.890 Other specified postprocedural states; Z79.899 Other long term (current) drug therapy; Z79.2 Long term (current) use of antibiotics; Z88.8 Allergy status to other drugs, medicaments and biological substances; Z88.6 Allergy status to analgesic agent
CPT/HCPCS: 36415; 71045; 74018; 76856; 80053; 81001; 81025; 85025; 93976; 96372; 99285; J2060; J2270; J2405

== ENCOUNTER 2023-04-26 10:03 | Emergency (ER) | payer OTHER ==
[~2023-04-26] VITALS: Ht 149.9 cm; Wt 49.9 kg
[~2023-04-26 10:03] MED LIST changes: +ACET-10509 PO; +LID5T TP
[2023-04-26 10:19] VITALS: BP 115/96; PULSE 96; RESP 20; TEMP 97.6; O2SAT 98
--- NOTE | 2023-04-26 10:28 | NUR ---
27 yo/f w c/o anxiety, n/v (dark red), gen abd pain pressure 8/10 and dizziness since 0300 has happened in the past and told it was her anxiety. pmh: anxiety, seizures, muscle spasms allergies: haldol, ibuprofen, haldol
[2023-04-26 10:54] LABS: BILIRUBIN,URINE NEGATIVE (NEGATIVE); BLOOD, URINE 2+ (NEGATIVE); COLOR,URINE YELLOW (YELLOW); LEUKOCYTE ESTERASE ,URINE 1+ (NEGATIVE); NITRITE, URINE NEGATIVE (NEGATIVE); PH,URINE 7.5 (5.0-9.0); UGLUCOSE NEGATIVE (NEGATIVE)
[2023-04-26 11:07] LABS: APPEARANCE,URINE HAZY (CLEAR)
[2023-04-26 11:08] LABS: CALCIUM OXALATE CRYSTALS,UR None Seen /HPF (None Seen); COARSE GRANULAR CASTS,URINE None Seen /LPF (None Seen); FINE GRANULAR CASTS,URINE None Seen /LPF (None Seen); HYALINE CASTS, URINE None Seen /LPF (None Seen); OTHER CASTS, URINE None Seen /LPF (None Seen); OTHER CRYSTALS,URINE None Seen /HPF (None Seen); RED BLOOD CELL CASTS,URINE None Seen /LPF (None Seen); TRICHOMONAS,URINE None Seen /HPF (None Seen); TRIPLE PHOSPHATE CRYSTAL,UR None Seen /HPF (None Seen); URIC ACID CRYSTALS,URINE None Seen /HPF (None Seen); URINE AMORPHOUS URATE None Seen /HPF (None Seen); WAXY CASTS,URINE None Seen /LPF (None Seen); YEAST,URINE None Seen /HPF (None Seen)
[2023-04-26] MEDS ORDERED: diphenhydrAMINE 50 MG/ML VIAL IVP ONE (11:20)
[2023-04-26] MEDS ORDERED: FAMOTIDINE 20 MG/2 ML VIAL IVP ONE (11:20)
[2023-04-26] MEDS ORDERED: ONDANSETRON 4 MG/2 ML VIAL IVP ONE (11:20)
[2023-04-26] MEDS ORDERED: NACL 0.9% 1,000 ML IV ONE (11:20)
[2023-04-26 11:49] VITALS: O2SAT 98
[2023-04-26 11:49] LABS: BASOPHILS % (AUTO) 0.2 % (0.0-2.0); EOSINOPHILS % (AUTO) 0.2 % (0.0-4.0); HEMOGLOBIN 12.9 g/dL (12.0-16.0); LYMPHOCYTES # (AUTO) 0.5 K/uL (2.5-16.5); LYMPHOCYTES % (AUTO) 4.4 % (20.5-51.1); MEAN CORPUSCULAR HEMOGLOBIN 31 pg (27-31); MEAN CORPUSCULAR HGB CONC 35 g/dL (33-37); MEAN CORPUSCULAR VOLUME 88.5 fL (80-94); MONOCYTES # (AUTO) 0.3 K/uL (0.8-1.0); MONOCYTES % (AUTO) 2.8 % (1.7-9.3); NEUTROPHILS # (AUTO) 11.2 K/uL (1.8-7.7); NEUTROPHILS % (AUTO) 92.4 % (42.2-75.2); PLATELET COUNT (AUTO) 252 K/uL (140-450); RED BLOOD CELL COUNT(AUTO) 4.18 MIL/uL (4.20-5.40); RED CELL DISTRIBUTION WIDTH 13.6 % (11.6-13.7); WHITE BLOOD COUNT (AUTO) 12.1 K/uL (4.8-10.8)
[2023-04-26 12:03] LABS: ALBUMIN 4.6 g/dL (3.4-5.0); ANION GAP 15.1 (8-16); CARBON DIOXIDE 25.6 mmol/L (21-32); CREATININE 0.5 mg/dL (0.6-1.3); POTASSIUM 3.7 mmol/L (3.5-5.1); TOTAL BILIRUBIN 0.7 mg/dL (0.0-1.0)
--- NOTE | 2023-04-26 12:54 | NUR ---
pt reports feeling better, no ongoing n/v. however abdominal pain 06/03 requesting pain meds,. rajendra kuhn made aware.
[2023-04-26] MEDS ORDERED: ONDA-188 PO (13:18)
[2023-04-26] MEDS ORDERED: ALPR0.5T2 PO (13:18)
[2023-04-26] MEDS ORDERED: FAMO-92 PO (13:18)
[2023-04-26 13:37] VITALS: BP 111/78; PULSE 83; RESP 20
== END 2023-04-26 13:37 | disposition home or self-care (01) ==
LOC: MED 10:03
DX: R11.2 Nausea with vomiting, unspecified (principal); F12.90 Cannabis use, unspecified, uncomplicated; F41.9 Anxiety disorder, unspecified; Z86.69 Personal history of other diseases of the nervous system and sense organs; Z86.39 Personal history of other endocrine, nutritional and metabolic disease; Z98.890 Other specified postprocedural states; Z79.899 Other long term (current) drug therapy; Z79.2 Long term (current) use of antibiotics; Z79.1 Long term (current) use of non-steroidal anti-inflammatories (NSAID); Z88.8 Allergy status to other drugs, medicaments and biological substances; Z88.6 Allergy status to analgesic agent
CPT/HCPCS: 36415; 80053; 81001; 81025; 83690; 85025; 87086; 96361; 96374; 96375; 99284; J1200; J2405; J3490; J7030

== ENCOUNTER 2023-04-27 08:07 | Emergency (ER) | payer OTHER ==
[~2023-04-27] VITALS: Ht 149.9 cm; Wt 47.6 kg
[~2023-04-27 08:07] MED LIST changes: +ALPR0.5T2 PO
[2023-04-27 08:11] VITALS: BP 133/76; PULSE 94; RESP 20; TEMP 98; O2SAT 98
[2023-04-27] MEDS ORDERED: FAMOTIDINE 20 MG/2 ML VIAL IVP ONE (08:45)
[2023-04-27] MEDS ORDERED: NACL 0.9% 1,000 ML IV ONE (08:45)
[2023-04-27] MEDS ORDERED: ONDANSETRON 4 MG/2 ML VIAL IVP ONE (08:45)
[2023-04-27] MEDS ORDERED: DICYCLOMINE HCL LIQUID 20 MG, ALUMINUM HYD/MAG/SIMETHICONE 30 ML, LIDOCAINE VISCOUS 2% ... PO ONE ×3 (08:50)
[2023-04-27 08:55] LABS: BASOPHILS % (AUTO) 0.7 % (0.0-2.0); EOSINOPHILS % (AUTO) 0.9 % (0.0-4.0); HEMATOCRIT 35.9 % (36-48); HEMOGLOBIN 12.3 g/dL (12.0-16.0); LYMPHOCYTES # (AUTO) 0.8 K/uL (2.5-16.5); MEAN CORPUSCULAR HEMOGLOBIN 31 pg (27-31); MEAN CORPUSCULAR HGB CONC 34 g/dL (33-37); MEAN CORPUSCULAR VOLUME 89.7 fL (80-94); MONOCYTES # (AUTO) 0.2 K/uL (0.8-1.0); MONOCYTES % (AUTO) 3.5 % (1.7-9.3); NEUTROPHILS % (AUTO) 79.9 % (42.2-75.2); PLATELET COUNT (AUTO) 229 K/uL (140-450); RED BLOOD CELL COUNT(AUTO) 4.01 MIL/uL (4.20-5.40); RED CELL DISTRIBUTION WIDTH 13.8 % (11.6-13.7)
[2023-04-27 09:03] VITALS: O2SAT 99
--- NOTE | 2023-04-27 09:06 | NUR ---
PATIENT PRESENTS TO ED WITH WITH MIDLINE ABD PAIN . PT STATES SHE HAS BEEN HAVING THIS PAIN FOR 2 DAYS. . PT HAS SYMPTOMS OF N/V/ BUT DEINIES ANY SYMPTOMS OF DIARREHA; SKIN IS PINK/WARM/DRY; AAOX4 WITH EVEN AND STEADY GAIT; LUNGS CLEAR BL; HR EVEN AND REGULAR; PT DENIES ANY FEVER, CP, SOB, OR COUGH AT THIS TIME; PATIENT STATES PAIN OF 8/10 AT THIS TIME; VSS; PATIENT POSITIONED FOR COMFORT; HOB ELEVATED; BEDRAILS UP X2; BED DOWN. ER MD MADE AWARE OF PT STATUS.
[2023-04-27 09:11] LABS: ALBUMIN 4.3 g/dL (3.4-5.0); ANION GAP 15.7 (8-16); CARBON DIOXIDE 24.1 mmol/L (21-32); CREATININE 0.5 mg/dL (0.6-1.3); POTASSIUM 3.8 mmol/L (3.5-5.1); TOTAL BILIRUBIN 0.6 mg/dL (0.0-1.0)
[2023-04-27] MEDS ORDERED: DICYCLOMINE HCL LIQUID 10 MG/5 ML UDC ONE (09:14)
[2023-04-27] MEDS ORDERED: ALUMINUM HYD/MAG/SIMETHICONE 30 ML UDC ONE (09:14)
--- NOTE | 2023-04-27 09:46 | NUR ---
Pt has been medicated per providers orders. Pts family at bedside.
--- NOTE | 2023-04-27 10:22 | NUR ---
PT STATES PAIN HAS REDUCED 11/03
--- NOTE | 2023-04-27 10:56 | NUR ---
Patient discharged with v/s stable. IV removed. Written and verbal after care instructions given and explained. Patient verbalized understanding. Ambulatory with steady gait. All questions addressed prior to discharge. Advised to follow up with PMD.
[2023-04-27 10:57] VITALS: BP 110/77; PULSE 75; RESP 14; TEMP 97.3; O2SAT 99
--- NOTE | 2023-04-27 12:33 | NUR ---
The patient's care was reviewed and supervised by DEBBY JESUS RN.
== END 2023-04-27 10:56 | disposition home or self-care (01) ==
LOC: MED 08:07
DX: R10.13 Epigastric pain (principal); R11.2 Nausea with vomiting, unspecified; F41.9 Anxiety disorder, unspecified; E05.90 Thyrotoxicosis, unspecified without thyrotoxic crisis or storm; Z86.69 Personal history of other diseases of the nervous system and sense organs; Z79.899 Other long term (current) drug therapy; Z88.8 Allergy status to other drugs, medicaments and biological substances; Z88.6 Allergy status to analgesic agent
CPT/HCPCS: 36415; 74177; 80053; 81025; 83690; 84703; 85025; 96361; 96374; 96375; 99285; J2405; J3490; J7030; Q9967

== ENCOUNTER 2023-05-02 07:56 | Emergency (ER) | payer OTHER ==
[~2023-05-02] VITALS: Ht 147.3 cm; Wt 47.6 kg
[2023-05-02 07:58] VITALS: BP 124/101; PULSE 105; RESP 20; TEMP 97.8; O2SAT 96
--- NOTE | 2023-05-02 08:05 | NUR ---
pt ambulated to bed 11 with spouse.
--- NOTE | 2023-05-02 08:29 | NUR ---
Pt bibs for epigastric pain with nausea since last night. Pt has this issue regularly. Pt states she was seen in ED last Wednesday for the same reason. Pt is a/o x 4, vss, no ss of acute distress, breathing equal and unlabored, speech clear. Pain is 9/10, burning, non radiating, constant. IV started, labs handed to laborer at bedside.
[2023-05-02 08:33] LABS: BASOPHILS % (AUTO) 0.3 % (0.0-2.0); EOSINOPHILS % (AUTO) 0.1 % (0.0-4.0); HEMATOCRIT 38.7 % (36-48); HEMOGLOBIN 13.3 g/dL (12.0-16.0); LYMPHOCYTES # (AUTO) 0.8 K/uL (2.5-16.5); LYMPHOCYTES % (AUTO) 9.6 % (20.5-51.1); MEAN CORPUSCULAR HEMOGLOBIN 31 pg (27-31); MEAN CORPUSCULAR HGB CONC 34 g/dL (33-37); MEAN CORPUSCULAR VOLUME 90.4 fL (80-94); MONOCYTES # (AUTO) 0.3 K/uL (0.8-1.0); MONOCYTES % (AUTO) 3.7 % (1.7-9.3); NEUTROPHILS # (AUTO) 6.9 K/uL (1.8-7.7); NEUTROPHILS % (AUTO) 86.3 % (42.2-75.2); PLATELET COUNT (AUTO) 279 K/uL (140-450); RED BLOOD CELL COUNT(AUTO) 4.28 MIL/uL (4.20-5.40); RED CELL DISTRIBUTION WIDTH 13.9 % (11.6-13.7)
[2023-05-02] MEDS ORDERED: FAMOTIDINE 20 MG/2 ML VIAL IVP ONE (08:40)
[2023-05-02] MEDS ORDERED: diphenhydrAMINE 50 MG/ML VIAL IVP ONE ×2 (08:40→09:15)
[2023-05-02] MEDS ORDERED: NACL 0.9% 1,000 ML IV ONE (08:40)
[2023-05-02] MEDS ORDERED: METOCLOPRAMIDE 10 MG/2 ML INJ VIAL IVP ONE (08:40)
[2023-05-02 08:48] LABS: ALBUMIN 4.9 g/dL (3.4-5.0); ANION GAP 12.8 (8-16); CARBON DIOXIDE 26.1 mmol/L (21-32); CREATININE 0.6 mg/dL (0.6-1.3); POTASSIUM 3.9 mmol/L (3.5-5.1); TOTAL BILIRUBIN 0.8 mg/dL (0.0-1.0)
[2023-05-02] MEDS ORDERED: LORazepam 2 MG/ML VIAL IVP ONE (09:15)
[2023-05-02 09:39] LABS: APPEARANCE,URINE CLEAR (CLEAR); BILIRUBIN,URINE NEGATIVE (NEGATIVE); BLOOD, URINE NEGATIVE (NEGATIVE); COLOR,URINE YELLOW (YELLOW); LEUKOCYTE ESTERASE ,URINE TRACE (NEGATIVE); NITRITE, URINE NEGATIVE (NEGATIVE); UGLUCOSE NEGATIVE (NEGATIVE)
[2023-05-02] MEDS ORDERED: ONDA-188 SL (10:01)
[2023-05-02 10:28] VITALS: BP 118/91; PULSE 92; RESP 16; O2SAT 98
--- NOTE | 2023-05-02 10:31 | NUR ---
Patient discharged with v/s stable. Written and verbal after care instructions given and explained. Patient alert, oriented and verbalized understanding of instructions. Ambulatory with steady gait. All questions addressed prior to discharge. ID band removed. Patient advised to follow up with PMD. Rx reviewed with pt. Patient educated on indication of medication including possible reaction and side effects. Opportunity to ask questions provided and answered.
== END 2023-05-02 10:28 | disposition home or self-care (01) ==
LOC: MED 07:56
DX: R11.2 Nausea with vomiting, unspecified (principal); R10.13 Epigastric pain; E03.9 Hypothyroidism, unspecified; G40.909 Epilepsy, unspecified, not intractable, without status epilepticus; Z88.5 Allergy status to narcotic agent; Z79.1 Long term (current) use of non-steroidal anti-inflammatories (NSAID); Z88.8 Allergy status to other drugs, medicaments and biological substances; Z79.899 Other long term (current) drug therapy
CPT/HCPCS: 36415; 80053; 81001; 81025; 83690; 85025; 87086; 96361; 96374; 96375; 96376; 99284; J1200; J2060; J2765; J3490

== ENCOUNTER 2023-05-02 21:39 | Emergency (ER) | payer OTHER ==
[~2023-05-02] VITALS: Ht 149.9 cm; Wt 50.3 kg
[2023-05-02 21:47] VITALS: BP 135/93; PULSE 90; RESP 20; TEMP 98.2; O2SAT 96
--- NOTE | 2023-05-02 21:59 | NUR ---
Pt to bed 4
--- NOTE | 2023-05-02 22:14 | NUR ---
Patient resting in bed, A/Ox4, chest rise and fall symmetrical, no s/s of distress, on monitor.
--- NOTE | 2023-05-02 22:15 | NUR ---
ER physician at bedside assessing patient.
[2023-05-02] MEDS ORDERED: ONDANSETRON 4 MG/2 ML VIAL IVP ONE (22:30)
[2023-05-02] MEDS ORDERED: LORazepam 2 MG/ML VIAL IVP ONE (22:30)
[2023-05-02] MEDS ORDERED: diphenhydrAMINE 50 MG/ML VIAL IVP ONE (22:30)
[2023-05-02] MEDS ORDERED: NACL 0.9% 1,000 ML IV ONE (22:30)
[2023-05-02 22:56] LABS: BASOPHILS % (AUTO) 0.3 % (0.0-2.0); EOSINOPHILS % (AUTO) 0.1 % (0.0-4.0); HEMATOCRIT 37.3 % (36-48); HEMOGLOBIN 12.8 g/dL (12.0-16.0); LYMPHOCYTES # (AUTO) 0.5 K/uL (2.5-16.5); LYMPHOCYTES % (AUTO) 4.4 % (20.5-51.1); MEAN CORPUSCULAR HEMOGLOBIN 31 pg (27-31); MEAN CORPUSCULAR HGB CONC 34 g/dL (33-37); MONOCYTES # (AUTO) 0.2 K/uL (0.8-1.0); MONOCYTES % (AUTO) 1.8 % (1.7-9.3); NEUTROPHILS # (AUTO) 11.5 K/uL (1.8-7.7); NEUTROPHILS % (AUTO) 93.4 % (42.2-75.2); PLATELET COUNT (AUTO) 158 K/uL (140-450); RED BLOOD CELL COUNT(AUTO) 4.14 MIL/uL (4.20-5.40); RED CELL DISTRIBUTION WIDTH 14.1 % (11.6-13.7); WHITE BLOOD COUNT (AUTO) 12.3 K/uL (4.8-10.8)
[2023-05-02 23:21] LABS: ANION GAP 16.9 (8-16); CARBON DIOXIDE 22.6 mmol/L (21-32); CREATININE 0.5 mg/dL (0.6-1.3); POTASSIUM 3.5 mmol/L (3.5-5.1); TOTAL BILIRUBIN 0.8 mg/dL (0.0-1.0)
--- NOTE | 2023-05-02 23:29 | NUR ---
Patient resting in bed with eyes closed, A/Ox4, chest rise and fall symmetrical, no c/o pain or s/s of distress, on monitor. Addendum: 05/03/23 at 0127 by [id number] Patient resting in bed with eyes closed, A/Ox4, chest rise and fall symmetrical, no c/o pain or s/s of distress, on monitor, seizure pads in place.
--- NOTE | 2023-05-03 01:00 | NUR ---
Patient resting in bed with eyes closed, A/Ox4, chest rise and fall symmetrical, no c/o pain or s/s of distress, on monitor. Addendum: 05/03/23 at 0127 by [id number] Patient resting in bed with eyes closed, A/Ox4, chest rise and fall symmetrical, no c/o pain or s/s of distress, on monitor, seizure pads in place.
[2023-05-03 01:35] VITALS: BP 121/85; PULSE 91; RESP 18; TEMP 98.3; O2SAT 99
== END 2023-05-03 01:35 | disposition home or self-care (01) ==
LOC: MED 21:39
DX: R11.15 Cyclical vomiting syndrome unrelated to migraine (principal); G40.909 Epilepsy, unspecified, not intractable, without status epilepticus; E03.9 Hypothyroidism, unspecified; Z88.5 Allergy status to narcotic agent; Z79.1 Long term (current) use of non-steroidal anti-inflammatories (NSAID); Z88.8 Allergy status to other drugs, medicaments and biological substances; Z79.899 Other long term (current) drug therapy
CPT/HCPCS: 36415; 80053; 81002; 81025; 83690; 85025; 96361; 96374; 96375; 99284; J1200; J2060; J2405; J7030

== ENCOUNTER 2023-06-02 05:50 | Emergency (ER) | payer OTHER ==
[~2023-06-02] VITALS: Ht 147.3 cm; Wt 49.9 kg
[~2023-06-02 05:50] MED LIST changes: +CEPH-588 PO; +OMEP20EC11 PO
[2023-06-02 06:07] VITALS: BP 133/90; PULSE 90; RESP 18; TEMP 97.6; O2SAT 100
--- NOTE | 2023-06-02 06:07 | NUR ---
to bed ambulatory
[2023-06-02] MEDS ORDERED: NACL 0.9% 1,000 ML IV ONE (06:20)
[2023-06-02] MEDS ORDERED: ONDANSETRON 4 MG/2 ML VIAL IVP ONE (06:20)
--- NOTE | 2023-06-02 06:30 | NUR ---
UA collected and sent to lab
[2023-06-02 06:31] LABS: APPEARANCE,URINE CLEAR (CLEAR); BILIRUBIN,URINE NEGATIVE (NEGATIVE); BLOOD, URINE NEGATIVE (NEGATIVE); COLOR,URINE YELLOW (YELLOW); LEUKOCYTE ESTERASE ,URINE NEGATIVE (NEGATIVE); NITRITE, URINE NEGATIVE (NEGATIVE); UGLUCOSE NEGATIVE (NEGATIVE)
--- NOTE | 2023-06-02 06:39 | NUR ---
27 YO F BIB SELF C/O ABD PAIN, NAUSEA, VOMITING, AND ANXIETY SINCE 3AM THIS MORNING. PT STATES SHE WOKE UP FROM SLEEP FEELING ANXIETY AND BEGAN VOMITING. STATES SHE HAS HX OF ANXIETY ATTACKS. PT ACTIVELY VOMITING AT BEDSIDE. BED IN LOWEST POSITION. SAFETY MEASURES IN PLACE. CALL LIGHT WITHIN REACH. ALLERGIES: HALOPERIDOL, IBUPROFEN, KETOROLAC PMHX: ANXIETY
[2023-06-02 06:41] LABS: BASOPHILS % (AUTO) 0.9 % (0.0-2.0); EOSINOPHILS # (AUTO) 0.1 K/uL (0-0.4); EOSINOPHILS % (AUTO) 1.1 % (0.0-4.0); HEMATOCRIT 34.2 % (36-48); HEMOGLOBIN 11.7 g/dL (12.0-16.0); LYMPHOCYTES # (AUTO) 1.1 K/uL (2.5-16.5); MEAN CORPUSCULAR HEMOGLOBIN 31 pg (27-31); MEAN CORPUSCULAR HGB CONC 34 g/dL (33-37); MEAN CORPUSCULAR VOLUME 89.7 fL (80-94); MONOCYTES # (AUTO) 0.3 K/uL (0.8-1.0); MONOCYTES % (AUTO) 6.1 % (1.7-9.3); NEUTROPHILS # (AUTO) 3.8 K/uL (1.8-7.7); NEUTROPHILS % (AUTO) 70.9 % (42.2-75.2); PLATELET COUNT (AUTO) 286 K/uL (140-450); RED BLOOD CELL COUNT(AUTO) 3.82 MIL/uL (4.20-5.40); RED CELL DISTRIBUTION WIDTH 12.7 % (11.6-13.7); WHITE BLOOD COUNT (AUTO) 5.3 K/uL (4.8-10.8)
[2023-06-02 06:50] LABS: ALBUMIN 4.3 g/dL (3.4-5.0); ANION GAP 15.7 (8-16); CARBON DIOXIDE 23.8 mmol/L (21-32); CREATININE 0.6 mg/dL (0.6-1.3); POTASSIUM 3.5 mmol/L (3.5-5.1); TOTAL BILIRUBIN 0.5 mg/dL (0.0-1.0)
[2023-06-02] MEDS ORDERED: METOCLOPRAMIDE 10 MG/2 ML INJ VIAL IVP ONE (06:55)
--- NOTE | 2023-06-02 07:26 | NUR ---
Pt report given to CALDERON GIL. Transfer of care at this time.
[2023-06-02 07:35] VITALS: O2SAT 98
[2023-06-02] MEDS ORDERED: LORazepam 2 MG/ML VIAL IVP ONE (07:35)
[2023-06-02] MEDS ORDERED: diphenhydrAMINE 50 MG/ML VIAL ONE (07:42)
[2023-06-02] MEDS ORDERED: diphenhydrAMINE 50 MG/ML VIAL IVP ONE (07:45)
[2023-06-02 07:52] LABS: BARBITURATE, URINE NEGATIVE ng/ml (NEG <=200); BENZODIAZEPINE, URINE NEGATIVE ng/mL (NEG <=200); CANNABINOID, URINE POSITIVE ng/mL (NEG <=50); COCAINE, URINE NEGATIVE ng/mL (NEG <=300); OPIATE, URINE POSITIVE ng/mL (NEG <=2000); PHENCYCLIDINE SCREEN,URINE NEGATIVE ng/mL (NEG <=25)
[2023-06-02 08:01] VITALS: PULSE 78; RESP 24; TEMP 97.1; O2SAT 99
--- NOTE | 2023-06-02 08:01 | NUR ---
PT AT BEDSIDE ANXIOUS STATING SHE NEEDS ATIVAN AND BENADRYL BECAUSE HER TONGUE IS SPASMING. PT HYPERVERBAL, HYPERACTIVE, UNEASE. PT ON PHYSICIAN CHIEF OF PATHOLOGY, SAFETY MAINTAINED, CALL LIGHT WITHIN REACH.
--- NOTE | 2023-06-02 08:31 | NUR ---
PT DEMANDING MORE BENADRYL AND ATIVAN. AWARE
[2023-06-02] MEDS ORDERED: ONDA-188 SL (08:40)
--- NOTE | 2023-06-02 08:40 | NUR ---
The patient's care was reviewed and supervised by BRYAN NEVILLE RN.
[2023-06-02 09:42] VITALS: BP 128/88
== END 2023-06-02 08:40 | disposition home or self-care (01) ==
LOC: MED 05:50
DX: R11.2 Nausea with vomiting, unspecified (principal); R10.9 Unspecified abdominal pain; E86.0 Dehydration; G40.909 Epilepsy, unspecified, not intractable, without status epilepticus; Z88.5 Allergy status to narcotic agent; Z79.1 Long term (current) use of non-steroidal anti-inflammatories (NSAID); Z88.8 Allergy status to other drugs, medicaments and biological substances; Z79.899 Other long term (current) drug therapy
CPT/HCPCS: 36415; 80053; 80305; 81003; 81025; 83690; 85025; 96361; 96374; 96375; 99285; J1200; J2060; J2405; J2765; J7030

== ENCOUNTER 2023-08-14 05:07 | Emergency (ER) | payer OTHER ==
[~2023-08-14] VITALS: Ht 147.3 cm; Wt 68.0 kg
[2023-08-14 06:05] VITALS: BP 140/105; PULSE 84; RESP 18; TEMP 97.4; O2SAT 100
[2023-08-14] MEDS ORDERED: NACL 0.9% 1,000 ML IV SCH (06:30)
[2023-08-14] MEDS ORDERED: METOCLOPRAMIDE 10 MG/2 ML INJ VIAL IVP ONE (06:30)
[2023-08-14] MEDS ORDERED: LORazepam 2 MG/ML VIAL IVP ONE (07:20)
[2023-08-14 07:29] LABS: APPEARANCE,URINE CLEAR (CLEAR); BILIRUBIN,URINE NEGATIVE (NEGATIVE); BLOOD, URINE NEGATIVE (NEGATIVE); COLOR,URINE YELLOW (YELLOW); LEUKOCYTE ESTERASE ,URINE NEGATIVE (NEGATIVE); NITRITE, URINE NEGATIVE (NEGATIVE); PH,URINE 6.5 (5.0-9.0); PROTEIN,URINE 1+ (NEGATIVE); UGLUCOSE NEGATIVE (NEGATIVE); UROBILINOGEN,URINE 0.2 EU/dL (0.2 - 1)
[2023-08-14] MEDS ORDERED: diphenhydrAMINE 50 MG/ML VIAL IVP ONE ×2 (07:45→08:30)
[2023-08-14] MEDS ORDERED: NACL 0.9% 1,000 ML IV ONE ×2 (08:40→11:00)
[2023-08-14] MEDS ORDERED: PROCHLORPERAZINE 10 MG/2 ML VIAL IVP ONE (08:40)
[2023-08-14] MEDS ORDERED: PROCHLORPERAZINE 10 MG/2 ML VIAL ONE (09:41)
[2023-08-14] MEDS ORDERED: PROC-87 PO (11:10)
[2023-08-14 11:25] VITALS: BP 121/64; PULSE 78; RESP 16; TEMP 97.5; O2SAT 98
[2023-08-14] MEDS ORDERED: HYDR25CA1 PO (20:13)
== END 2023-08-14 11:48 | disposition home or self-care (01) ==
LOC: MED 05:07
DX: R11.10 Vomiting, unspecified (principal); E86.0 Dehydration; R10.30 Lower abdominal pain, unspecified; F41.9 Anxiety disorder, unspecified; Z86.69 Personal history of other diseases of the nervous system and sense organs; Z79.899 Other long term (current) drug therapy; Z79.2 Long term (current) use of antibiotics; Z79.1 Long term (current) use of non-steroidal anti-inflammatories (NSAID); Z88.8 Allergy status to other drugs, medicaments and biological substances; Z88.6 Allergy status to analgesic agent
CPT/HCPCS: 81003; 81025; 96361; 96374; 96375; 96376; 99285; J0780; J1200; J2060; J2765

== ENCOUNTER 2023-08-14 17:01 | Emergency (ER) | payer OTHER ==
[~2023-08-14] VITALS: Ht 147.3 cm; Wt 45.4 kg
[~2023-08-14 17:01] MED LIST changes: +PROC-87 PO
[2023-08-14 17:15] VITALS: BP 157/98; PULSE 84; RESP 20; TEMP 97.9; O2SAT 98
[2023-08-14 17:30] VITALS: BP 157/98; PULSE 84; RESP 20; TEMP 97.9
[2023-08-14] MEDS ORDERED: LORazepam 1 MG TAB PO ONE (17:45)
[2023-08-14 18:15] VITALS: O2SAT 98
[2023-08-14] MEDS ORDERED: NACL 0.9% 1,000 ML IV ONE (19:00)
[2023-08-14] MEDS ORDERED: diphenhydrAMINE 50 MG/ML VIAL IVP ONE (19:00)
[2023-08-14] MEDS ORDERED: METOCLOPRAMIDE 10 MG/2 ML INJ VIAL IVP ONE (19:00)
[2023-08-14] MEDS ORDERED: HYDR25CA1 PO (20:13)
== END 2023-08-14 20:30 | disposition home or self-care (01) ==
LOC: MED 17:01
DX: F41.0 Panic disorder [episodic paroxysmal anxiety] (principal); Z88.5 Allergy status to narcotic agent; Z88.8 Allergy status to other drugs, medicaments and biological substances; Z79.899 Other long term (current) drug therapy
CPT/HCPCS: 81025; 96361; 96374; 96375; 99284; J1200; J2765; J7030; Q0163

== ENCOUNTER 2023-09-07 11:19 | Emergency (ER) | payer OTHER ==
[~2023-09-07] VITALS: Ht 165.1 cm; Wt 46.3 kg
[~2023-09-07 11:19] MED LIST changes: +HYDR25CA1 PO
[2023-09-07 11:23] VITALS: BP 156/99; PULSE 84; RESP 20; TEMP 97.7; O2SAT 98
[2023-09-07 11:41] VITALS: BP 156/99; PULSE 84; RESP 20; TEMP 97.7; O2SAT 98
[2023-09-07] MEDS ORDERED: NACL 0.9% 1,000 ML IV ONE (12:20)
[2023-09-07] MEDS ORDERED: ONDANSETRON 4 MG/2 ML VIAL IVP ONE (12:35)
[2023-09-07] MEDS ORDERED: diphenhydrAMINE 50 MG/ML VIAL IVP ONE (12:35)
[2023-09-07 12:54] LABS: BASOPHILS % (AUTO) 0.2 % (0.0-2.0); HEMATOCRIT 38.2 % (36-48); HEMOGLOBIN 12.7 g/dL (12.0-16.0); LYMPHOCYTES # (AUTO) 0.8 K/uL (2.5-16.5); LYMPHOCYTES % (AUTO) 7.3 % (20.5-51.1); MEAN CORPUSCULAR HEMOGLOBIN 29 pg (27-31); MEAN CORPUSCULAR HGB CONC 33 g/dL (33-37); MEAN CORPUSCULAR VOLUME 87.9 fL (80-94); MONOCYTES # (AUTO) 0.4 K/uL (0.8-1.0); MONOCYTES % (AUTO) 3.7 % (1.7-9.3); NEUTROPHILS # (AUTO) 10.3 K/uL (1.8-7.7); NEUTROPHILS % (AUTO) 88.8 % (42.2-75.2); PLATELET COUNT (AUTO) 293 K/uL (140-450); RED BLOOD CELL COUNT(AUTO) 4.34 MIL/uL (4.20-5.40); WHITE BLOOD COUNT (AUTO) 11.6 K/uL (4.8-10.8)
[2023-09-07 13:10] LABS: APPEARANCE,URINE CLEAR (CLEAR); BILIRUBIN,URINE NEGATIVE (NEGATIVE); BLOOD, URINE NEGATIVE (NEGATIVE); COLOR,URINE YELLOW (YELLOW); LEUKOCYTE ESTERASE ,URINE NEGATIVE (NEGATIVE); NITRITE, URINE NEGATIVE (NEGATIVE); PROTEIN,URINE NEGATIVE (NEGATIVE); UGLUCOSE NEGATIVE (NEGATIVE); UROBILINOGEN,URINE 0.2 EU/dL (0.2 - 1)
[2023-09-07 13:19] LABS: BACTERIA,URINE OCCASSIONAL /HPF (None Seen); CANNABINOID, URINE POSITIVE ng/mL (NEG <=50); RBC,URINE 0-5 /HPF (0-5); SQUAMOUS EPITHELIAL CELL,UR 0-3 (FEW) /LPF (0-3 (FEW)); WBC,URINE 0-5 /HPF (0-5)
[2023-09-07 13:20] LABS: AMPHETAMINE, URINE NEGATIVE ng/ml (NEG <=1000); BARBITURATE, URINE NEGATIVE ng/ml (NEG <=200); BENZODIAZEPINE, URINE NEGATIVE ng/mL (NEG <=200); COCAINE, URINE NEGATIVE ng/mL (NEG <=300); OPIATE, URINE NEGATIVE ng/mL (NEG <=2000); PHENCYCLIDINE SCREEN,URINE NEGATIVE ng/mL (NEG <=25)
[2023-09-07] MEDS ORDERED: LORazepam 1 MG TAB PO ONE (13:20)
[2023-09-07 13:23] LABS: ALBUMIN 4.8 g/dL (3.4-5.0); CALCIUM 9.3 mg/dL (8.5-10.1); CARBON DIOXIDE 24.9 mmol/L (21-32); CREATININE 0.6 mg/dL (0.6-1.3); POTASSIUM 3.9 mmol/L (3.5-5.1); THYROID STIMULATING HORMONE 0.4 uIU/mL (0.34-3.74); TOTAL BILIRUBIN 0.6 mg/dL (0.0-1.0); TOTAL PROTEIN, SERUM 8.2 g/dL (6.4-8.2)
[2023-09-07] MEDS ORDERED: METOCLOPRAMIDE 10 MG/2 ML INJ VIAL IM ONE (14:30)
[2023-09-07] MEDS ORDERED: METOCLOPRAMIDE 10 MG/2 ML INJ VIAL IVP ONE (14:30)
[2023-09-08] MEDS ORDERED: METO-485 PO (03:20)
[2023-09-08] MEDS ORDERED: ATI.5 PO ×2 (03:20→18:13)
[2023-09-08] MEDS ORDERED: ATA10 PO (18:13)
[2023-09-08] MEDS ORDERED: LEVE100021 PO (18:13)
[2023-09-08] MEDS ORDERED: TRAZ-466 PO (18:13)
== END 2023-09-07 14:45 | disposition left against medical advice (07) ==
LOC: MED 11:19
DX: F41.9 Anxiety disorder, unspecified (principal); R11.2 Nausea with vomiting, unspecified; G40.909 Epilepsy, unspecified, not intractable, without status epilepticus; Z88.5 Allergy status to narcotic agent; Z88.8 Allergy status to other drugs, medicaments and biological substances; Z79.1 Long term (current) use of non-steroidal anti-inflammatories (NSAID); Z79.899 Other long term (current) drug therapy
CPT/HCPCS: 36415; 80053; 80305; 81001; 81025; 84443; 85025; 93005; 96361; 96374; 96375; 99284; G0482; J1200; J2405; J7030

== ENCOUNTER 2023-09-08 00:45 | Emergency (ER) | payer OTHER ==
[~2023-09-08] VITALS: Ht 147.3 cm; Wt 47.6 kg
[2023-09-08 00:50] VITALS: BP 140/75; PULSE 90; RESP 16; TEMP 98.2; O2SAT 100
[2023-09-08] MEDS ORDERED: LORazepam 2 MG/ML VIAL IVP ONE (02:10)
[2023-09-08] MEDS ORDERED: diphenhydrAMINE 50 MG/ML VIAL IVP ONE (02:10)
[2023-09-08] MEDS ORDERED: NACL 0.9% 1,000 ML IV ONE (02:10)
[2023-09-08] MEDS ORDERED: METOCLOPRAMIDE 10 MG/2 ML INJ VIAL IVP ONE (02:10)
[2023-09-08 02:40] VITALS: O2SAT 100
[2023-09-08] MEDS ORDERED: METO-485 PO (03:20)
[2023-09-08] MEDS ORDERED: ATI.5 PO ×2 (03:20→18:13)
[2023-09-08] MEDS ORDERED: TRAZ-466 PO (18:13)
[2023-09-08] MEDS ORDERED: ATA10 PO (18:13)
[2023-09-08] MEDS ORDERED: LEVE100021 PO (18:13)
== END 2023-09-08 04:01 | disposition home or self-care (01) ==
LOC: MED 00:45
DX: R11.2 Nausea with vomiting, unspecified (principal); F12.90 Cannabis use, unspecified, uncomplicated; Z71.6 Tobacco abuse counseling; Z86.69 Personal history of other diseases of the nervous system and sense organs; Z79.899 Other long term (current) drug therapy; Z79.2 Long term (current) use of antibiotics; Z79.1 Long term (current) use of non-steroidal anti-inflammatories (NSAID); Z88.8 Allergy status to other drugs, medicaments and biological substances; Z88.6 Allergy status to analgesic agent
CPT/HCPCS: 96361; 96374; 96375; 99284; J1200; J2060; J2765; J7030

== ENCOUNTER 2023-09-08 14:15 | Inpatient (IN) | payer OTHER ==
[~2023-09-08] VITALS: Ht 147.3 cm; Wt 47.6 kg
[~2023-09-08 14:15] MED LIST changes: +ATI.5 PO
[2023-09-08 14:30] VITALS: BP 115/50; PULSE 105; RESP 16; TEMP 98.4; O2SAT 100
[2023-09-08] MEDS ORDERED: NACL 0.9% 1,000 ML IV ONE (15:00)
[2023-09-08] MEDS ORDERED: diphenhydrAMINE 50 MG/ML VIAL IVP ONE (15:00)
[2023-09-08] MEDS ORDERED: ONDANSETRON 4 MG/2 ML VIAL IVP ONE (15:00)
[2023-09-08 15:39] LABS: BASOPHILS % (AUTO) 0.1 % (0.0-2.0); HEMATOCRIT 37.7 % (36-48); HEMOGLOBIN 12.8 g/dL (12.0-16.0); LYMPHOCYTES # (AUTO) 0.8 K/uL (2.5-16.5); LYMPHOCYTES % (AUTO) 8.5 % (20.5-51.1); MEAN CORPUSCULAR HEMOGLOBIN 30 pg (27-31); MEAN CORPUSCULAR HGB CONC 34 g/dL (33-37); MEAN CORPUSCULAR VOLUME 87.4 fL (80-94); MONOCYTES # (AUTO) 0.5 K/uL (0.8-1.0); MONOCYTES % (AUTO) 6.1 % (1.7-9.3); NEUTROPHILS # (AUTO) 7.6 K/uL (1.8-7.7); NEUTROPHILS % (AUTO) 85.3 % (42.2-75.2); PLATELET COUNT (AUTO) 287 K/uL (140-450); RED BLOOD CELL COUNT(AUTO) 4.32 MIL/uL (4.20-5.40); RED CELL DISTRIBUTION WIDTH 15.2 % (11.6-13.7); WHITE BLOOD COUNT (AUTO) 8.9 K/uL (4.8-10.8)
[2023-09-08 15:52] LABS: ALBUMIN 4.8 g/dL (3.4-5.0); ANION GAP 14.3 (8-16); CALCIUM 9.3 mg/dL (8.5-10.1); CARBON DIOXIDE 24.2 mmol/L (21-32); CREATININE 0.6 mg/dL (0.6-1.3); POTASSIUM 3.5 mmol/L (3.5-5.1); TOTAL PROTEIN, SERUM 8.4 g/dL (6.4-8.2)
[2023-09-08] MEDS ORDERED: diphenhydrAMINE 50 MG/ML VIAL ONE (16:44)
[2023-09-08] MEDS ORDERED: ONDANSETRON 4 MG/2 ML VIAL ONE (16:44)
[2023-09-08 16:55] VITALS: O2SAT 100
[2023-09-08 17:20] VITALS: TEMP 98.3
[2023-09-08] MEDS ORDERED: LORazepam 1 MG TAB PO PRN (18:05)
[2023-09-08] MEDS ORDERED: ONDANSETRON 4 MG/2 ML VIAL IVP PRN (18:05)
[2023-09-08] MEDS ORDERED: ZOLPIDEM 5 MG TAB PO PRN (18:05)
[2023-09-08] MEDS ORDERED: ACETAMINOPHEN 325 MG TAB PO PRN (18:05)
[2023-09-08] MEDS ORDERED: MAGNESIUM OXIDE 400 MG TAB PO PRN (18:05)
[2023-09-08] MEDS ORDERED: MAG SULF 2000 MG/WATER PREMIX 50 ML IV PRN (18:05)
[2023-09-08] MEDS ORDERED: HYDROcodone/APAP 5/325 MG 1 TAB TAB PO PRN (18:05)
[2023-09-08] MEDS ORDERED: KCL 20 MEQ IN 100 mL PREMIX 200 ML IV PRN (18:05)
[2023-09-08] MEDS ORDERED: ATI.5 PO (18:13)
[2023-09-08] MEDS ORDERED: ATA10 PO (18:13)
[2023-09-08] MEDS ORDERED: LEVE100021 PO (18:13)
[2023-09-08] MEDS ORDERED: TRAZ-466 PO (18:13)
[2023-09-08 19:34] VITALS: O2SAT 100
[2023-09-08 19:42] VITALS: BP 110/59; PULSE 84; RESP 18; O2SAT 100
[2023-09-09] MEDS ORDERED: GABAPENTIN 100 MG CAP PO SCH (09:00)
[2023-09-09] MEDS ORDERED: ARIPiprazole 10 MG TAB PO SCH (09:00)
[2023-09-09] MEDS ORDERED: DOCUSATE SODIUM 100 MG GELCAP PO SCH (09:00)
[2023-09-09] MEDS ORDERED: LIDOCAINE 5% 1 EA PATCH TP SCH (09:00)
== END 2023-09-08 20:06 | disposition left against medical advice (07) | DRG 249 ==
LOC: MED 14:15 → MMU 18:30
PROVIDERS: ADMIT Student in an Organized Health Care Education/Training Program; ATTEND Student in an Organized Health Care Education/Training Program
DX: R11.2 Nausea with vomiting, unspecified (principal); E86.1 Hypovolemia; F12.10 Cannabis abuse, uncomplicated; F41.9 Anxiety disorder, unspecified; Z53.29 Procedure and treatment not carried out because of patient's decision for other reasons; Z88.1 Allergy status to other antibiotic agents; Z88.8 Allergy status to other drugs, medicaments and biological substances; Z79.899 Other long term (current) drug therapy; Z79.1 Long term (current) use of non-steroidal anti-inflammatories (NSAID)
CPT/HCPCS: 36415; 80053; 83690; 85025; 96361; 96374; 96375; 99285; J1200; J2405

== ENCOUNTER 2023-09-22 19:20 | Emergency (ER) | payer OTHER ==
[~2023-09-22] VITALS: Ht 147.3 cm; Wt 45.4 kg
[~2023-09-22 19:20] MED LIST changes: +ATA10 PO; +LEVE100021 PO; +TRAZ-466 PO
[2023-09-22 20:00] VITALS: BP 150/90; PULSE 109; RESP 18; TEMP 98.3
[2023-09-22] MEDS ORDERED: METOCLOPRAMIDE 10 MG/2 ML INJ VIAL IM ONE (22:40)
[2023-09-22 23:26] LABS: AMPHETAMINE, URINE NEGATIVE ng/ml (NEG <=1000); BARBITURATE, URINE NEGATIVE ng/ml (NEG <=200); BENZODIAZEPINE, URINE POSITIVE ng/mL (NEG <=200)
[2023-09-22 23:27] LABS: CANNABINOID, URINE POSITIVE ng/mL (NEG <=50); COCAINE, URINE NEGATIVE ng/mL (NEG <=300); OPIATE, URINE NEGATIVE ng/mL (NEG <=2000); PHENCYCLIDINE SCREEN,URINE NEGATIVE ng/mL (NEG <=25)
[2023-09-22] MEDS ORDERED: NACL 0.9% 1,000 ML IV ONE (23:55)
[2023-09-22] MEDS ORDERED: LORazepam 2 MG/ML VIAL IVP ONE (23:55)
[2023-09-22] MEDS ORDERED: METOCLOPRAMIDE 10 MG/2 ML INJ VIAL IVP ONE (23:55)
[2023-09-22] MEDS ORDERED: diphenhydrAMINE 50 MG/ML VIAL IVP ONE (23:55)
[2023-09-23 00:08] LABS: BASOPHILS % (AUTO) 0.4 % (0.0-2.0); EOSINOPHILS % (AUTO) 0.2 % (0.0-4.0); HEMATOCRIT 35.6 % (36-48); HEMOGLOBIN 12.1 g/dL (12.0-16.0); LYMPHOCYTES # (AUTO) 0.6 K/uL (2.5-16.5); LYMPHOCYTES % (AUTO) 6.5 % (20.5-51.1); MEAN CORPUSCULAR HEMOGLOBIN 30 pg (27-31); MEAN CORPUSCULAR HGB CONC 34 g/dL (33-37); MEAN CORPUSCULAR VOLUME 87.5 fL (80-94); MONOCYTES # (AUTO) 0.2 K/uL (0.8-1.0); NEUTROPHILS # (AUTO) 8.5 K/uL (1.8-7.7); NEUTROPHILS % (AUTO) 90.9 % (42.2-75.2); PLATELET COUNT (AUTO) 293 K/uL (140-450); RED BLOOD CELL COUNT(AUTO) 4.06 MIL/uL (4.20-5.40); RED CELL DISTRIBUTION WIDTH 14.9 % (11.6-13.7); WHITE BLOOD COUNT (AUTO) 9.4 K/uL (4.8-10.8)
[2023-09-23 00:41] LABS: ALBUMIN 5.1 g/dL (3.4-5.0); ANION GAP 17.9 (8-16); CALCIUM 9.3 mg/dL (8.5-10.1); CARBON DIOXIDE 21.4 mmol/L (21-32); CREATININE 0.5 mg/dL (0.6-1.3); POTASSIUM 4.3 mmol/L (3.5-5.1); TOTAL BILIRUBIN 1.1 mg/dL (0.0-1.0); TOTAL PROTEIN, SERUM 8.6 g/dL (6.4-8.2)
[2023-09-23] MEDS ORDERED: CAPS42.514 TP (01:19)
[2023-09-23] MEDS ORDERED: ONDA-188 PO (01:19)
[2023-09-23 01:25] VITALS: BP 150/90; PULSE 109; RESP 18; TEMP 98.3
== END 2023-09-23 01:25 | disposition home or self-care (01) ==
LOC: MED 19:20
DX: R11.2 Nausea with vomiting, unspecified (principal); F12.90 Cannabis use, unspecified, uncomplicated; E86.0 Dehydration; F41.9 Anxiety disorder, unspecified; E03.9 Hypothyroidism, unspecified; Z86.69 Personal history of other diseases of the nervous system and sense organs; Z79.899 Other long term (current) drug therapy; Z79.2 Long term (current) use of antibiotics; Z79.1 Long term (current) use of non-steroidal anti-inflammatories (NSAID); Z88.8 Allergy status to other drugs, medicaments and biological substances; Z88.6 Allergy status to analgesic agent
CPT/HCPCS: 36415; 80053; 80305; 81025; 85025; 96361; 96372; 96374; 96375; 99284; J1200; J2060; J2765; J7030

== ENCOUNTER 2023-10-20 17:02 | Emergency (ER) | payer OTHER ==
[~2023-10-20] VITALS: Ht 167.6 cm; Wt 59.0 kg
[~2023-10-20 17:02] MED LIST changes: +CAPS42.514 TP
[2023-10-20 17:26] VITALS: BP 143/93; PULSE 107; RESP 20; TEMP 97.6; O2SAT 98
[2023-10-20] MEDS ORDERED: NACL 0.9% 1,000 ML IV SCH (19:45)
[2023-10-20] MEDS ORDERED: ONDANSETRON 4 MG/2 ML VIAL IVP ONE ×2 (19:45→22:55)
[2023-10-20 20:43] LABS: BASOPHILS % (AUTO) 0.3 % (0.0-2.0); HEMATOCRIT 35.9 % (36-48); HEMOGLOBIN 12.3 g/dL (12.0-16.0); LYMPHOCYTES # (AUTO) 0.4 K/uL (2.5-16.5); LYMPHOCYTES % (AUTO) 3.5 % (20.5-51.1); MEAN CORPUSCULAR HEMOGLOBIN 30 pg (27-31); MEAN CORPUSCULAR HGB CONC 34 g/dL (33-37); MEAN CORPUSCULAR VOLUME 87.9 fL (80-94); MONOCYTES # (AUTO) 0.2 K/uL (0.8-1.0); MONOCYTES % (AUTO) 1.5 % (1.7-9.3); NEUTROPHILS # (AUTO) 12.3 K/uL (1.8-7.7); NEUTROPHILS % (AUTO) 94.7 % (42.2-75.2); PLATELET COUNT (AUTO) 291 K/uL (140-450); RED BLOOD CELL COUNT(AUTO) 4.09 MIL/uL (4.20-5.40); RED CELL DISTRIBUTION WIDTH 15.2 % (11.6-13.7)
[2023-10-20 20:57] LABS: ANION GAP 15.3 (8-16); CALCIUM 9.2 mg/dL (8.5-10.1); CREATININE 0.5 mg/dL (0.6-1.3); POTASSIUM 3.3 mmol/L (3.5-5.1)
[2023-10-20 21:04] LABS: ALBUMIN 4.6 g/dL (3.4-5.0); BILIRUBIN,DIRECT 0.1 mg/dL (0.0-0.3); TOTAL BILIRUBIN 0.6 mg/dL (0.0-1.0); TOTAL PROTEIN, SERUM 8.4 g/dL (6.4-8.2)
[2023-10-20 22:35] VITALS: O2SAT 98
[2023-10-20] MEDS ORDERED: HALOPERIDOL IM 5 MG/ML VIAL IM ONE (22:55)
[2023-10-20] MEDS ORDERED: NACL 0.9% 1,000 ML IV ONE (22:55)
[2023-10-20] MEDS ORDERED: LORazepam 2 MG/ML VIAL IVP ONE (23:10)
[2023-10-20] MEDS ORDERED: diphenhydrAMINE 50 MG/ML VIAL IVP ONE (23:25)
[2023-10-20 23:29] LABS: APPEARANCE,URINE SL CLOUDY (CLEAR); BILIRUBIN,URINE NEGATIVE (NEGATIVE); BLOOD, URINE TRACE-I (NEGATIVE); COLOR,URINE YELLOW (YELLOW); LEUKOCYTE ESTERASE ,URINE NEGATIVE (NEGATIVE); NITRITE, URINE NEGATIVE (NEGATIVE); PROTEIN,URINE TRACE (NEGATIVE); UGLUCOSE NEGATIVE (NEGATIVE); UROBILINOGEN,URINE 0.2 EU/dL (0.2 - 1)
[2023-10-21] LABS: BACTERIA,URINE >30 (MANY) /HPF (None Seen); MUCUS,URINE 1+ /LPF (None Seen); RBC,URINE 0-5 /HPF (0-5); SQUAMOUS EPITHELIAL CELL,UR 0-3 (FEW) /LPF (0-3 (FEW)); URINE AMORPHOUS URATE 3+ /HPF (None Seen); WBC,URINE 0-5 /HPF (0-5)
[2023-10-21] MEDS ORDERED: HYDROXYZINE HYDROCHLORIDE 25 MG TAB PO PRN (00:50)
[2023-10-22] MEDS ORDERED: CAPS42.514 TP ×2 (00:48→00:50)
[2023-10-22] MEDS ORDERED: ACET-10509 PO ×2 (00:48→00:50)
[2023-10-22] MEDS ORDERED: FAMO-92 PO ×2 (00:48→00:50)
== END 2023-10-21 01:38 | disposition home or self-care (01) ==
LOC: MED 17:02
DX: R11.15 Cyclical vomiting syndrome unrelated to migraine (principal); E03.9 Hypothyroidism, unspecified; F41.9 Anxiety disorder, unspecified; Z86.69 Personal history of other diseases of the nervous system and sense organs; Z79.899 Other long term (current) drug therapy; Z79.2 Long term (current) use of antibiotics; Z79.1 Long term (current) use of non-steroidal anti-inflammatories (NSAID); Z88.8 Allergy status to other drugs, medicaments and biological substances; Z88.6 Allergy status to analgesic agent
CPT/HCPCS: 36415; 71045; 80048; 80076; 81001; 81025; 82150; 83690; 85025; 87086; 96361; 96372; 96374; 96375; 99284; J1200; J1630; J2060; J2405; J7030; Q0092

== ENCOUNTER 2023-10-21 20:09 | Emergency (ER) | payer OTHER ==
[~2023-10-21] VITALS: Ht 160 cm; Wt 52.2 kg
[2023-10-21 20:10] VITALS: BP 150/88; PULSE 95; RESP 18; TEMP 97.9; O2SAT 96
[2023-10-21 21:07] LABS: BASOPHILS % (AUTO) 0.3 % (0.0-2.0); EOSINOPHILS # (AUTO) 0.1 K/uL (0-0.4); EOSINOPHILS % (AUTO) 0.6 % (0.0-4.0); HEMOGLOBIN 12.4 g/dL (12.0-16.0); LYMPHOCYTES # (AUTO) 1.1 K/uL (2.5-16.5); LYMPHOCYTES % (AUTO) 10.6 % (20.5-51.1); MEAN CORPUSCULAR HEMOGLOBIN 30 pg (27-31); MEAN CORPUSCULAR HGB CONC 35 g/dL (33-37); MEAN CORPUSCULAR VOLUME 87.1 fL (80-94); MONOCYTES # (AUTO) 0.5 K/uL (0.8-1.0); MONOCYTES % (AUTO) 5.2 % (1.7-9.3); NEUTROPHILS # (AUTO) 8.8 K/uL (1.8-7.7); NEUTROPHILS % (AUTO) 83.3 % (42.2-75.2); PLATELET COUNT (AUTO) 273 K/uL (140-450); RED BLOOD CELL COUNT(AUTO) 4.13 MIL/uL (4.20-5.40); RED CELL DISTRIBUTION WIDTH 15.2 % (11.6-13.7); WHITE BLOOD COUNT (AUTO) 10.5 K/uL (4.8-10.8)
[2023-10-21 21:25] LABS: ANION GAP 16.5 (8-16); CALCIUM 9.3 mg/dL (8.5-10.1); CARBON DIOXIDE 23.8 mmol/L (21-32); CREATININE 0.5 mg/dL (0.6-1.3); POTASSIUM 3.3 mmol/L (3.5-5.1)
[2023-10-21 21:32] LABS: ALBUMIN 4.6 g/dL (3.4-5.0); TOTAL BILIRUBIN 0.7 mg/dL (0.0-1.0); TOTAL PROTEIN, SERUM 8.2 g/dL (6.4-8.2)
[2023-10-21 22:32] LABS: APPEARANCE,URINE CLEAR (CLEAR); BILIRUBIN,URINE NEGATIVE (NEGATIVE); BLOOD, URINE TRACE-I (NEGATIVE); COLOR,URINE YELLOW (YELLOW); LEUKOCYTE ESTERASE ,URINE NEGATIVE (NEGATIVE); NITRITE, URINE NEGATIVE (NEGATIVE); PROTEIN,URINE NEGATIVE (NEGATIVE); UGLUCOSE NEGATIVE (NEGATIVE); UROBILINOGEN,URINE 0.2 EU/dL (0.2 - 1)
[2023-10-21 22:43] LABS: BACTERIA,URINE 10-30 (MOD) /HPF (None Seen); MUCUS,URINE 1+ /LPF (None Seen); RBC,URINE 0-5 /HPF (0-5); SQUAMOUS EPITHELIAL CELL,UR 0-3 (FEW) /LPF (0-3 (FEW)); WBC,URINE 0-5 /HPF (0-5)
[2023-10-21] MEDS ORDERED: METOCLOPRAMIDE 10 MG/2 ML INJ VIAL IM ONE (23:55)
[2023-10-21] MEDS ORDERED: LORazepam 2 MG/ML VIAL IM ONE (23:55)
[2023-10-22] MEDS ORDERED: FAMO-92 PO ×2 (00:48→00:50)
[2023-10-22] MEDS ORDERED: CAPS42.514 TP ×2 (00:48→00:50)
[2023-10-22] MEDS ORDERED: ACET-10509 PO ×2 (00:48→00:50)
[2023-10-22 01:03] VITALS: BP 150/88; PULSE 95; RESP 18; TEMP 97.9; O2SAT 96
== END 2023-10-22 01:03 | disposition home or self-care (01) ==
LOC: MED 20:09
DX: R11.15 Cyclical vomiting syndrome unrelated to migraine (principal); F41.9 Anxiety disorder, unspecified; E03.9 Hypothyroidism, unspecified; Z88.5 Allergy status to narcotic agent; Z79.1 Long term (current) use of non-steroidal anti-inflammatories (NSAID); Z88.8 Allergy status to other drugs, medicaments and biological substances; Z79.899 Other long term (current) drug therapy
CPT/HCPCS: 36415; 80053; 81001; 83690; 85025; 87086; 96372; 99284; J2060; J2765